=== PATIENT | female | born 1965 | race Caucasian/White ===

== ENCOUNTER 2016-10-24 11:18 | Emergency (ER) | payer OTHER ==
[2016-10-24 11:38] VITALS: BMI 30.9
[2016-10-24] MEDS ORDERED: ALBUTEROL SO4 2.5/IPRATROPIUM 0.5 INH SOL 3 ML VIAL.NEB. NEB ONE (12:40)
--- NOTE | 2016-10-24 12:40 | PDOC ---
History of Present Illness - History of Present Illness Initial Comments: 10/24/16 12:46 The patient is a 51 year old female with a past medical hx of seizures, bipolar disorder, and schizoaffective disorder who presents to the ED complaining of a cough and shortness of breath for four days. The patient states the cough is nonproductive. She notes she just recovered from the flu. She has been using her Nebulizer treatment with no relief. She reports she is a resident at [facility] and a Doctor came two days ago for a check up of the residents. She states he checked her heart and blood pressure. She reports a decrease in appetite, and chills. She denies fever, chest pain She denies nausea, vomiting, diarrhea Allergies: Penicillin, Sulfa, Codeine, latex Social: [facility] resident Surgical: Cholecystectomy PCP: Dr. Joan Hernandez <Edith Chambers - Last Filed: 10/24/16 13:02> - General History Source: Patient Exam Limitations: No Limitations <Prema Whitney - Last Filed: 10/24/16 16:37> - General Chief Complaint: Shortness of Breath Stated Complaint: SOB Time Seen by Provider: 10/24/16 11:40 Past History <Edith Chambers - Last Filed: 10/24/16 13:02> - Past Medical History Anemia: No Asthma: Yes Cancer: No Cardiac Disorders: No CVA: No COPD: Yes CHF: No Dementia: No Diabetes: No GI Disorders: Yes (ACID REFLUX,HEP C) Disorders: No HTN: No Hypercholesterolemia: No Kidney Stones: No Liver Disease: Yes (cirrhosis, Hep C) Psychiatric Problems: Yes (bipolar, anxiety) Suicide Attempt (Hx): Yes (PT DO,'T WANT TO ANSWER THIS QUESTION.) Seizures: Yes Thyroid Disease: No - Surgical History Abdominal Surgery: No Appendectomy: No Cardiac Surgery: No Cholecystectomy: Yes Lung Surgery: No Neurologic Surgery: No Orthopedic Surgery: No - Reproductive History PID: No - Immunization History Immunization Up to Date: Yes - Psycho/Social/Smoking Cessation Hx Anxiety: No Suicidal Ideation: No Smoking History: Current every day smoker Have you smoked in the past 12 months: Yes Number of Cigarettes Smoked Daily: 1 Information on smoking cessation initiated: Yes 'Breaking Loose' booklet given: 07/22/15 Hx Alcohol Use: No Drug/Substance Use Hx: No Substance Use Type: Cocaine, Opiates Hx Substance Use Treatment: Yes (completed this program in 2005.) <Prema Whitney - Last Filed: 10/24/16 16:37> - Past Medical History Allergies/Adverse Reactions: Allergies Allergy/AdvReac Type Severity Reaction Status Date / Time Penicillins Allergy Severe Rash Verified 08/29/16 22:17 Sulfa (Sulfonamide Allergy Severe Rash Verified 08/29/16 22:17 Antibiotics) azithromycin [From Zithromax] Allergy Verified 10/24/16 11:40 codeine Allergy Hives Verified 08/29/16 22:17 erythromycin base Allergy Verified 10/24/16 11:40 haloperidol [From Haldol] Allergy Swelling Verified 08/29/16 22:17 iodine Allergy Verified 10/24/16 11:40 iron Allergy Verified 10/24/16 11:40 lactase [From Dairy Aid] Allergy Verified 08/29/16 22:17 latex Allergy Hives Verified 08/29/16 22:17 phenobarbital Allergy Verified 08/29/16 22:17 Pork/Porcine Containing Allergy Verified 08/29/16 22:17 Products shellfish derived Allergy Difficulty Verified 08/29/16 22:17 Breathing tetracycline Allergy Verified 10/24/16 11:40 Home Medications: Ambulatory Orders Albuterol Sulfate [Proair Respiclick] 90 mcg IH QID PRN 08/19/16 Aspirin [ASA -] 81 mg PO DAILY 08/19/16 Divalproex [Depakote -] 1,000 mg PO BID 08/19/16 Topiramate 100 mg PO DAILY 08/19/16 Albuterol 0.083% Nebulizer Justa [Ventolin 0.083% Nebulizer Soln -] 1 neb NEB Q6H PRN #30 vial 10/24/16 Bisacodyl [Dulcolax] 10 mg PO DAILY 10/24/16 Budesonide/Formeterol Fumarate [SYMBICORT 80/4.5mcg -] 1 inh PO BID 10/24/16 Citalopram Hydrobromide [Celexa -] 20 mg PO DAILY 10/24/16 Guaifenesin [Mucinex -] 600 mg PO BID PRN #14 tablet.er 10/24/16 Lacosamide [Vimpat -] 100 mg PO BID 10/24/16 Levofloxacin [Levaquin -] 500 mg PO DAILY #7 tablet 10/24/16 Pantoprazole Sodium [Protonix -] 40 mg PO DAILY 10/24/16 Prednisone [Deltasone -] 60 mg PO DAILY #12 tablet 10/24/16 Tiotropium [place] [Spiriva] 1 inh IH BID 10/24/16 Review of Systems - Review of Systems Able to Perform ROS?: Yes Comments:: 10/24/16 12:47 GENERAL/CONSTITUTIONAL: +Chills, Decreased appetite. No: fever, weakness. HEAD, EYES, EARS, NOSE AND THROAT: No: change in vision, ear pain, discharge, sore throat, throat swelling. CARDIOVASCULAR: No: chest pain, lightheadedness, palpitations, syncope RESPIRATORY: +Cough, shortness of breath. No: wheezing, hemoptysis, stridor. GASTROINTESTINAL: No: nausea, vomiting, abdominal cramping, diarrhea, rectal bleeding, constipation. GENITOURINARY: No: dysuria, hematuria, frequency, urgency, flank pain. MUSCULOSKELETAL: No: back pain, neck pain, joint pain, muscle swelling or pain SKIN: No: lesions, pallor, rash or easy bruising. NEUROLOGIC: No: headache, vertigo, paresthesias, weakness ENDOCRINE: No: unexplained weight gain or loss HEMATOLOGIC/LYMPHATIC: No: anemia, easy bleeding, swelling nodes <Edith Chambers - Last Filed: 10/24/16 13:02> *Physical Exam - Vital Signs Last Vital Signs Temp Pulse Resp BP Pulse Ox 98.1 F 82 16 101/71 96 10/24/16 11:34 10/24/16 11:34 10/24/16 11:34 10/24/16 11:34 10/24/16 11:34 - Physical Exam Comments: 10/24/16 12:47 GENERAL: The patient is in no acute distress. HEAD: Normal with no signs of trauma. EYES: PERRLA, EOMI, sclera anicteric, conjunctiva clear. ENT: Ears normal, nares patent, oropharynx clear without exudates. Moist mucous membranes. NECK: Normal range of motion, supple without lymphadenopathy, JVD, or masses. LUNGS: Breath sounds equal, clear to auscultation bilaterally. No wheezes, and no crackles. HEART:Regular rate and rhythm, normal S1 and S2 without murmur, rub or gallop. ABDOMEN: Soft, nontender, normoactive bowel sounds. No guarding, no rebound. EXTREMITIES: Normal range of motion, no edema. No clubbing or cyanosis. No erythema, or tenderness. NEUROLOGICAL: Cranial nerves II through XII grossly intact. Normal speech. No focal neurological deficits. MUSCULOSKELETAL: Back nontender to palpation, no CVA tenderness SKIN: Warm, Dry, normal turgor, no rashes or lesions noted. <Edith Chambers - Last Filed: 10/24/16 13:02> - Vital Signs Last Vital Signs Temp Pulse Resp BP Pulse Ox 98.1 F 82 16 101/71 96 10/24/16 11:34 10/24/16 11:34 10/24/16 11:34 10/24/16 11:34 10/24/16 11:34 <Prema Whitney - Last Filed: 10/24/16 16:37> Heart Score/ECG Review #1 ECG reviewed & interpreted by me at: 12:50 10/24/16 12:50 Twelve-lead EKG was performed and reviewed by me. There is normal sinus rhythm with a normal rate of 58 bpm. The axis is normal. The intervals are normal - pr: 172ms, QRS:72ms, Qtc:420ms. There are no ST or T wave abnormalities. <Prema Whitney - Last Filed: 10/24/16 16:37> ED Treatment Course - RADIOLOGY Radiograph Interpretation: 10/24/16 13:03 Chest X-Ray Impression: New density right base since prior study of 08/30/2016 Reported By: Deshaun Mendoza MD 10/24/16 1222 <Edith Chambers - Last Filed: 10/24/16 13:02> - LABORATORY CBC & Chemistry Diagram: 10/24/16 14:00 10/24/16 14:00 - RADIOLOGY Radiology Studies Ordered: Category Date Time Status CHEST X-RAY PORTABLE* [RAD] Stat Radiology 10/24/16 11:42 Completed <Prema Whitney - Last Filed: 10/24/16 16:37> Medical Decision Making - Medical Decision Making 10/24/16 12:39 A portion of this note was documented by scribe services under my direction. I have reviewed the details of the note, within reason, and agree with the documentation with the following case summary and management plan written by me. Nursing documentation reviewed and incorporated into medical decision making 10/24/16 12:51 This is a 51 yo f w h/o epilepsy (on Depakote and Topamax and Keppra just added by neurology), Bipolar, Schizoaffective Disorder, SC, COPD/Asthma (pt states she has had 13 intubations in the past), Pancreatitis, GERD, Hep C, Cirrhosis, Polysubstance dependence (relapsed 2014) who presents to the ER due to shortness of breath and non productive cough No chest pain Pt states she feels short of breath no recent travel No known ill contacts DD: COPD exacerbation, Asthma, Bronchitis, pneumonia, CHF CXR: New density Right Base Will re assess 10/24/16 16:03 Laboratory Tests 10/24/16 10/24/16 10/24/16 12:43 14:00 14:00 WBC 7.6 D Hgb 13.8 Hct 41.5 Plt Count 152 D Sodium 145 Potassium 4.5 Chloride 112 H BUN 13 Creatinine 0.5 L Random Glucose 87 Lactic Acid 0.956 Creatine Kinase 52 Troponin I 0.02 B-Natriuretic Peptide 491.52 H 10/24/16 16:04 Pt not hypoxic Pt lactate nml Pt BP trended and is baseline for her will: Discharge to facility Give nebs Give prednisone Give antibiotics Pt should be returned to the ER for any other concerns or complaints 10/24/16 16:[address] Garrido He agrees with plan for discharge and antibiotics <Prema Whitney - Last Filed: 10/24/16 16:37> *DC/Admit/Observation/Transfer - Attestations Scribe Attestion: 10/24/16 12:47 Documentation prepared by Edith Chambers, acting as medical resident for Prema Whitney MD/DO. <Edith Chambers - Last Filed: 10/24/16 13:02> - Discharge Dispostion Admit: No <Prema Whitney - Last Filed: 10/24/16 16:37> Diagnosis at time of Disposition: Pneumonia Qualifiers: Pneumonia type: due to unspecified organism Laterality: right Lung location: lower lobe of lung Qualified Code(s): J18.9 - Pneumonia, unspecified organism - Discharge Dispostion Disposition: HOME Condition at time of disposition: Improved - Prescriptions Prescriptions: Prednisone [Deltasone -] 60 mg PO DAILY #12 tablet Levofloxacin [Levaquin -] 500 mg PO DAILY #7 tablet Guaifenesin [Mucinex -] 600 mg PO BID PRN #14 tablet.er PRN Reason: Cough Albuterol 0.083% Nebulizer Justa [Ventolin 0.083% Nebulizer Soln -] 1 neb NEB Q6H PRN #30 vial PRN Reason: Wheezing - Referrals Referrals: Joan Hernandez [Primary Care Provider] - - Patient Instructions Printed Discharge Instructions: DI for Pneumonia -- Adult, DI for Atypical Pneumonia Additional Instructions: Maria Elena Thank you for coming in to the ER today We are sending you home with antibiotics and prednisone Please follow up with the doctor on in 5 days Please return to the ER for any other concerns or complaints
[2016-10-24] MEDS ORDERED: ALBUTEROL SO4 0.083% IH SOL 2.5 MG/3 ML VIAL.NEB. NEB ONE (13:33)
[2016-10-24] MEDS ORDERED: IPRATROPIUM BR 0.02% 0.5 MG/2.5 ML VIAL.NEB. NEB ONE (13:34)
[2016-10-24 14:05] LABS: BASOPHIL 0.6 % (0-2.0); EOSINOPHIL 1.5 % (0-4.5)
[2016-10-24 14:09] LABS: MCH 32.7 pg (25.7-33.7); MCHC 33.3 g/dl (32.0-36.0); MEAN CELL VOLUME 98.2 fl (80-96); MEAN PLT VOLUME 8.5 fl (7.5-11.1); NEUTROPHILS 42.9 % (42.8-82.8); PLATELET COUNT 152 K/MM3 (134-434); WHITE BLOOD COUNT 7.6 K/mm3 (4.0-10.0)
[2016-10-24 14:28] LABS: ALBUMIN 2.9 g/dl (3.4-5.0); ANION GAP 10 (8-16); BILIRUBIN,TOTAL 0.3 mg/dL (0.2-1.0); CALCIUM 8.1 mg/dL (8.5-10.1); CO2 23 mmol/L (21-32); CREATININE 0.5 mg/dL (0.55-1.02); GLUCOSE,RANDOM 87 mg/dL (74-106); SGPT/ALT 12 U/L (12-78); TOT PROT 6.3 g/dl (6.4-8.2)
[2016-10-24 14:31] LABS: ALK PHOS 38 U/L (45-117); SGOT/AST 12 U/L (15-37); TROPONIN I 0.02 ng/ml (0.00-0.05)
--- NOTE | 2016-10-24 16:15 | EKG ---
Test Reason : Blood Pressure : / mmHG Vent. Rate : 058 BPM Atrial Rate : 058 BPM P-R Int : 172 ms QRS Dur : 072 ms QT Int : 428 ms P-R-T Axes : 044 068 028 degrees QTc Int : 420 ms SINUS BRADYCARDIA LOW VOLTAGE QRS NONSPECIFIC ST ABNORMALITY ABNORMAL ECG WHEN COMPARED WITH ECG OF 27-SEP-2016 11:50, T WAVE INVERSION NO LONGER EVIDENT IN ANTERIOR LEADS Confirmed by MATTHEW BLACKMAN, EVARISTO ([id number]) on 10/24/2016 4:14:54 PM Referred By: Confirmed By:EVARISTO CASTRO MD
[2016-10-24 18:52] VITALS: BP 101/68; PULSE 73; TEMP 97.2
== END 2016-10-24 17:45 | disposition home or self-care (01) ==
LOC: JER 11:18
PROC: 3E0F7GC Introduction of Other Therapeutic Substance into Respiratory Tract, Via Natural or Artificial Opening (ICD-10-PCS; principal; 2016-10-24)
DX: J18.9 Pneumonia, unspecified organism (principal); J45.909 Unspecified asthma, uncomplicated; J44.9 Chronic obstructive pulmonary disease, unspecified; G40.802 Other epilepsy, not intractable, without status epilepticus; F25.0 Schizoaffective disorder, bipolar type; K21.9 Gastro-esophageal reflux disease without esophagitis; B18.2 Chronic viral hepatitis C; F17.210 Nicotine dependence, cigarettes, uncomplicated
CPT/HCPCS: 36415; 71010-TC; 80053; 82550; 83605; 83880; 84484; 85025; 87040; 93005; 93010; 94640; 99282-25

== ENCOUNTER 2016-10-26 22:55 | Emergency (ER) | payer OTHER ==
[2016-10-26 22:59] VITALS: BP 149/71; PULSE 71; TEMP 97.8; BMI 30.9
--- NOTE | 2016-10-26 23:34 | PDOC ---
History of Present Illness - History of Present Illness Initial Comments: 10/26/16 23:53 Patient is a 51 year old female, resident of [facility], with significant medical hx of seizures, bipolar disorder, schizoaffective disorder, hepatitis C , cirrhosis, asthma, and COPD who is presenting to the ED with worsening cough and chest pain. Patient was here 10/24/16 for nonproductive cough and shortness of breath; she was discharged with a week of levaquin, nebulizers, and prednisone. The patient returned to the ED today with complaint of worsening junky cough. She states that she gags when she lies down. Allergies: penicillins, sulfa, codeine, haloperidol, lactase, latex, phenobarbital, pork, porcine containing products, shellfish derived Social Hx: current cigarette use, past cocaine and opioid abuse Surgical Hx: cholecystectomy, x3 Neurologist: Dr. Bellamy <Sheron Echavarria - Last Filed: 10/27/16 00:04> <Alma Esqueda - Last Filed: 10/27/16 01:00> - General Chief Complaint: Respiratory Stated Complaint: S.O.B. Time Seen by Provider: 10/26/16 23:01 Past History <Sheron Echavarria - Last Filed: 10/27/16 00:04> - Past Medical History Anemia: No Asthma: Yes Cancer: No Cardiac Disorders: No CVA: No COPD: Yes CHF: No Dementia: No Diabetes: No GI Disorders: Yes (ACID REFLUX,HEP C) Disorders: No HTN: No Hypercholesterolemia: No Kidney Stones: No Liver Disease: Yes (cirrhosis, Hep C) Psychiatric Problems: Yes (bipolar, anxiety) Suicide Attempt (Hx): Yes (PT DO,'T WANT TO ANSWER THIS QUESTION.) Seizures: Yes Thyroid Disease: No - Surgical History Abdominal Surgery: No Appendectomy: No Cardiac Surgery: No Cholecystectomy: Yes Lung Surgery: No Neurologic Surgery: No Orthopedic Surgery: No - Reproductive History PID: No - Immunization History Immunization Up to Date: Yes - Psycho/Social/Smoking Cessation Hx Anxiety: No Suicidal Ideation: No Smoking History: Current every day smoker Have you smoked in the past 12 months: Yes Number of Cigarettes Smoked Daily: 1 Information on smoking cessation initiated: Yes 'Breaking Loose' booklet given: 10/26/16 Hx Alcohol Use: No Drug/Substance Use Hx: No Substance Use Type: Cocaine, Opiates Hx Substance Use Treatment: Yes (completed this program in 2005.) <Alma Esqueda - Last Filed: 10/27/16 01:00> - Past Medical History Allergies/Adverse Reactions: Allergies Allergy/AdvReac Type Severity Reaction Status Date / Time Penicillins Allergy Severe Rash Verified 10/26/16 22:56 Sulfa (Sulfonamide Allergy Severe Rash Verified 10/26/16 22:56 Antibiotics) azithromycin [From Zithromax] Allergy Verified 10/26/16 22:56 codeine Allergy Hives Verified 10/26/16 22:56 erythromycin base Allergy Verified 10/26/16 22:56 haloperidol [From Haldol] Allergy Swelling Verified 10/26/16 22:56 iodine Allergy Verified 10/26/16 22:56 iron Allergy Verified 10/26/16 22:56 lactase [From Dairy Aid] Allergy Verified 10/26/16 22:56 latex Allergy Hives Verified 10/26/16 22:56 phenobarbital Allergy Verified 10/26/16 22:56 Pork/Porcine Containing Allergy Verified 10/26/16 22:56 Products shellfish derived Allergy Difficulty Verified 10/26/16 22:56 Breathing tetracycline Allergy Verified 10/26/16 22:56 Home Medications: Ambulatory Orders Albuterol Sulfate [Proair Respiclick] 90 mcg IH QID PRN 08/19/16 Aspirin [ASA -] 81 mg PO DAILY 08/19/16 Divalproex [Depakote -] 1,000 mg PO BID 08/19/16 Topiramate 100 mg PO DAILY 08/19/16 Albuterol 0.083% Nebulizer Justa [Ventolin 0.083% Nebulizer Soln -] 1 neb NEB Q6H PRN #30 vial 10/24/16 Bisacodyl [Dulcolax] 10 mg PO DAILY 10/24/16 Budesonide/Formeterol Fumarate [SYMBICORT 80/4.5mcg -] 1 inh PO BID 10/24/16 Citalopram Hydrobromide [Celexa -] 20 mg PO DAILY 10/24/16 Guaifenesin [Mucinex -] 600 mg PO BID PRN #14 tablet.er 10/24/16 Lacosamide [Vimpat -] 100 mg PO BID 10/24/16 Pantoprazole Sodium [Protonix -] 40 mg PO DAILY 10/24/16 Prednisone [Deltasone -] 60 mg PO DAILY #12 tablet 10/24/16 Tiotropium [place] [Spiriva] 1 inh IH BID 10/24/16 Review of Systems - Review of Systems Comments:: 10/26/16 23:56 CONSTITUTIONAL: Absent: fever, chills, diaphoresis, generalized weakness, malaise, loss of appetite HEENT: Absent: rhinorrhea, nasal congestion, throat pain, throat swelling, difficulty swallowing, mouth swelling, ear pain, eye pain, visual changes CARDIOVASCULAR: Present: chest pain Absent: syncope, palpitations, irregular heart rate, lightheadedness, peripheral edema RESPIRATORY: Present: cough Absent: shortness of breath, dyspnea with exertion, orthopnea, wheezing, stridor , hemoptysis GASTROINTESTINAL: Absent: abdominal pain, abdominal distension, nausea, vomiting, diarrhea, constipation, melena, hematochezia GENITOURINARY: Absent: dysuria, frequency, urgency, hesitancy, hematuria, flank pain, genital pain MUSCULOSKELETAL: Absent: myalgia, arthralgia, joint swelling SKIN: Absent: rash, itching, pallor HEMATOLOGIC/IMMUNOLOGIC: Absent: easy bleeding, easy bruising, lymphadenopathy, frequent infections ENDOCRINE: Absent: unexplained weight gain, unexplained weight loss, heat intolerance, cold intolerance NEUROLOGIC: Absent: headache, focal weakness or paresthesia, dizziness, unsteady gait, seizure, mental status changes, bladder or bowel incontinence. PSYCHIATRIC: Absent: anxiety, depression, suicidal or homicidal ideation, hallucinations <Jaret Echavarriaa - Last Filed: 10/27/16 00:04> *Physical Exam - Vital Signs Last Vital Signs Temp Pulse Resp BP Pulse Ox 97.8 F 71 18 149/71 96 10/26/16 22:57 10/26/16 22:57 10/26/16 22:57 10/26/16 22:57 10/26/16 22:57 - Physical Exam Comments: 10/26/16 23:57 GENERAL: Well developed, well nourished. Awake and alert. No acute distress. HEENT: Normocephalic, atraumatic. PERRLA, EOMI. No conjunctival pallor. Sclera are non- icteric. Moist mucous membranes. Oropharynx is clear. NECK: Supple. Full ROM. No JVD. Carotid pulses 2+ and symmetric, without bruits. No thyromegaly. No lymphadenopathy. CARDIOVASCULAR: Regular rate and rhythm. No murmurs, rubs, or gallops. Distal pulses are 2+ and symmetric. PULMONARY: Coarse wheezing. Junky cough. No evidence of respiratory distress. No rales or rhonchi. ABDOMINAL: Soft. Non-tender. Non-distended. No rebound or guarding. No organomegaly. Normoactive bowel sounds. MUSCULOSKELETAL: Normal range of motion at all joints. No bony deformities or tenderness. No CVA tenderness. EXTREMITIES: No cyanosis. No clubbing. No edema. No calf tenderness. SKIN: Warm and dry. Normal capillary refill. No rashes. No jaundice. NEUROLOGICAL: Alert, awake, appropriate. Cranial nerves 2-12 intact. Normal speech. Gait is normal without ataxia. PSYCHIATRIC: Cooperative. Good eye contact. Appropriate mood and affect. <Sheron Echavarria - Last Filed: 10/27/16 00:04> - Vital Signs Last Vital Signs Temp Pulse Resp BP Pulse Ox 97.8 F 71 18 149/71 96 10/26/16 22:57 10/26/16 22:57 10/26/16 22:57 10/26/16 22:57 10/26/16 22:57 <Alma Esqueda - Last Filed: 10/27/16 01:00> Heart Score/ECG Review #1 10/27/16 00:04 Normal sinus rhythm at 66 bpm Low voltage QRS Borderline ECG <Sheron Echavarria - Last Filed: 10/27/16 00:04> Medical Decision Making - Medical Decision Making 10/27/16 00:42 51-year-old female presents because of persistent cough. She was seen here on October 24 for the same complaint. She was placed on Levaquin, steroids and bronchodilators and discharged home -She has scant wheezing that responded to respiratory treatments. She was afebrile She was not hypoxic, pulse ox is 97% on room air EKG did not show any changes from previous EKGs The patient has only taken 3 days of her antibiotics and she needs to take 4 more days of levaquin and she also needs to complete her steroids taper Impression asthma exacerbation [place] patient to finish her medications already prescribed <Alma Esqueda - Last Filed: 10/27/16 01:00> *DC/Admit/Observation/Transfer - Attestations Scribe Attestion: 10/26/16 23:59 Documentation prepared by Sheron Echavarria, acting as medical clerk for Alma Esqueda MD. <Sheron Echavarria - Last Filed: 10/27/16 00:04> <Alma Esqueda - Last Filed: 10/27/16 01:00> Diagnosis at time of Disposition: Bronchitis - Discharge Dispostion Disposition: HOME Condition at time of disposition: Stable - Referrals Referrals: Joan Hernandez [Primary Care Provider] - - Patient Instructions Printed Discharge Instructions: DI for Chronic Bronchitis Additional Instructions: please finish taking all your levaquin and steroids that were prescribed to you on October 24
[2016-10-26] MEDS ORDERED: ALBUTEROL SO4 2.5/IPRATROPIUM 0.5 INH SOL 3 ML VIAL.NEB. NEB ONE (23:46)
[2016-10-26] MEDS ORDERED: guaiFENesin/D-METHORPHAN HB 10 ML UNIT-DOSE CUPS PO ONE (23:47)
[2016-10-27] MEDS ORDERED: ALBUTEROL SO4 2.5/IPRATROPIUM 0.5 INH SOL 3 ML VIAL.NEB. NEB ONE ×3 (00:02→00:35)
[2016-10-27] MEDS ORDERED: guaiFENesin/D-METHORPHAN HB 10 ML UNIT-DOSE CUPS ONE (00:02)
--- NOTE | 2016-11-02 12:58 | EKG ---
Test Reason : Blood Pressure : / mmHG Vent. Rate : 066 BPM Atrial Rate : 066 BPM P-R Int : 168 ms QRS Dur : 072 ms QT Int : 424 ms P-R-T Axes : 057 059 043 degrees QTc Int : 444 ms NORMAL SINUS RHYTHM LOW VOLTAGE QRS BORDERLINE ECG WHEN COMPARED WITH ECG OF 24-OCT-2016 12:27, NO SIGNIFICANT CHANGE WAS FOUND Confirmed by IVET RÍOS MD ([id number]) on 11/02/2016 12:57:58 PM Referred By: Confirmed By:IVET ROÍS MD
== END 2016-10-27 02:32 | disposition home or self-care (01) ==
LOC: JER 22:55
PROC: 3E0F7GC Introduction of Other Therapeutic Substance into Respiratory Tract, Via Natural or Artificial Opening (ICD-10-PCS; principal; 2016-10-26)
PROC: 3E0F7GC Introduction of Other Therapeutic Substance into Respiratory Tract, Via Natural or Artificial Opening (ICD-10-PCS; 2016-10-26)
DX: J40 Bronchitis, not specified as acute or chronic (principal); J45.909 Unspecified asthma, uncomplicated; J44.9 Chronic obstructive pulmonary disease, unspecified; G40.909 Epilepsy, unspecified, not intractable, without status epilepticus; F31.9 Bipolar disorder, unspecified; B18.2 Chronic viral hepatitis C
CPT/HCPCS: 93005; 93010; 94640; 99282-25

== ENCOUNTER 2016-10-31 01:15 | Emergency (ER) | payer OTHER ==
[2016-10-31 01:30] VITALS: TEMP 98.3; BMI 30.9
--- NOTE | 2016-10-31 02:38 | PDOC ---
History of Present Illness - General History Source: Patient Exam Limitations: No Limitations - History of Present Illness Initial Comments: 10/31/16 04:06 The patient is a 51-year-old female, resident of [facility], with a significant past medical history of bipolar disorder, schizoaffective disorder, migraines, hepatitis C, cirrhosis, asthma, and COPD, who presents to the ED complaining of seizures earlier today. The patient reports she has a history of seizures(on divalproex 500 mg BID), with episodes occurring every 3-4 months. Prior to her seizure episode this evening, the patient reports she has been feeling off balance for the past 4 days. She states she normally does not have trouble walking. The patient states she has also experienced decreased bowel movements for several days. Her last bowel movement was one week ago (on dulcolax). She reports no changes in appetite or urination patterns. She reports she was recently diagnosed with a respiratory infection, and has had associated chills and a non-productive cough. The patient reports she has not had her flu shot this year. She denies any recent travel or sick contacts. The patient states she must be admitted because she cannot go back home today. She denies any fever, headache, or dizziness. She denies any chest pain, diaphoresis , palpitations, or shortness of breath. She denies any nausea, vomiting, or diarrhea. Allergies: penicillins, sulfa, azithromycin, codeine, erythromycin base, haloperidol, iodine, iron, lactase, latex, phenobarbital, pork/porcine containing products, shellfish, and tetracycline Past Surgical History: Cholecystectomy, x3 Social History: Current everyday smoker. Previous cocaine and opioid abuse. No ETOH consumption. Neurologist: Dr. Bellamy <Barbi Harrison - Last Filed: 10/31/16 06:51> <Brandie Wu - Last Filed: 11/01/16 03:16> - General Chief Complaint: Seizure Stated Complaint: SEIZURES Time Seen by Provider: 10/31/16 02:37 Past History <Barbi Harrison - Last Filed: 10/31/16 06:51> - Past Medical History Anemia: No Asthma: Yes Cancer: No Cardiac Disorders: No CVA: No COPD: Yes CHF: No Dementia: No Diabetes: No GI Disorders: Yes (ACID REFLUX,HEP C) Disorders: No HTN: No Hypercholesterolemia: No Kidney Stones: No Liver Disease: Yes (cirrhosis, Hep C) Psychiatric Problems: Yes (bipolar, anxiety) Suicide Attempt (Hx): Yes (PT DO,'T WANT TO ANSWER THIS QUESTION.) Seizures: Yes Thyroid Disease: No - Surgical History Abdominal Surgery: No Appendectomy: No Cardiac Surgery: No Cholecystectomy: Yes Lung Surgery: No Neurologic Surgery: No Orthopedic Surgery: No - Reproductive History PID: No - Immunization History Immunization Up to Date: Yes - Psycho/Social/Smoking Cessation Hx Anxiety: No Suicidal Ideation: No Smoking History: Never smoked Have you smoked in the past 12 months: No Number of Cigarettes Smoked Daily: 1 Information on smoking cessation initiated: No 'Breaking Loose' booklet given: 10/26/16 Hx Alcohol Use: No Drug/Substance Use Hx: No Substance Use Type: Cocaine, Opiates Hx Substance Use Treatment: Yes (completed this program in 2005.) <Brandie Wu - Last Filed: 11/01/16 03:16> - Past Medical History Allergies/Adverse Reactions: Allergies Allergy/AdvReac Type Severity Reaction Status Date / Time Penicillins Allergy Severe Rash Verified 10/26/16 22:56 Sulfa (Sulfonamide Allergy Severe Rash Verified 10/26/16 22:56 Antibiotics) azithromycin [From Zithromax] Allergy Verified 10/26/16 22:56 codeine Allergy Hives Verified 10/26/16 22:56 erythromycin base Allergy Verified 10/26/16 22:56 haloperidol [From Haldol] Allergy Swelling Verified 10/26/16 22:56 iodine Allergy Verified 10/26/16 22:56 iron Allergy Verified 10/26/16 22:56 lactase [From Dairy Aid] Allergy Verified 10/26/16 22:56 latex Allergy Hives Verified 10/26/16 22:56 phenobarbital Allergy Verified 10/26/16 22:56 Pork/Porcine Containing Allergy Verified 10/26/16 22:56 Products shellfish derived Allergy Difficulty Verified 10/26/16 22:56 Breathing tetracycline Allergy Verified 10/26/16 22:56 Home Medications: Ambulatory Orders Albuterol Sulfate [Proair Respiclick] 90 mcg IH QID PRN 08/19/16 Aspirin [ASA -] 81 mg PO DAILY 08/19/16 Divalproex [Depakote -] 1,000 mg PO BID 08/19/16 Topiramate 100 mg PO DAILY 08/19/16 Albuterol 0.083% Nebulizer Justa [Ventolin 0.083% Nebulizer Soln -] 1 neb NEB Q6H PRN #30 vial 10/24/16 Bisacodyl [Dulcolax] 10 mg PO DAILY 10/24/16 Budesonide/Formeterol Fumarate [SYMBICORT 80/4.5mcg -] 1 inh PO BID 10/24/16 Citalopram Hydrobromide [Celexa -] 20 mg PO DAILY 10/24/16 Guaifenesin [Mucinex -] 600 mg PO BID PRN #14 tablet.er 10/24/16 Lacosamide [Vimpat -] 100 mg PO BID 10/24/16 Pantoprazole Sodium [Protonix -] 40 mg PO DAILY 10/24/16 Prednisone [Deltasone -] 60 mg PO DAILY #12 tablet 10/24/16 Tiotropium [place] [Spiriva] 1 inh IH BID 10/24/16 Review of Systems - Review of Systems Able to Perform ROS?: Yes Comments:: 10/31/16 04:06 GENERAL/CONSTITUTIONAL: +Chills. No fever. No weakness. HEAD, EYES, EARS, NOSE AND THROAT: No change in vision. No ear pain or discharge. No sore throat. CARDIOVASCULAR: No chest pain or shortness of breath. RESPIRATORY: +Cough. No wheezing or hemoptysis. GASTROINTESTINAL: +Constipation. No nausea, vomiting, or diarrhea. GENITOURINARY: No dysuria, frequency, or change in urination. MUSCULOSKELETAL: No joint or muscle swelling or pain. No neck or back pain. SKIN: No rash NEUROLOGIC: +Seizures, +difficulty walking. No headache, vertigo, loss of consciousness, or change in strength/sensation. ENDOCRINE: No increased thirst. No abnormal weight change. HEMATOLOGIC/LYMPHATIC: No anemia, easy bleeding, or history of blood clots. ALLERGIC/IMMUNOLOGIC: No hives or skin allergy. <Barbi Harrison - Last Filed: 10/31/16 06:51> *Physical Exam - Vital Signs Last Vital Signs Temp Pulse Resp BP Pulse Ox 98.3 F 71 20 90/66 95 10/31/16 01:28 10/31/16 01:28 10/31/16 01:28 10/31/16 01:28 10/31/16 01:28 - Physical Exam Comments: 10/31/16 04:09 GENERAL: Afebrile. Awake, alert, and fully oriented, in no acute distress HEAD: +Edentulous. No signs of trauma EYES: PERRLA, EOMI, sclera anicteric, conjunctiva clear ENT: +Fluid behind left ear drum. Hearing grossly normal, nares patent, oropharynx clear without exudates. Moist mucosa NECK: Normal ROM, supple, no lymphadenopathy, JVD, or masses LUNGS: Breath sounds equal, clear to auscultation bilaterally. No wheezes, and no crackles HEART: Regular rate and rhythm, normal S1 and S2, no murmurs, rubs or gallops ABDOMEN: +Gassy in lower quadrants. No guarding, no rebound. No masses EXTREMITIES: Normal range of motion, no edema. No clubbing or cyanosis. No cords, erythema, or tenderness. No flank pain. NEUROLOGICAL: +Pseudoseizure. Cranial nerves II through XII grossly intact. Normal speech, normal gait SKIN: Warm, Dry, normal turgor, no rashes or lesions noted. <Barbi Harrison - Last Filed: 10/31/16 06:51> - Vital Signs Last Vital Signs Temp Pulse Resp BP Pulse Ox 98.3 F 71 20 90/66 95 10/31/16 01:28 10/31/16 01:28 10/31/16 01:28 10/31/16 01:28 10/31/16 01:28 <Brandie Wu - Last Filed: 11/01/16 03:16> ED Treatment Course - LABORATORY CBC & Chemistry Diagram: 10/31/16 02:49 10/31/16 02:49 - ADDITIONAL ORDERS Additional order review: Laboratory Results 10/31/16 10/31/16 03:20 02:49 Sodium 146 H Potassium 3.6 Chloride 110 H Carbon Dioxide 23 Anion Gap 13 BUN 16 D Creatinine 0.6 Creat Clearance w eGFR > 60 Random Glucose 70 L Calcium 8.0 L Magnesium 2.2 Total Bilirubin 0.1 L D AST 5 L D ALT 10 L Alkaline Phosphatase 30 L D Total Protein 5.6 L Albumin 2.8 L Urine Color Yellow Urine Appearance Clear Urine pH 5.0 Ur Specific [place] 1.024 Urine Protein Negative Urine Glucose (UA) Negative Urine Ketones Trace H Urine Blood Negative Urine Nitrite Negative Urine Bilirubin Negative Urine Urobilinogen Negative Ur Leukocyte Esterase Trace H 10/31/16 02:49 RBC 3.96 MCV 98.1 H MCHC 33.1 RDW 14.1 Neutrophils % Y Lymphocytes % Y - RADIOLOGY Radiograph Interpretation: 10/31/16 06:51 EXAM: Head CT INTERPRETED BY: Dr. Galdamez REVIEWED BY: Dr. Wu IMPRESSION: No hemorrhage, gross acute infarct or change. - Medications Given in the ED: ED Medications Discontinued Medications Generic Name Dose Route Start Last Admin Trade Name Freq PRN Reason Stop Dose Admin Lactulose 20 gm 10/31/16 03:16 10/31/16 03:26 Cephulac (Oral Use) PO 10/31/16 03:17 20 gm ONCE ONE Administration Polyethylene Glycol 17 gm 10/31/16 03:16 10/31/16 03:26 Miralax (For Daily Use) - PO 10/31/16 03:17 17 gm ONCE ONE Administration <Barbi Harrison - Last Filed: 10/31/16 06:51> - LABORATORY CBC & Chemistry Diagram: 10/31/16 02:49 10/31/16 02:49 <Brandie Wu - Last Filed: 11/01/16 03:16> Medical Decision Making - Medical Decision Making 10/31/16 06:36 Patient Name: Maria Elena Lockhart THIS IS A PRELIMINARY REPORT FROM [facility] EXAM: CT of the brain without contrast. IMAGES: 66. Comparison made to the provided prior evaluation dated 09/27/2016 There is no intra/extra-axial hemorrhage, vasogenic edema/focal mass effect, CT evidence of acute infarction, interval ventriculomegaly or gross change. Impression: no hemorrhage, gross acute infarct or change. THIS DOCUMENT HAS BEEN ELECTRONICALLY SIGNED 10/31/16 06:39 Pt comes with pseudoseizures. SHe supposedly had seizures at the long-term. Here in the ER she tells us that she doesn't want to go back to the home, and she faked a seizure. WHen I called her out on it she stopped. All exams are normal, and the one med blood level is therapeutic. Head CT is normal and she has no fever and she has no other focal neuro deficits. SHe will return to the [facility]. <Brandie Wu - Last Filed: 11/01/16 03:16> *DC/Admit/Observation/Transfer - Attestations Scribe Attestion: 10/31/16 04:11 Documentation prepared by Barbi Harrison, acting as medical administrative assistant for Brandie Wu MD. <Barbi Harrison - Last Filed: 10/31/16 06:51> - Discharge Dispostion Admit: No <Brandie Wu - Last Filed: 11/01/16 03:16> Diagnosis at time of Disposition: Pseudoseizure - Discharge Dispostion Disposition: HOME Condition at time of disposition: Stable - Referrals Referrals: Michell Garrido MD [Primary Care Provider] - - Patient Instructions Printed Discharge Instructions: Seizure Disorder -- Adult, DI for Psychogenic Nonepileptic Seizures
[2016-10-31] MEDS ORDERED: LORAZEPAM CARPU-JECT 2 MG/ML DISP.SYRIN ONE (03:08)
[2016-10-31 03:16] LABS: MCH 32.5 pg (25.7-33.7); MCHC 33.1 g/dl (32.0-36.0); MEAN CELL VOLUME 98.1 fl (80-96); RDW 14.1 % (11.6-15.6); WHITE BLOOD COUNT 9.6 K/mm3 (4.0-10.0)
[2016-10-31] MEDS ORDERED: POLYETHYLENE GLYCOL 3350 119 GM BTL PO ONE (03:16)
[2016-10-31] MEDS ORDERED: LACTULOSE 20 GM/30 ML UDC (FOR ORAL USE ONLY) PO ONE (03:16)
[2016-10-31] MEDS ORDERED: LACTULOSE 20 GM/30 ML UDC (FOR ORAL USE ONLY) ONE (03:19)
[2016-10-31 03:35] LABS: ALBUMIN 2.8 g/dl (3.4-5.0); ALK PHOS 30 U/L (45-117); ANION GAP 13 (8-16); BILIRUBIN,TOTAL 0.1 mg/dL (0.2-1.0); CO2 23 mmol/L (21-32); CREATININE 0.6 mg/dL (0.55-1.02); GLUCOSE,RANDOM 70 mg/dL (74-106); MAGNESIUM 2.2 mg/dL (1.8-2.4); SGOT/AST 5 U/L (15-37); SGPT/ALT 10 U/L (12-78); TOT PROT 5.6 g/dl (6.4-8.2)
[2016-10-31 03:45] LABS: URINE APPEARANCE CLEAR; URINE BILIRUBIN NEGATIVE (NEGATIVE); URINE BLOOD NEGATIVE (NEGATIVE); URINE COLOR YELLOW; URINE GLUCOSE (UA) NEGATIVE (NEGATIVE); URINE KETONE TRACE (NEGATIVE); URINE NITRITE NEGATIVE (NEGATIVE); URINE PROTEIN NEGATIVE (NEGATIVE); URINE UROBILINOGEN NEGATIVE E.U./dl (0.2-1.0)
[2016-10-31 03:48] LABS: URINE LEUK ESTERASE TRACE (NEGATIVE)
[2016-10-31 04:41] LABS: URINE BACTERIA RARE /hpf (NONE SEEN); URINE MUCUS RARE; URINE RBC 3 /hpf (0-3); URINE WBC 5 /hpf (3-5)
[2016-10-31 05:44] LABS: PLATELET ESTIMATE ADEQUATE (NORMAL)
[2016-10-31 05:45] LABS: PLATELET COMMENT2 SLT PLT CLUMPING
[2016-10-31 06:56] VITALS: BP 108/53; PULSE 66
--- NOTE | 2016-11-01 23:42 | EKG ---
Test Reason : Blood Pressure : / mmHG Vent. Rate : 066 BPM Atrial Rate : 066 BPM P-R Int : 172 ms QRS Dur : 070 ms QT Int : 424 ms P-R-T Axes : 052 031 006 degrees QTc Int : 444 ms NORMAL SINUS RHYTHM LOW VOLTAGE QRS SEPTAL INFARCT , AGE UNDETERMINED ABNORMAL ECG WHEN COMPARED WITH ECG OF 26-OCT-2016 22:57, CANNOT RULE OUT SEPTAL INFARCT IS NOW PRESENT T WAVE VARIATION Confirmed by MICHOACANO BLACKMAN, IVET ([id number]) on 11/01/2016 11:41:53 PM Referred By: Confirmed By:IVET RÍOS MD
== END 2016-10-31 11:05 | disposition home or self-care (01) ==
LOC: JER 01:15
DX: G40.89 Other seizures (principal); F25.0 Schizoaffective disorder, bipolar type; J45.909 Unspecified asthma, uncomplicated; J44.9 Chronic obstructive pulmonary disease, unspecified; G43.909 Migraine, unspecified, not intractable, without status migrainosus; B18.2 Chronic viral hepatitis C; R26.0 Ataxic gait
CPT/HCPCS: 36415; 70450-TC; 71020-TC; 74020-TC; 80053; 80164; 81003; 81015; 83735; 85025; 93005; 93010; 99283-25

== ENCOUNTER 2016-11-11 13:04 | Emergency (ER) | payer OTHER ==
--- NOTE | 2016-11-11 13:23 | PDOC ---
History of Present Illness <Diego Willis - Last Filed: 11/11/16 15:48> - General History Source: Patient Exam Limitations: No Limitations - History of Present Illness Initial Comments: 11/11/16 15:02 The patient is a 51 year old female with significant past medical history of asthma, COPD, seizure disorder, bipolar disorder, anxiety who presents to the emergency department s/p seizure x3 today. The patient was brought in by ambulance from her assisted living facility after 3 seizures that happened this morning. The first seizure happened while she was in bed this morning. She states that she had the second before EMS arrived and the third seizure occurred en route to the hospital. The patient denies any head trauma or injuries from the seizures. She is currently complaining of a headache and right sided weakness. She denies any blurry vision, or numbness/tingling. She denies any loss of sensation. She denies chest pain or SOB. She denies abdominal pain, nausea, vomiting, or diarrhea. She denies recent illness, fevers , or chills. <Larissa Karimi - Last Filed: 11/11/16 15:57> - General Stated Complaint: SEZIURE Time Seen by Provider: 11/11/16 13:22 Past History - Past Medical History Anemia: No Asthma: Yes Cancer: No Cardiac Disorders: No CVA: No COPD: Yes CHF: No Dementia: No Diabetes: No GI Disorders: Yes (ACID REFLUX,HEP C) Disorders: No HTN: No Hypercholesterolemia: No Kidney Stones: No Liver Disease: Yes (cirrhosis, Hep C) Psychiatric Problems: Yes (bipolar, anxiety) Suicide Attempt (Hx): Yes (PT DO,'T WANT TO ANSWER THIS QUESTION.) Seizures: Yes Thyroid Disease: No - Surgical History Abdominal Surgery: No Appendectomy: No Cardiac Surgery: No Cholecystectomy: Yes Lung Surgery: No Neurologic Surgery: No Orthopedic Surgery: No - Reproductive History PID: No - Immunization History Immunization Up to Date: Yes - Psycho/Social/Smoking Cessation Hx Anxiety: No Suicidal Ideation: No Smoking History: Current every day smoker Have you smoked in the past 12 months: Yes Number of Cigarettes Smoked Daily: 1 'Breaking Loose' booklet given: 10/26/16 Hx Alcohol Use: No Drug/Substance Use Hx: No Substance Use Type: Cocaine, Opiates Hx Substance Use Treatment: Yes (completed this program in 2005.) <Diego Willis - Last Filed: 11/11/16 15:48> <Larissa Karimi - Last Filed: 11/11/16 15:57> - Past Medical History Allergies/Adverse Reactions: Allergies Allergy/AdvReac Type Severity Reaction Status Date / Time Penicillins Allergy Severe Rash Verified 10/26/16 22:56 Sulfa (Sulfonamide Allergy Severe Rash Verified 10/26/16 22:56 Antibiotics) azithromycin [From Zithromax] Allergy Verified 10/26/16 22:56 codeine Allergy Hives Verified 10/26/16 22:56 erythromycin base Allergy Verified 10/26/16 22:56 haloperidol [From Haldol] Allergy Swelling Verified 10/26/16 22:56 iodine Allergy Verified 10/26/16 22:56 iron Allergy Verified 10/26/16 22:56 lactase [From Dairy Aid] Allergy Verified 10/26/16 22:56 latex Allergy Hives Verified 10/26/16 22:56 phenobarbital Allergy Verified 10/26/16 22:56 Pork/Porcine Containing Allergy Verified 10/26/16 22:56 Products shellfish derived Allergy Difficulty Verified 10/26/16 22:56 Breathing tetracycline Allergy Verified 10/26/16 22:56 Home Medications: Ambulatory Orders Albuterol Sulfate [Proair Respiclick] 90 mcg IH QID PRN 08/19/16 Aspirin [ASA -] 81 mg PO DAILY 08/19/16 Divalproex [Depakote -] 1,000 mg PO BID 08/19/16 Topiramate 100 mg PO DAILY 08/19/16 Albuterol 0.083% Nebulizer Justa [Ventolin 0.083% Nebulizer Soln -] 1 neb NEB Q6H PRN #30 vial 10/24/16 Budesonide/Formeterol Fumarate [SYMBICORT 80/4.5mcg -] 1 inh PO BID 10/24/16 Citalopram Hydrobromide [Celexa -] 20 mg PO DAILY 10/24/16 Guaifenesin [Mucinex -] 600 mg PO BID PRN #14 tablet.er 10/24/16 Lacosamide [Vimpat -] 100 mg PO BID 10/24/16 Pantoprazole Sodium [Protonix -] 40 mg PO DAILY 10/24/16 Prednisone [Deltasone -] 60 mg PO DAILY #12 tablet 10/24/16 Tiotropium [place] [Spiriva] 1 inh IH BID 10/24/16 Levofloxacin 750 mg PO ONCE 11/11/16 Review of Systems - Review of Systems Able to Perform ROS?: Yes Comments:: 11/11/16 15:02 GENERAL/CONSTITUTIONAL: +Weakness. No fever or chills. HEAD, EYES, EARS, NOSE AND THROAT: No change in vision. No ear pain or discharge. No sore throat. CARDIOVASCULAR: No chest pain or shortness of breath. RESPIRATORY: No cough, wheezing, or hemoptysis. GASTROINTESTINAL: No nausea, vomiting, diarrhea or constipation. GENITOURINARY: No dysuria, frequency, or change in urination. MUSCULOSKELETAL: No joint or muscle swelling or pain. No neck or back pain. SKIN: No rash NEUROLOGIC: +Headache. No vertigo, loss of consciousness, or change in strength/ sensation. ENDOCRINE: No increased thirst. No abnormal weight change. HEMATOLOGIC/LYMPHATIC: No anemia, easy bleeding, or history of blood clots. ALLERGIC/IMMUNOLOGIC: No hives or skin allergy. <Larissa Karimi - Last Filed: 11/11/16 15:57> *Physical Exam - Vital Signs Last Vital Signs Temp Pulse Resp BP Pulse Ox 99.5 F 78 20 99/67 98 11/11/16 13:20 11/11/16 13:20 11/11/16 13:20 11/11/16 13:20 11/11/16 13:20 - Physical Exam Comments: 11/11/16 15:02 GENERAL: Awake, alert, and fully oriented, in no acute distress HEAD: No signs of trauma EYES: PERRLA, EOMI, sclera anicteric, conjunctiva clear ENT: Auricles normal inspection, hearing grossly normal, nares patent, oropharynx clear without exudates. Moist mucosa NECK: Normal ROM, supple, no lymphadenopathy, JVD, or masses LUNGS: Breath sounds equal, clear to auscultation bilaterally. No wheezes, and no crackles HEART: Regular rate and rhythm, normal S1 and S2, no murmurs, rubs or gallops ABDOMEN: Soft, nontender, normoactive bowel sounds. No guarding, no rebound. No masses EXTREMITIES: Normal range of motion, no edema. No clubbing or cyanosis. No cords, erythema, or tenderness NEUROLOGICAL: Cranial nerves II through XII grossly intact. Normal speech, right side extremities 4/5 muscle strength, left side extremities 5/5 muscle strength. SKIN: Warm, Dry, normal turgor, no rashes or lesions noted. <TrevLarissa - Last Filed: 11/11/16 15:57> ED Treatment Course - LABORATORY CBC & Chemistry Diagram: 11/11/16 14:00 11/11/16 14:00 <Diego Willis - Last Filed: 11/11/16 15:48> - LABORATORY CBC & Chemistry Diagram: 11/11/16 14:00 11/11/16 14:00 <TrevLarissa - Last Filed: 11/11/16 15:57> Medical Decision Making - Medical Decision Making 11/11/16 15:56 51 yo F with history of seizures. Presents today s/p seizures x3. Patient states she has a meningioma and has an appointment with a neurosurgeon on November 25, 2016. Will be referred to neurologist. <TrevLarissa - Last Filed: 11/11/16 15:57> *DC/Admit/Observation/Transfer - Discharge Dispostion Admit: No <Diego Willis - Last Filed: 11/11/16 15:48> - Attestations Scribe Attestion: 11/11/16 13:43 Documentation prepared by Larissa Karimi, acting as durable medical equipment technician for Diego Willis DO. <TrevLarissa - Last Filed: 11/11/16 15:57> Diagnosis at time of Disposition: Seizure cerebral, Breakthrough seizure, History of meningioma of the brain - Referrals Referrals: Baudilio Dean MD [Staff Physician] - - Patient Instructions Printed Discharge Instructions: DI for Seizure Disorder -- Adult Additional Instructions: Maria Elena- Keep your appointment with the Neurosurgeon on November 25. I gave you ativan here in the ED which means that you probably wont have any more seizures today. Take your medicines as prescribed and call Dr[facility] to get the first available appointment. Return to us if any problems. Best- Dr. Diego Willis
[2016-11-11 13:36] VITALS: BMI 68.1
[2016-11-11] MEDS ORDERED: LORazepam 1 MG TABLET PO ONE ×2 (13:49→15:47)
[2016-11-11 14:30] LABS: BASOPHIL 0.3 % (0-2.0); MEAN CELL VOLUME 97.1 fl (80-96); MEAN PLT VOLUME 9.1 fl (7.5-11.1); NEUTROPHILS 69.8 % (42.8-82.8); PLATELET COUNT 107 K/MM3 (134-434); RDW 13.9 % (11.6-15.6)
[2016-11-11] MEDS ORDERED: LORazepam 0.5 MG TABLET ONE ×2 (14:31→15:59)
[2016-11-11 15:07] LABS: ALBUMIN 2.9 g/dl (3.4-5.0); ALK PHOS 35 U/L (45-117); ANION GAP 10 (8-16); BILIRUBIN,TOTAL 0.2 mg/dL (0.2-1.0); CALCIUM 8.3 mg/dL (8.5-10.1); CO2 24 mmol/L (21-32); CREATININE 0.7 mg/dL (0.55-1.02); GLUCOSE,RANDOM 111 mg/dL (74-106); SGOT/AST 11 U/L (15-37); SGPT/ALT 20 U/L (12-78); TOT PROT 6.2 g/dl (6.4-8.2)
[2016-11-11] MEDS ORDERED: OXYCODONE/APAP 5/325MG COMBO TABLET PO ONE (15:47)
[2016-11-11] MEDS ORDERED: ONDANSETRON *ODT* 4 MG TABLET SL ONE (15:47)
[2016-11-11] MEDS ORDERED: OXYCODONE/APAP 5/325MG COMBO TABLET ONE (15:58)
[2016-11-11] MEDS ORDERED: ONDANSETRON 8 MG TABLET (FP) PO ONE (15:59)
[2016-11-11 16:31] VITALS: BP 100/70
[2016-11-11 17:04] VITALS: PULSE 76; TEMP 98.2
== END 2016-11-11 17:07 | disposition home or self-care (01) ==
LOC: JER 13:04
DX: R56.9 Unspecified convulsions (principal); D32.0 Benign neoplasm of cerebral meninges; J45.909 Unspecified asthma, uncomplicated; K21.9 Gastro-esophageal reflux disease without esophagitis; J44.9 Chronic obstructive pulmonary disease, unspecified; F31.9 Bipolar disorder, unspecified; B19.20 Unspecified viral hepatitis C without hepatic coma; F41.9 Anxiety disorder, unspecified; F17.210 Nicotine dependence, cigarettes, uncomplicated
CPT/HCPCS: 36415; 80053; 80164; 85025; 99282-25

== ENCOUNTER 2016-12-25 15:28 | Emergency (ER) | payer OTHER ==
--- NOTE | 2016-12-25 15:31 | PDOC ---
Rapid Medical Evaluation Time Seen by Provider: 12/25/16 15:30 Medical Evaluation: Allergies Allergy/AdvReac Type Severity Reaction Status Date / Time Penicillins Allergy Severe Rash Verified 10/26/16 22:56 Sulfa (Sulfonamide Allergy Severe Rash Verified 10/26/16 22:56 Antibiotics) azithromycin [From Zithromax] Allergy Verified 10/26/16 22:56 codeine Allergy Hives Verified 10/26/16 22:56 erythromycin base Allergy Verified 10/26/16 22:56 haloperidol [From Haldol] Allergy Swelling Verified 10/26/16 22:56 iodine Allergy Verified 10/26/16 22:56 iron Allergy Verified 10/26/16 22:56 lactase [From Dairy Aid] Allergy Verified 10/26/16 22:56 latex Allergy Hives Verified 10/26/16 22:56 phenobarbital Allergy Verified 10/26/16 22:56 Pork/Porcine Containing Allergy Verified 10/26/16 22:56 Products shellfish derived Allergy Difficulty Verified 10/26/16 22:56 Breathing tetracycline Allergy Verified 10/26/16 22:56 12/25/16 15:30 I have performed a brief in-person evaluation of this patient. Ms. Lockhart is a 51 yo F with a h/o epilepsy, Bipolar, Schizoaffective Disorder , COPD/Asthma (pt states she has had 13 intubations in the past), Pancreatitis, GERD, Hep C, Cirrhosis, Polysubstance dependence (relapsed 2014) who presents to the ER via EMS with a complaint of chills, nausea for 1 week. No fever. No diarrhea. Pt reports left lower abdominal/groin pain which she describes as burning, states it is intermittent and rates as 9/10. PT has decreased appetite , states she has not eaten in 1 week. She is just drinking liquids Has had cholecystectomy, c section in past Pertinent physical exam findings: PT HYPOTENSIVE Pt is comfortable appearing in wheelchair Left groin tenderness I have ordered the following: cbc, cmp, ua, urine culture The patient will proceed to the ED for further evaluation. 12/25/16 15:32 12/25/16 15:37 12/25/16 15:40
--- NOTE | 2016-12-25 16:27 | PDOC ---
History of Present Illness - General History Source: Patient - History of Present Illness Initial Comments: 12/25/16 16:52 The patient is a 51-year-old female, with a significant past medical history of COPD, asthma, seizure disorder, bipolar disorder, schizoaffective disorder, anxiety, Hep C, and cirrhosis, who presents to the emergency department with chills, abdominal pain, nausea, and dizziness for a week. She reports the abdominal pain is a burning sensation, and is located in the suprapubic region. She reports associated diarrhea. She reports the dizziness is causing her to lose balance. She also states that her urinary output is less than normal. The patient denies chest pain, shortness of breath, and headache. The patient denies fever, vomit, and constipation. The patient denies dysuria, frequency, urgency and hematuria. Allergies: penicillins, sulfa, azithromycin, codeine, erythromycin base, haloperidol, iron, iodine, lactase, latex, phenobarbital, pork/porcine containing products, shellfish, and tetracycline Past Surgical History: Cholecystectomy, x3 Social History: Current everyday smoker. Previous opioid and cocaine abuse. No ETOH consumption. PCP: Dr. Michell Garrido <Stephy Huang - Last Filed: 12/25/16 16:52> <Diego Willis - Last Filed: 12/25/16 18:41> - General Chief Complaint: Nausea Stated Complaint: CHILLS,NAUSEA Time Seen by Provider: 12/25/16 15:30 Past History <Stephy Huang - Last Filed: 12/25/16 16:52> - Past Medical History Anemia: No Asthma: Yes Cancer: No Cardiac Disorders: No CVA: No COPD: Yes CHF: No Dementia: No Diabetes: No GI Disorders: Yes (ACID REFLUX,HEP C) Disorders: No HTN: No Hypercholesterolemia: No Kidney Stones: No Liver Disease: Yes (cirrhosis, Hep C) Psychiatric Problems: Yes (bipolar, anxiety) Suicide Attempt (Hx): Yes (PT DO,'T WANT TO ANSWER THIS QUESTION.) Seizures: Yes Thyroid Disease: No - Surgical History Abdominal Surgery: No Appendectomy: No Cardiac Surgery: No Cholecystectomy: Yes Lung Surgery: No Neurologic Surgery: No Orthopedic Surgery: No - Reproductive History PID: No - Immunization History Immunization Up to Date: Yes - Psycho/Social/Smoking Cessation Hx Anxiety: No Suicidal Ideation: No Smoking History: Current every day smoker Have you smoked in the past 12 months: Yes Number of Cigarettes Smoked Daily: 3 Information on smoking cessation initiated: No 'Breaking Loose' booklet given: 10/26/16 Hx Alcohol Use: No Drug/Substance Use Hx: No Substance Use Type: Cocaine, Opiates Hx Substance Use Treatment: Yes (completed this program in 2005.) <Diego Willis - Last Filed: 12/25/16 18:41> - Past Medical History Allergies/Adverse Reactions: Allergies Allergy/AdvReac Type Severity Reaction Status Date / Time Penicillins Allergy Severe Rash Verified 10/26/16 22:56 Sulfa (Sulfonamide Allergy Severe Rash Verified 10/26/16 22:56 Antibiotics) azithromycin [From Zithromax] Allergy Verified 10/26/16 22:56 codeine Allergy Hives Verified 10/26/16 22:56 erythromycin base Allergy Verified 10/26/16 22:56 haloperidol [From Haldol] Allergy Swelling Verified 10/26/16 22:56 iodine Allergy Verified 10/26/16 22:56 iron Allergy Verified 10/26/16 22:56 lactase [From Dairy Aid] Allergy Verified 10/26/16 22:56 latex Allergy Hives Verified 10/26/16 22:56 ondansetron HCl Allergy Verified 12/25/16 18:04 [From Zofran (as hydrochloride)] phenobarbital Allergy Verified 10/26/16 22:56 Pork/Porcine Containing Allergy Verified 10/26/16 22:56 Products shellfish derived Allergy Difficulty Verified 10/26/16 22:56 Breathing tetracycline Allergy Verified 10/26/16 22:56 Home Medications: Ambulatory Orders Albuterol Sulfate Inhaler - [Ventolin Hfa Inhaler -] 2 inh PO Q6H 12/25/16 Aspirin [Aspirin EC] 81 mg PO DAILY 12/25/16 Benztropine Mesylate [Cogentin -] 0.5 mg PO BID 12/25/16 Bisacodyl [Dulcolax -] 5 mg PO DAILY PRN 12/25/16 Divalproex Sodium [Divalproex Sodium ER] 1,000 mg PO BID 12/25/16 Docusate Sodium [Colace -] 100 mg PO TID 12/25/16 Fluoxetine HCl [Sarafem] 40 mg PO AM 12/25/16 Levofloxacin 750 mg Ivpb [Levaquin 750 mg Premixed Ivpb -] 750 mg IVPB DAILY # 10 bag 12/25/16 Mometasone Furoate [Asmanex 220Mcg -] 1 inh IH BID 12/25/16 Pantoprazole Sodium [Protonix] 40 mg PO DAILY 12/25/16 Promethazine HCl [Phenergan -] 25 mg PO TID #21 tablet 12/25/16 Sennosides [Senna -] 2 tab PO HS 12/25/16 Topiramate [Topamax] 100 mg PO BID 12/25/16 Review of Systems - Review of Systems Able to Perform ROS?: Yes Comments:: 12/25/16 16:52 GENERAL/CONSTITUTIONAL: (+) Chills. No fever. No weakness. HEAD, EYES, EARS, NOSE AND THROAT: No change in vision. No ear pain or discharge. No sore throat. CARDIOVASCULAR: No chest pain or shortness of breath. RESPIRATORY: No cough, wheezing, or hemoptysis. GASTROINTESTINAL: (+) Abdominal pain. (+) Nausea. (+) Diarrhea. No vomiting or constipation. GENITOURINARY: (+) Decreased urinary output. No dysuria, frequency. MUSCULOSKELETAL: No joint or muscle swelling or pain. No neck or back pain. SKIN: No rash NEUROLOGIC: (+) Dizziness. No headache, loss of consciousness, or change in strength/sensation. ENDOCRINE: No increased thirst. No abnormal weight change. HEMATOLOGIC/LYMPHATIC: No anemia, easy bleeding, or history of blood clots. ALLERGIC/IMMUNOLOGIC: No hives or skin allergy. <Whitley Huanga - Last Filed: 12/25/16 16:52> *Physical Exam - Vital Signs Last Vital Signs Temp Pulse Resp BP Pulse Ox 98.1 F 72 19 88/57 100 12/25/16 15:34 12/25/16 15:34 12/25/16 15:34 12/25/16 15:34 12/25/16 15:34 - Physical Exam Comments: 12/25/16 16:52 GENERAL: Awake, alert, and fully oriented, in no acute distress HEAD: No signs of trauma EYES: PERRLA, EOMI, sclera anicteric, conjunctiva clear ENT: Auricles normal inspection, hearing grossly normal, nares patent, oropharynx clear without exudates. Moist mucosa NECK: Normal ROM, supple, no lymphadenopathy, JVD, or masses LUNGS: Breath sounds equal, clear to auscultation bilaterally. No wheezes, and no crackles HEART: Regular rate and rhythm, normal S1 and S2, no murmurs, rubs or gallops ABDOMEN: (+) Slight suprapubic tenderness. Soft, normoactive bowel sounds. No guarding, no rebound. No masses EXTREMITIES: Normal range of motion, no edema. No clubbing or cyanosis. No cords, erythema, or tenderness NEUROLOGICAL: Cranial nerves II through XII grossly intact. Normal speech, normal gait SKIN: Warm, Dry, normal turgor, no rashes or lesions noted. <Stephy Huang - Last Filed: 12/25/16 16:52> - Vital Signs Last Vital Signs Temp Pulse Resp BP Pulse Ox 98.1 F 72 19 88/57 100 12/25/16 15:34 12/25/16 15:34 12/25/16 15:34 12/25/16 15:34 12/25/16 15:34 <Diego Willis - Last Filed: 12/25/16 18:41> Heart Score/ECG Review - ECG Impressions Comment:: 12/25/16 16:53 Normal sinus rhythm Nonspecific T wave abnormality Abnormal ECG <Stephy Huang - Last Filed: 12/25/16 16:52> ED Treatment Course - LABORATORY CBC & Chemistry Diagram: 12/25/16 17:20 12/25/16 17:20 <Diego Willis - Last Filed: 12/25/16 18:41> *DC/Admit/Observation/Transfer - Attestations Scribe Attestion: 12/25/16 16:53 Documentation prepared by Stephy Huang, acting as medical laboratory assistant for Diego Willis MD. <Stephy Huang - Last Filed: 12/25/16 16:52> - Attestations Physician Attestion: 12/25/16 16:27 I, Dr. Diego Willis, attest that this document has been prepared under my direction and personally reviewed by me in its entirety. I further attest, that it accurately reflects all work, treatment, procedures and medical decision -making performed by me. <Diego Willis - Last Filed: 12/25/16 18:41> Diagnosis at time of Disposition: Urinary tract infection Qualifiers: Urinary tract infection type: site unspecified Hematuria presence: with hematuria Qualified Code(s): N39.0 - Urinary tract infection, site not specified ; R31.9 - Hematuria, unspecified - Discharge Dispostion Disposition: HOME Condition at time of disposition: Good - Prescriptions Prescriptions: Levofloxacin 750 mg Ivpb [Levaquin 750 mg Premixed Ivpb -] 750 mg IVPB DAILY # 10 bag Promethazine HCl [Phenergan -] 25 mg PO TID #21 tablet - Referrals Referrals: Michell Garrido MD [Primary Care Provider] - - Patient Instructions Printed Discharge Instructions: DI for Urinary Tract Infection (UTI) Additional Instructions: Levaquin Daily, Phenergan PRN.
[2016-12-25] MEDS ORDERED: SODIUM CHLORIDE 1,000 ML IV STA (16:49)
[2016-12-25 16:59] LABS: URINE APPEARANCE TURBID; URINE BLOOD NEGATIVE (NEGATIVE); URINE COLOR YELLOW; URINE GLUCOSE (UA) NEGATIVE (NEGATIVE); URINE KETONE 1+ (NEGATIVE); URINE NITRITE NEGATIVE (NEGATIVE); URINE UROBILINOGEN 2.0 E.U/dl E.U./dl (0.2-1.0)
[2016-12-25 17:00] LABS: URINE LEUK ESTERASE 1+ (NEGATIVE); URINE PROTEIN 2+ (NEGATIVE)
[2016-12-25 17:04] LABS: URINE MUCUS FEW; URINE WBC 20 /hpf (3-5)
[2016-12-25 17:10] VITALS: TEMP 98.5
[2016-12-25 17:42] LABS: MCH 32.4 pg (25.7-33.7); MCHC 34.2 g/dl (32.0-36.0); MEAN CELL VOLUME 94.9 fl (80-96); RDW 13.7 % (11.6-15.6)
[2016-12-25] MEDS ORDERED: LEVOFLOXACIN 250 MG TABLET (FP) PO ONE (17:52)
[2016-12-25] MEDS ORDERED: ONDANSETRON *ODT* 4 MG TABLET SL ONE (17:54)
[2016-12-25] MEDS ORDERED: LEVOFLOXACIN 500 MG TABLET (FP) ONE (17:58)
[2016-12-25] MEDS ORDERED: LEVOFLOXACIN 250 MG TABLET (FP) ONE (17:59)
[2016-12-25] MEDS ORDERED: ONDANSETRON *ODT* 4 MG TABLET ONE (17:59)
[2016-12-25 18:07] VITALS: BP 103/56; PULSE 57
[2016-12-25 18:09] LABS: INR 1.1 (0.82-1.09); PROTHROMBIN TIME (PATIENT) 12.1 SEC (9.98-11.88)
[2016-12-25 18:12] LABS: ACTIVATED PTT 39.7 SECONDS (26.9-34.4)
[2016-12-25 18:28] LABS: ALBUMIN 3.3 g/dl (3.4-5.0); ANION GAP 10 (8-16); BILIRUBIN,TOTAL 0.3 mg/dL (0.2-1.0); CALCIUM 8.4 mg/dL (8.5-10.1); CO2 22 mmol/L (21-32); CREATININE 0.6 mg/dL (0.55-1.02); GLUCOSE,RANDOM 79 mg/dL (74-106); SGPT/ALT 20 U/L (12-78); TOT PROT 6.2 g/dl (6.4-8.2)
[2016-12-25 18:29] LABS: ALK PHOS 33 U/L (45-117)
[2016-12-25 18:31] LABS: SGOT/AST 23 U/L (15-37)
[2016-12-25 18:34] LABS: MEAN PLT VOLUME 9.7 fl (7.5-11.1); PLATELET COUNT 104 K/MM3 (134-434)
[2016-12-25 18:35] LABS: PLATELET COMMENT2 NO CLOTTING DETECTED; PLATELET ESTIMATE DECREASED (NORMAL)
--- NOTE | 2016-12-27 11:19 | EKG ---
Test Reason : Blood Pressure : / mmHG Vent. Rate : 064 BPM Atrial Rate : 064 BPM P-R Int : 162 ms QRS Dur : 076 ms QT Int : 442 ms P-R-T Axes : 063 081 031 degrees QTc Int : 455 ms NORMAL SINUS RHYTHM NONSPECIFIC T WAVE ABNORMALITY ABNORMAL ECG WHEN COMPARED WITH ECG OF 31-OCT-2016 01:31, CRITERIA FOR SEPTAL INFARCT ARE NO LONGER PRESENT Confirmed by NAOMY LESLIE MD ([id number]) on 12/27/2016 11:19:08 AM Referred By: Confirmed By:NAOMY LESLIE MD
== END 2016-12-25 23:50 | disposition home or self-care (01) ==
LOC: JER 15:28 → SUPCPDRO 15:28 → JER 23:50
PROC: 3E0337Z Introduction of Electrolytic and Water Balance Substance into Peripheral Vein, Percutaneous Approach (ICD-10-PCS; principal; 2016-12-25)
DX: N39.0 Urinary tract infection, site not specified (principal); R31.9 Hematuria, unspecified; J44.9 Chronic obstructive pulmonary disease, unspecified; F25.9 Schizoaffective disorder, unspecified; K74.60 Unspecified cirrhosis of liver; B19.20 Unspecified viral hepatitis C without hepatic coma; J45.909 Unspecified asthma, uncomplicated; F41.9 Anxiety disorder, unspecified; F17.210 Nicotine dependence, cigarettes, uncomplicated
CPT/HCPCS: 36415; 71010-TC; 80053; 81003; 81015; 83605; 85025; 85610; 85730; 87040; 87086; 93005; 93010; 96360; 99285-25

== ENCOUNTER 2016-12-29 20:20 | Emergency (ER) | payer OTHER ==
--- NOTE | 2016-12-29 20:36 | PDOC ---
History of Present Illness - General History Source: Patient, EMS Exam Limitations: No Limitations - History of Present Illness Initial Comments: 12/29/16 20:51 The patient is a 51-year-old female with a significant past medical history of COPD, seizure disorder, bipolar disorder, schizoaffective disorder, anxiety, Hep C, and cirrhosis, who presents to the emergency department via EMS from [facility] who was told by staff that she is very tremulous and they had to sit her down. As per EMS patient was found by the window very tremulous and they had to sit her down before she passed out. Patient did not have any head trauma or LOC. Patient reports a migraine now. Patient was here 4 days ago for diarrhea had normal WBC and was treated for UTI. Allergies: penicillins, sulfa, azithromycin, codeine, erythromycin base, haloperidol, iron, iodine, lactase, latex, phenobarbital, pork/porcine containing products, shellfish, and tetracycline Past Surgical History: Cholecystectomy, x3 Social History: Current everyday smoker. Previous opioid and cocaine abuse. No ETOH consumption. PCP: Dr. Michell Garrido <Briseyda Quintero - Last Filed: 12/29/16 20:51> <Alma Eqsueda - Last Filed: 12/30/16 02:04> - General Stated Complaint: SEIZURE Time Seen by Provider: 12/29/16 20:34 Past History <Briseyda Quintero - Last Filed: 12/29/16 20:51> - Past Medical History Anemia: No Asthma: Yes Cancer: No Cardiac Disorders: No CVA: No COPD: Yes CHF: No Dementia: No Diabetes: No GI Disorders: Yes (ACID REFLUX,HEP C) Disorders: No HTN: No Hypercholesterolemia: No Kidney Stones: No Liver Disease: Yes (cirrhosis, Hep C) Psychiatric Problems: Yes (bipolar, anxiety) Suicide Attempt (Hx): Yes (PT DO,'T WANT TO ANSWER THIS QUESTION.) Seizures: Yes Thyroid Disease: No - Surgical History Abdominal Surgery: No Appendectomy: No Cardiac Surgery: No Cholecystectomy: Yes Lung Surgery: No Neurologic Surgery: No Orthopedic Surgery: No - Reproductive History PID: No - Immunization History Immunization Up to Date: Yes - Psycho/Social/Smoking Cessation Hx Anxiety: No Suicidal Ideation: No Smoking History: Current every day smoker Have you smoked in the past 12 months: Yes Number of Cigarettes Smoked Daily: 3 'Breaking Loose' booklet given: 10/26/16 Hx Alcohol Use: No Drug/Substance Use Hx: No Substance Use Type: Cocaine, Opiates Hx Substance Use Treatment: Yes (completed this program in 2005.) <Alma Esqueda - Last Filed: 12/30/16 02:04> - Past Medical History Allergies/Adverse Reactions: Allergies Allergy/AdvReac Type Severity Reaction Status Date / Time Penicillins Allergy Severe Rash Verified 10/26/16 22:56 Sulfa (Sulfonamide Allergy Severe Rash Verified 10/26/16 22:56 Antibiotics) azithromycin [From Zithromax] Allergy Verified 10/26/16 22:56 codeine Allergy Hives Verified 10/26/16 22:56 erythromycin base Allergy Verified 10/26/16 22:56 haloperidol [From Haldol] Allergy Swelling Verified 10/26/16 22:56 iodine Allergy Verified 10/26/16 22:56 iron Allergy Verified 10/26/16 22:56 lactase [From Dairy Aid] Allergy Verified 10/26/16 22:56 latex Allergy Hives Verified 10/26/16 22:56 ondansetron HCl Allergy Verified 12/25/16 18:04 [From Zofran (as hydrochloride)] phenobarbital Allergy Verified 10/26/16 22:56 Pork/Porcine Containing Allergy Verified 10/26/16 22:56 Products shellfish derived Allergy Difficulty Verified 10/26/16 22:56 Breathing tetracycline Allergy Verified 10/26/16 22:56 Home Medications: Ambulatory Orders Albuterol Sulfate Inhaler - [Ventolin Hfa Inhaler -] 2 inh PO Q6H 12/25/16 Aspirin [Aspirin EC] 81 mg PO DAILY 12/25/16 Bisacodyl [Dulcolax -] 5 mg PO DAILY PRN 12/25/16 Divalproex Sodium [Divalproex Sodium ER] 1,000 mg PO BID 12/25/16 Pantoprazole Sodium [Protonix] 40 mg PO DAILY 12/25/16 Topiramate [Topamax] 100 mg PO BID 12/25/16 Albuterol Sulfate [Proair Respiclick] 90 mcg IH DAILY 12/29/16 Budesonide/Formeterol Fumarate [SYMBICORT 80/4.5mcg -] 1 inh PO BID 12/29/16 Citalopram Hydrobromide [Celexa -] 20 mg PO DAILY 12/29/16 Lacosamide [Vimpat -] 100 mg PO BID 12/29/16 Tiotropium [place] [Spiriva] 1 inh PO DAILY 12/29/16 Review of Systems - Review of Systems Able to Perform ROS?: Yes Comments:: 12/29/16 20:51 CONSTITUTIONAL: Absent: fever, chills, diaphoresis, generalized weakness, malaise, loss of appetite HEENT: Absent: rhinorrhea, nasal congestion, throat pain, throat swelling, difficulty swallowing, mouth swelling, ear pain, eye pain, visual Changes CARDIOVASCULAR: Absent: chest pain, syncope, palpitations, irregular heart rate, lightheadedness , peripheral edema RESPIRATORY: Absent: cough, shortness of breath, dyspnea with exertion, orthopnea, wheezing, stridor, hemoptysis GASTROINTESTINAL: Absent: abdominal pain, abdominal distension, nausea, vomiting, diarrhea, constipation, melena, hematochezia GENITOURINARY: Absent: dysuria, frequency, urgency, hesitancy, hematuria, flank pain, genital pain MUSCULOSKELETAL: Absent: myalgia, arthralgia, joint swelling SKIN: Absent: rash, itching, pallor HEMATOLOGIC/IMMUNOLOGIC: Absent: easy bleeding, easy bruising, lymphadenopathy, frequent infections ENDOCRINE: Absent: unexplained weight gain, unexplained weight loss, heat intolerance, cold intolerance NEUROLOGIC: Present: headache, tremulous Absent: focal weakness or paresthesias, dizziness, unsteady gait, seizure, mental status changes, bladder or bowel incontinence PSYCHIATRIC: Absent: anxiety, depression, suicidal or homicidal ideation, hallucinations. <Briseyda Quintero - Last Filed: 12/29/16 20:51> *Physical Exam - Vital Signs Last Vital Signs Temp Pulse Resp BP Pulse Ox 98.2 F 76 17 104/73 98 12/29/16 20:43 12/29/16 20:43 12/29/16 20:43 12/29/16 20:43 12/29/16 20:43 - Physical Exam Comments: 12/29/16 20:52 GENERAL: Upon arrival patient was alert and oriented no postictal confusion, she said she was tremulous and showed me look Im tremulous and she was tremulous during which time she remained converse and alert. HEENT: Normocephalic, atraumatic. PERRLA, EOMI. No conjunctival pallor. Sclera are non- icteric. Moist mucous membranes. Oropharynx is clear. NECK: Supple. Full ROM. No JVD. Carotid pulses 2+ and symmetric, without bruits. No thyromegaly. No lymphadenopathy. CARDIOVASCULAR: Regular rate and rhythm. No murmurs, rubs, or gallops. Distal pulses are 2+ and symmetric. PULMONARY: No evidence of respiratory distress. Lungs clear to auscultation bilaterally. No wheezing, rales or rhonchi. ABDOMINAL: Soft. Non-tender. Non-distended. No rebound or guarding. No organomegaly. Normoactive bowel sounds. MUSCULOSKELETAL Normal range of motion at all joints. No bony deformities or tenderness. No CVA tenderness. EXTREMITIES: No cyanosis. No clubbing. No edema. No calf tenderness. SKIN: Warm and dry. Normal capillary refill. No rashes. No jaundice. NEUROLOGICAL: Alert, awake, appropriate. Cranial nerves 2-12 intact. No deficits to light touch and temperature in face, upper extremities and lower extremities. No motor deficits in the in face, upper extremities and lower extremities. Normoreflexic in the upper and lower extremities. Normal speech. PSYCHIATRIC: Cooperative. Good eye contact. Appropriate mood and affect. <Briseyda Quintero - Last Filed: 12/29/16 20:51> Medical Decision Making - Medical Decision Making 12/29/16 22:21 51 [facility] was [facility] and there was concern for a seizure -pt was alert and oriented with no focal neuro deficts -valproic acid level was actually 123 and no further depakote was given to the pt -no seizure activity was noted during her observation period 12/30/16 02:00 <Alma Esqueda - Last Filed: 12/30/16 02:04> *DC/Admit/Observation/Transfer - Attestations Scribe Attestion: 12/29/16 20:52 Documentation prepared by GIBSON Lockhart, acting as medical payment poster for Alma Esqueda MD. <Briseyda Quintero - Last Filed: 12/29/16 20:51> <Alma Esqueda - Last Filed: 12/30/16 02:04> Diagnosis at time of Disposition: Psychiatric pseudoseizure - Discharge Dispostion Disposition: HOME Condition at time of disposition: Stable - Referrals Referrals: Michell Garrido MD [Primary Care Provider] - - Patient Instructions Printed Discharge Instructions: Psychogenic Nonepileptic Seizures Additional Instructions: please followup with your regular physician
[2016-12-29] MEDS ORDERED: DIVALPROEX SODIUM 500 MG TABLET E.C. PO ONE (21:53)
[2016-12-29 23:12] VITALS: TEMP 98.7
[2016-12-30 00:05] VITALS: BP 115/75; PULSE 71
== END 2016-12-30 00:09 | disposition home or self-care (01) ==
LOC: JER 20:20
DX: F44.5 Conversion disorder with seizures or convulsions (principal); J45.909 Unspecified asthma, uncomplicated; F31.9 Bipolar disorder, unspecified; F25.9 Schizoaffective disorder, unspecified; G40.909 Epilepsy, unspecified, not intractable, without status epilepticus
CPT/HCPCS: 36415; 80164; 99282-25

== ENCOUNTER 2017-01-23 09:18 | Observation (INO) | payer OTHER ==
[2017-01-23 09:50] VITALS: BMI 26.6
[2017-01-23] MEDS ORDERED: ACETAMINOPHEN 500 MG TABLET (FP) PO ONE (09:58)
[2017-01-23] MEDS ORDERED: ACETAMINOPHEN 325 MG TABLET (FP) ONE (10:14)
[2017-01-23] MEDS ORDERED: SODIUM CHLORIDE 1,000 ML IV STA (10:20)
--- NOTE | 2017-01-23 10:20 | PDOC ---
History of Present Illness - General History Source: Patient Exam Limitations: No Limitations - History of Present Illness Initial Comments: 01/23/17 10:40 The patient is a 51 year old female, resident of [facility], with a significant past medical history of Asthma, COPD, Acid reflux, Hepatitis C, Liver cirrhosis, Bipolar, Anxiety, Schizophrenia, seizure and substance abuse who presents to the emergency department s/p fall with complaints of R shoulder and L thumb pain. The patient states she fell [facility] 2-3 stairs [facility] and injured her R shoulder and L thumb. Patient is ambulatory with walker at [place] however states another resident took it last week. Since then, she has been feeling off balance and states this is the reason for the fall. The patient denies any head trauma or LOC. She denies chest pain or headache. She denies fever, chills, nausea, vomit, diarrhea or constipation. She denies dysuria, frequency, urgency or hematuria. Allergies: penicillins, sulfa, azithromycin, codeine, erythromycin base, haloperidol, iron, iodine, lactase, latex, phenobarbital, pork/porcine containing products, shellfish, and tetracycline Past Surgical History: Cholecystectomy, x3 Social History: Current everyday smoker. Previous opioid and cocaine abuse. No ETOH consumption. <Portia Patel - Last Filed: 01/23/17 13:05> - General History Source: Patient, Old Records Exam Limitations: No Limitations <Denita Mott - Last Filed: 01/23/17 13:13> - General Chief Complaint: Pain Stated Complaint: FALL/ HAND PAIN Time Seen by Provider: 01/23/17 09:38 Past History <Portia Patel - Last Filed: 01/23/17 13:05> - Past Medical History Anemia: No Asthma: Yes Cancer: No Cardiac Disorders: No CVA: No COPD: Yes CHF: No Dementia: No Diabetes: No GI Disorders: Yes (ACID REFLUX,HEP C) Disorders: No HTN: No Hypercholesterolemia: No Kidney Stones: No Liver Disease: Yes (cirrhosis, Hep C) Psychiatric Problems: Yes (bipolar, anxiety) Suicide Attempt (Hx): Yes (PT DO,'T WANT TO ANSWER THIS QUESTION.) Seizures: Yes Thyroid Disease: No - Surgical History Abdominal Surgery: No Appendectomy: No Cardiac Surgery: No Cholecystectomy: Yes Lung Surgery: No Neurologic Surgery: No Orthopedic Surgery: No - Reproductive History PID: No - Immunization History Immunization Up to Date: Yes - Psycho/Social/Smoking Cessation Hx Anxiety: No Suicidal Ideation: No Smoking History: Current every day smoker Have you smoked in the past 12 months: Yes Number of Cigarettes Smoked Daily: 20 Information on smoking cessation initiated: Yes 'Breaking Loose' booklet given: 10/26/16 Hx Alcohol Use: No Drug/Substance Use Hx: No Substance Use Type: Cocaine, Opiates Hx Substance Use Treatment: Yes (completed this program in 2005.) <Denita Mott - Last Filed: 01/23/17 13:13> - Past Medical History Allergies/Adverse Reactions: Allergies Allergy/AdvReac Type Severity Reaction Status Date / Time Penicillins Allergy Severe Rash Verified 01/23/17 09:34 Sulfa (Sulfonamide Allergy Severe Rash Verified 01/23/17 09:34 Antibiotics) azithromycin [From Zithromax] Allergy Verified 01/23/17 09:34 codeine Allergy Hives Verified 01/23/17 09:34 erythromycin base Allergy Verified 01/23/17 09:34 haloperidol [From Haldol] Allergy Swelling Verified 01/23/17 09:34 iodine Allergy Verified 01/23/17 09:34 iron Allergy Verified 01/23/17 09:34 lactase [From Dairy Aid] Allergy Verified 01/23/17 09:34 latex Allergy Hives Verified 01/23/17 09:34 ondansetron HCl Allergy Verified 01/23/17 09:34 [From Zofran (as hydrochloride)] phenobarbital Allergy Verified 01/23/17 09:34 Pork/Porcine Containing Allergy Verified 01/23/17 09:34 Products shellfish derived Allergy Difficulty Verified 01/23/17 09:34 Breathing tetracycline Allergy Verified 01/23/17 09:34 Home Medications: Ambulatory Orders Albuterol Sulfate Inhaler - [Ventolin Hfa Inhaler -] 2 inh PO Q6H 12/25/16 Aspirin [Aspirin EC] 81 mg PO DAILY 12/25/16 Bisacodyl [Dulcolax -] 5 mg PO DAILY PRN 12/25/16 Divalproex Sodium [Divalproex Sodium ER] 1,000 mg PO BID 12/25/16 Pantoprazole Sodium [Protonix] 40 mg PO DAILY 12/25/16 Topiramate [Topamax] 100 mg PO BID 12/25/16 Albuterol Sulfate [Proair Respiclick] 90 mcg IH DAILY 12/29/16 Budesonide/Formeterol Fumarate [SYMBICORT 80/4.5mcg -] 1 inh PO BID 12/29/16 Citalopram Hydrobromide [Celexa -] 20 mg PO DAILY 12/29/16 Lacosamide [Vimpat -] 100 mg PO BID 12/29/16 Tiotropium [place] [Spiriva] 1 inh PO DAILY 12/29/16 Review of Systems - Review of Systems Able to Perform ROS?: Yes Comments:: 01/23/17 10:40 CONSTITUTIONAL: Absent: fever, chills, diaphoresis, generalized weakness, malaise, loss of appetite HEENT: Absent: rhinorrhea, nasal congestion, throat pain, throat swelling, difficulty swallowing, mouth swelling, ear pain, eye pain, visual Changes CARDIOVASCULAR: Absent: chest pain, syncope, palpitations, irregular heart rate, lightheadedness , peripheral edema RESPIRATORY: Absent: cough, shortness of breath, dyspnea with exertion, orthopnea, wheezing, stridor, hemoptysis GASTROINTESTINAL: Absent: abdominal pain, abdominal distension, nausea, vomiting, diarrhea, constipation, melena, hematochezia GENITOURINARY: Absent: dysuria, frequency, urgency, hesitancy, hematuria, flank pain, genital pain MUSCULOSKELETAL: + R shoulder pain. + L thumb pain. Absent: myalgia, arthralgia, joint swelling SKIN: Absent: rash, itching, pallor HEMATOLOGIC/IMMUNOLOGIC: Absent: easy bleeding, easy bruising, lymphadenopathy, frequent infections ENDOCRINE: Absent: unexplained weight gain, unexplained weight loss, heat intolerance, cold intolerance NEUROLOGIC: Absent: headache, focal weakness or paresthesias, dizziness, unsteady gait, seizure, mental status changes, bladder or bowel incontinence PSYCHIATRIC: Absent: anxiety, depression, suicidal or homicidal ideation, hallucinations. <Portia Patel - Last Filed: 01/23/17 13:05> *Physical Exam - Vital Signs Last Vital Signs Temp Pulse Resp BP Pulse Ox 98.1 F 94 H 22 97/64 98 01/23/17 09:34 01/23/17 09:34 01/23/17 09:34 01/23/17 09:34 01/23/17 09:34 - Physical Exam Comments: 01/23/17 10:41 GENERAL: Well developed, well nourished. Awake and alert. In no acute distress. HEENT: Normocephalic, atraumatic. PERRLA, EOMI. No conjunctival pallor. Sclera are non- icteric. Moist mucous membranes. Oropharynx is clear. NECK: Supple. Full ROM. No JVD. Carotid pulses 2+ and symmetric, without bruits. No thyromegaly. No lymphadenopathy. CARDIOVASCULAR: Regular rate and rhythm. No murmurs, rubs, or gallops. Distal pulses are 2+ and symmetric. PULMONARY: No evidence of respiratory distress. Lungs clear to auscultation bilaterally. No wheezing, rales or rhonchi. ABDOMINAL: Soft. Non-tender. Non-distended. No rebound or guarding. No organomegaly. Normoactive bowel sounds. MUSCULOSKELETAL Normal range of motion at all joints. No bony deformities or tenderness. No CVA tenderness. EXTREMITIES: No cyanosis. No clubbing. No edema. No calf tenderness. SKIN: +2 cm abrasion to anterior tibial region.+Ecchymosis and swelling, tenderness of L thumb. +Ecchymosis of mid humeral region, tricep region and superior aspect of R shoulder. Warm and dry. Normal capillary refill. No rashes. No jaundice. NEUROLOGICAL: Alert, awake, appropriate. Cranial nerves 2-12 intact. Motor Exam limited secondary to fall. PSYCHIATRIC: Cooperative. Good eye contact. Appropriate mood and affect. <Portia Patel - Last Filed: 01/23/17 13:05> - Vital Signs Last Vital Signs Temp Pulse Resp BP Pulse Ox 98.1 F 94 H 22 97/64 98 01/23/17 09:34 01/23/17 09:34 01/23/17 09:34 01/23/17 09:34 01/23/17 09:34 <Denita Mott - Last Filed: 01/23/17 13:13> Heart Score/ECG Review #1 01/23/17 11:[address] Mott NSR at 90 bpm 1st degree AV BLock SC segment depression from V3 to V5 unchanged from prior EKGs <Portia Patel - Last Filed: 01/23/17 13:05> ED Treatment Course - LABORATORY CBC & Chemistry Diagram: 01/23/17 12:10 01/23/17 12:10 - Medications Given in the ED: ED Medications Discontinued Medications Generic Name Dose Route Start Last Admin Trade Name Abi PRN Reason Stop Dose Admin Acetaminophen 1,000 mg 01/23/17 09:58 01/23/17 10:23 Tylenol - PO 01/23/17 09:59 1,000 mg ONCE ONE Administration <Portia Patel - Last Filed: 01/23/17 13:05> - LABORATORY CBC & Chemistry Diagram: 01/23/17 12:10 01/23/17 12:10 - RADIOLOGY Radiology Studies Ordered: Category Date Time Status CHEST PA & LAT [RAD] Stat Radiology 01/23/17 09:57 Ordered HUMERUS-RIGHT [RAD] Stat Radiology 01/23/17 09:57 Ordered SHOULDER-RIGHT [RAD] Stat Radiology 01/23/17 09:57 Ordered WRIST W/HAND-LEFT* [RAD] Stat Radiology 01/23/17 09:57 Ordered <Denita Mott - Last Filed: 01/23/17 13:13> Medical Decision Making - Medical Decision Making 01/23/17 11:21 CXR Impression: No acute pathology. No significant change. Reported By: Deshaun Mendoza MD Humerus Xray Impression: No acute pathology. Reported By: Deshaun Mendoza MD Shoulder Xray Impression: No acute pathology. Reported By: Deshaun Mendoza MD L Hand and Wrist Xray Impression: No acute pathology. Loss of bone density Reported By: Deshaun Mendoza MD 01/23/17 13:05 1:05 PM microblogged Hospitalist for observation admission <Portia Patel - Last Filed: 01/23/17 13:05> - Medical Decision Making 01/23/17 10:21 51-year-old female with history of bipolar disorder, schizophrenia, COPD/asthma , seizure disorder, hep C, [facility] who presents to the emergency department with complaints of right shoulder and left hand pain status post mechanical fall yesterday. Differential diagnosis includes but is not limited to : Fracture, sprain, contusion, dehydration. Plan: 1. Plain films of right shoulder, humerus and left hand 2. Labs 3. Urine analysis 4. Pain management 5. Observe and reevaluate 01/23/17 13:08 Addendum: All labs and radiographic studies were reviewed and are noted in the EMR. Her plain films are negative. Her troponin is elevated and her EKG shows non-specific changes (ST depressions V3-V5) which are not new; however, given her c/o weakness and no prior record fo cardiac work-up will admit to tele obs for serial cardiac markers and stress test. <Denita Mott - Last Filed: 01/23/17 13:13> *DC/Admit/Observation/Transfer - Attestations Scribe Attestion: 01/23/17 10:41 Documentation prepared by Portia Patel, acting as director biomedical engineering for Denita Mott MD <Portia Patel - Last Filed: 01/23/17 13:05> - Discharge Dispostion Admit: Yes - Attestations Physician Attestion: 01/23/17 10:26 I, Dr. Denita Mott, attest that the scribes documentation that appears above has been prepared under my direction and personally reviewed by me in its entirety. I confirmed that the note above accurately reflects all work, treatment, procedures, and medical decision-making performed by me. <Denita Mott - Last Filed: 01/23/17 13:13> Diagnosis at time of Disposition: Fall, Weakness, Contusion of multiple sites of upper extremity, Elevated troponin level - Discharge Dispostion Condition at time of disposition: Stable
[2017-01-23 12:26] LABS: MCH 32.1 pg (25.7-33.7); MCHC 33.7 g/dl (32.0-36.0); MEAN CELL VOLUME 95.3 fl (80-96); MEAN PLT VOLUME 8.2 fl (7.5-11.1); PLATELET COUNT 77 K/MM3 (134-434); RDW 14.9 % (11.6-15.6); WHITE BLOOD COUNT 5.2 K/mm3 (4.0-10.0)
[2017-01-23 12:41] LABS: ALBUMIN 2.8 g/dl (3.4-5.0); ANION GAP 9 (8-16); BILIRUBIN,TOTAL 0.4 mg/dL (0.2-1.0); CALCIUM 7.9 mg/dL (8.5-10.1); CO2 23 mmol/L (21-32); CREATININE 0.5 mg/dL (0.55-1.02); GLUCOSE,RANDOM 76 mg/dL (74-106); SGOT/AST 28 U/L (15-37); SGPT/ALT 40 U/L (12-78); TOT PROT 5.4 g/dl (6.4-8.2)
[2017-01-23 12:44] LABS: ALK PHOS 33 U/L (45-117); TROPONIN I 0.06 ng/ml (0.00-0.05)
[2017-01-23 12:51] LABS: PLATELET COMMENT2 NO CLOTTING DETECTED; PLATELET ESTIMATE DECREASED (NORMAL)
--- NOTE | 2017-01-23 14:30 | HP ---
CHIEF COMPLAINT: S/P Fall PCP: HISTORY OF PRESENT ILLNESS: 51 year old female from [facility] with pmh of Asthma, COPD, Acid reflux, Hepatitis C, Liver cirrhosis, Bipolar, Anxiety, Schizophrenia, seizure and substance abuse presents to the emergency department post fall. the patient is complaining of left thumb pain 9/10, constant, non radiating, sharp. the patient is also complaining of of of Right shoulder pain. The patient said she hit her head but no loss of consciousness, no dizziness, no n/v , no neck pain, no change in vision, no confusion, no incontinence, no focal weakness or numbness, no headache. The patient said she feel off balance [facility]. No chest pain, palpitation, fever, chills , no recent cold or flu, diarrhea or constipation. No dysuria, frequency, urgency or hematuria. NO post ictal phase after fall, no lip biting, no incontinence. ER course was notable for: (1) Iv fluid NS 1Liter (2) tylenol 1gm Recent Travel: none PAST MEDICAL HISTORY: Asthma, COPD, Acid reflux, Hepatitis C, Liver cirrhosis, Bipolar, Anxiety, Schizophrenia, seizure and substance abuse PAST SURGICAL HISTORY: Cholecystectomy, x3 Social History: Smoking:Current everyday smoke, 1 pack per day Alcohol: denies Drugs: former opioid and cocaine abuse never worked Family History: none Allergies Penicillins Allergy (Severe, Verified 01/23/17 09:34) Rash Sulfa (Sulfonamide Antibiotics) Allergy (Severe, Verified 01/23/17 09:34) Rash azithromycin [From Zithromax] Allergy (Verified 01/23/17 09:34) codeine Allergy (Verified 01/23/17 09:34) Hives erythromycin base Allergy (Verified 01/23/17 09:34) haloperidol [From Haldol] Allergy (Verified 01/23/17 09:34) Swelling iodine Allergy (Verified 01/23/17 09:34) iron Allergy (Verified 01/23/17 09:34) lactase [From Dairy Aid] Allergy (Verified 01/23/17 09:34) latex Allergy (Verified 01/23/17 09:34) Hives ondansetron HCl [From Zofran (as hydrochloride)] Allergy (Verified 01/23/17 09: 34) phenobarbital Allergy (Verified 01/23/17 09:34) Pork/Porcine Containing Products Allergy (Verified 01/23/17 09:34) shellfish derived Allergy (Verified 01/23/17 09:34) Difficulty Breathing tetracycline Allergy (Verified 01/23/17 09:34) HOME MEDICATIONS: Home Medications Medication Instructions Recorded Albuterol Sulfate Inhaler - 2 inh PO Q6H 12/25/16 [Ventolin Hfa Inhaler -] Aspirin [Aspirin EC] 81 mg PO DAILY 12/25/16 Bisacodyl [Dulcolax -] 5 mg PO DAILY PRN 12/25/16 Divalproex Sodium [Divalproex 1,000 mg PO BID 12/25/16 Sodium ER] Pantoprazole Sodium [Protonix] 40 mg PO DAILY 12/25/16 Topiramate [Topamax] 100 mg PO BID 12/25/16 Albuterol Sulfate [Proair 90 mcg IH DAILY 12/29/16 Respiclick] Budesonide/Formeterol Fumarate 1 inh PO BID 12/29/16 [SYMBICORT 80/4.5mcg -] Citalopram Hydrobromide [Celexa -] 20 mg PO DAILY 12/29/16 Lacosamide [Vimpat -] 100 mg PO BID 12/29/16 Tiotropium [place] [Spiriva] 1 inh PO DAILY 12/29/16 REVIEW OF SYSTEMS CONSTITUTIONAL: Absent: fever, chills, diaphoresis, generalized weakness, malaise, loss of appetite, weight change HEENT: Absent: rhinorrhea, nasal congestion, throat pain, throat swelling, difficulty swallowing, mouth swelling, ear pain, eye pain, visual changes CARDIOVASCULAR: Absent: chest pain, syncope, palpitations, irregular heart rate, lightheadedness , peripheral edema RESPIRATORY: Absent: cough, shortness of breath, dyspnea with exertion, orthopnea, wheezing, stridor, hemoptysis GASTROINTESTINAL: Absent: abdominal pain, abdominal distension, nausea, vomiting, diarrhea, constipation, melena, hematochezia GENITOURINARY: Absent: dysuria, frequency, urgency, hesitancy, hematuria, flank pain, genital pain MUSCULOSKELETAL: left thumb and right shoulder pain Absent: myalgia, arthralgia, joint swelling, back pain, neck pain SKIN: Absent: rash, itching, pallor HEMATOLOGIC/IMMUNOLOGIC: Absent: easy bleeding, easy bruising, lymphadenopathy, frequent infections ENDOCRINE: Absent: unexplained weight gain, unexplained weight loss, heat intolerance, cold intolerance NEUROLOGIC: unsteady gait Absent: headache, focal weakness or paresthesias, dizziness,, seizure, mental status changes, bladder or bowel incontinence PSYCHIATRIC: Absent: anxiety, depression, suicidal or homicidal ideation, hallucinations. PHYSICAL EXAMINATION GENERAL: Awake, alert, and fully oriented, in no acute distress. HEAD: Normal with no signs of trauma. EYES: Pupils equal, round and reactive to light, extraocular movements intact, sclera anicteric, conjunctiva clear. No lid lag. EARS, NOSE, THROAT: Ears normal, nares patent, oropharynx clear without exudates. Moist mucous membranes. NECK: Normal range of motion, supple without lymphadenopathy, JVD, or masses. LUNGS: Breath sounds equal, clear to auscultation bilaterally. No wheezes, and no crackles. No accessory muscle use. HEART: Regular rate and rhythm, normal S1 and S2 without murmur, rub or gallop. ABDOMEN: Soft, nontender, not distended, normoactive bowel sounds, no guarding, no rebound, no masses. No hepatomegaly or splenomegaly. MUSCULOSKELETAL: slightl;y decreased range of motion in right shoulder. Left thumb swelling, redness, tenderness. No CVA tenderness. UPPER EXTREMITIES: 2+ pulses, warm, well-perfused. No cyanosis. No clubbing. No peripheral edema. LOWER EXTREMITIES: 2+ pulses, warm, well-perfused. No calf tenderness. No peripheral edema. NEUROLOGICAL: Cranial nerves II-XII intact. right eye ptosis strength 5/5 in all ext, normal sensation to light touch in all ext. Normal speech. gait not observed. Intention tremors PSYCHIATRIC: Cooperative. poor eye contact. Appropriate mood and affect. SKIN: Warm, dry, normal turgor, no rashes or lesions noted, normal capillary refill. Right shoulder abraision and tenderness ASSESSMENT/PLAN: 51 year old female from [facility] with pmh of Asthma, COPD, Acid reflux, Hepatitis C, Liver cirrhosis, Bipolar, Anxiety, Schizophrenia, seizure and substance abuse presents to the emergency department post fall with c/o right shoulder pain and left thumb pain but no fracture on Xray S/p Mechanical fall No LOC, no focal neurological deficit XRay right shoulder, left hand show no fracture CT head w/o contrast orthostatic vital cardiac monitoring trend troponins UA fall precaution OOb w assist only PT eval Asthma, COPD Symbicort Spiriva Albuterol Acid reflux Protonix Seizure Vimpat Divalproex Topamax Bipolar, Anxiety, Schizophrenia Divalproex Celexa FEN Fluid: none electrolytes: no abnormalities Nutrition: regular diet DVT prophylaxis: SCD Disposition: observation in telemetry Visit type - Emergency Visit Emergency Visit: Yes ED Registration Date: 01/23/17 Care time: The patient presented to the Emergency Department on the above date and was hospitalized for further evaluation of their emergent condition. - New Patient This patient is new to me today: Yes Date on this admission: 01/23/17 - Critical Care Critical Care patient: No
[2017-01-23] MEDS ORDERED: BISACODYL 5 MG TABLET.DR (FP) PO PRN (14:43)
[2017-01-23] MEDS ORDERED: ALBUTEROL SO4 0.083% IH SOL 2.5 MG/3 ML VIAL.NEB. NEB PRN (14:46)
[2017-01-23] MEDS ORDERED: ACETAMINOPHEN 325 MG TABLET (FP) PO PRN (14:47)
--- NOTE | 2017-01-23 15:21 | PN ---
Teaching Attending Note Name of Resident: Petr Diamond ATTENDING PHYSICIAN STATEMENT I saw and evaluated the patient. I reviewed the resident's note and discussed the case with the resident. I agree with the resident's findings and plan as documented. SUBJECTIVE: This is a 51-year-old woman, resident of [facility], with a history of asthma, COPD, GERD, hepatitis C, cirrhosis, bipolar disorder, anxiety disorder, schizophrenia, seizure disorder, substance abuse who presented to the ER complaining of right shoulder and left thumb pain after falling down 2-3 stairs. She usually ambulates with the use of a walker, but she has not been using it since another resident took it last week. OBJECTIVE: Vital Signs Period Temp Pulse Resp BP Sys/Horn Pulse Ox Last 24 Hr 98.1 F 94 22 97/64 98 HEART: S1 S2, RRR LUNGS: Clear ABDOMEN: Soft, non-tender, non-distended, normal BS EXTREMITIES: Left thumb swollen, ecchymotic and tender. Ecchymosis of right upper arm and shoulder. ASSESSMENT AND PLAN: 1. Fall with right shoulder and left thumb injuries - No evidence of fractures, dislocation - Physical therapy evaluation 2. Abnormal EKG - No change from prior - Monitor on telemetry - Serial troponins 3. Asthma/COPD - Continue Symbicort, Spiriva, Albuterol 4. GERD - Continue Protonix 5. Hepatic cirrhosis 6. Hepatitis C 7. Bipolar disorder, schizophrenia, anxiety disorder - Continue Depakote, Celexa 8. Seizure disorder - Continue Topamax, Depakote, Vimpat
--- NOTE | 2017-01-23 18:13 | EKG ---
Test Reason : Blood Pressure : / mmHG Vent. Rate : 088 BPM Atrial Rate : 088 BPM P-R Int : 208 ms QRS Dur : 086 ms QT Int : 366 ms P-R-T Axes : 034 076 009 degrees QTc Int : 442 ms NORMAL SINUS RHYTHM NONSPECIFIC ST AND T WAVE ABNORMALITY ABNORMAL ECG WHEN COMPARED WITH ECG OF 25-DEC-2016 16:37, NO SIGNIFICANT CHANGE WAS FOUND CLINICAL CORRELATION IS RECOMMENDED Confirmed by MARIA EUGENIA BLACKMAN, MEE ([id number]) on 01/23/2017 6:13:24 PM Referred By: Confirmed By:MEE DEL CID MD
[2017-01-23] MEDS: LACOSAMIDE 50 MG TABLET PO SCH (21:56)
[2017-01-23] MEDS: TOPIRAMATE 100 MG TABLET PO SCH (21:57)
[2017-01-23] MEDS: BUDESONIDE/FORMETEROL FUMARATE 80/4.5 mcg INHALER IH SCH ×2 (21:57→22:01)
[2017-01-23] MEDS: DIVALPROEX NA *ER* EXTEND REL 500 MG TABLET.SA (FP) PO SCH (21:57)
[2017-01-24 02:53] LABS: TROPONIN I 0.06 ng/ml (0.00-0.05)
[2017-01-24 09:16] LABS: THYROID STIMULATING HORMONE 1.03 uIU/ml (0.358-3.74); TROPONIN I 0.06 ng/ml (0.00-0.05)
[2017-01-24] MEDS ORDERED: PANTOPRAZOLE 40 MG TABLET (FP) PO SCH (10:00)
[2017-01-24] MEDS ORDERED: CITALOPRAM HYDROBROMIDE 20 MG TABLET (FP) PO SCH (10:00)
[2017-01-24] MEDS: LACOSAMIDE 50 MG TABLET PO SCH ×2 (10:04→22:28)
[2017-01-24] MEDS: DIVALPROEX NA *ER* EXTEND REL 500 MG TABLET.SA (FP) PO SCH ×2 (10:13→22:29)
[2017-01-24] MEDS: BUDESONIDE/FORMETEROL FUMARATE 80/4.5 mcg INHALER IH SCH ×2 (10:13→22:38)
[2017-01-24] MEDS: ACLIDINIUM BROMIDE 400 MCG/INH AERO.POWD IH SCH ×2 (10:13→22:29)
[2017-01-24] MEDS: TOPIRAMATE 100 MG TABLET PO SCH ×2 (10:13→22:29)
--- NOTE | 2017-01-24 15:14 | PN ---
Physical Exam: SUBJECTIVE: Patient seen and examined. She complains of pain in her left thumb and right shoulder. She says she is unsteady when walking and falls repeatedly. OBJECTIVE: Vital Signs Period Temp Pulse Resp BP Sys/Horn Pulse Ox Last 24 Hr 97.8 F-98 F 60-78 20-20 103-122/58-78 97-98 GENERAL: The patient is awake, alert, and fully oriented, in no acute distress. LUNGS: Breath sounds equal, clear to auscultation bilaterally, no wheezes, no crackles, no accessory muscle use. HEART: Regular rate and rhythm, S1, S2 without murmur, rub or gallop. ABDOMEN: Soft, nontender, nondistended, normoactive bowel sounds, no guarding, no rebound, no hepatosplenomegaly, no masses. EXTREMITIES: 2+ pulses, warm, well-perfused, no edema. Left thumb swollen and ecchymotic. Right shoulder and upper arm echymotic. Laboratory Results - last 24 hr 01/24/17 01/24/17 02:00 06:20 Creatine Kinase 35 36 Troponin I 0.06 H 0.06 H TSH 1.03 D Active Medications Generic Name Dose Route Start Last Admin Trade Name Freq PRN Reason Stop Dose Admin Acetaminophen 650 mg 01/23/17 14:47 01/24/17 10:04 Tylenol - PO 650 mg Q6H PRN Administration FEVER OR PAIN Aclidinium [place] 1 puff 01/24/17 10:00 01/24/17 10:13 Tudorza - IH Not Given BID LEONIE Albuterol Sulfate 1 amp 01/23/17 14:46 Ventolin 0.083% Nebulizer Soln - NEB Q4H PRN SHORT OF BREATH/WHEEZING Bisacodyl 5 mg 01/23/17 14:43 01/24/17 10:05 Dulcolax - PO 5 mg DAILY PRN Administration CONSTIPATION Budesonide/Formoterol Fumarate 1 puff 01/23/17 22:00 01/24/17 10:13 Symbicort 80/4.5mcg - IH Not Given BID LEONIE Citalopram Hydrobromide 20 mg 01/24/17 10:00 01/24/17 10:04 Celexa - PO 20 mg DAILY LEONIE Administration Divalproex Sodium 1,000 mg 01/23/17 22:00 01/24/17 10:13 Depakote *Er* - PO 1,000 mg BID LEONIE Administration Lacosamide 100 mg 01/23/17 22:00 01/24/17 10:04 Vimpat - PO 100 mg BID LEONIE Administration Pantoprazole Sodium 40 mg 01/24/17 10:00 01/24/17 10:05 Protonix - PO 40 mg DAILY LEONIE Administration Topiramate 100 mg 01/23/17 22:00 01/24/17 10:13 Topamax - PO 100 mg BID LEONIE Administration ASSESSMENT/PLAN: This is a 51-year-old woman, resident of [facility], with a history of asthma, COPD, GERD, hepatitis C, cirrhosis, bipolar disorder, anxiety disorder, schizophrenia, seizure disorder, substance abuse who presented to the ER complaining of right shoulder and left thumb pain after falling down 2-3 stairs. 1. Fall with right shoulder and left thumb injuries - No evidence of fractures, dislocation 2. Gait disturbance with frequent falls - Patient had been ambulating with the use of a walker until another resident of [facility] took it from her - Physical therapy evaluation 3. Abnormal EKG - No change from prior - No chest pain, SOB - Troponin 0.06 x 3 - Discontinue telemetry 4. Asthma/COPD - Continue Symbicort, Tudorza, Albuterol 5. GERD - Continue Protonix 6. Hepatic cirrhosis 7. Hepatitis C 8. Bipolar disorder, schizophrenia, anxiety disorder - Continue Depakote, Celexa 9. Seizure disorder - Continue Topamax, Depakote, Vimpat Visit type - Emergency Visit Emergency Visit: Yes ED Registration Date: 01/23/17 Care time: The patient presented to the Emergency Department on the above date and was hospitalized for further evaluation of their emergent condition. - New Patient This patient is new to me today: No - Critical Care Critical Care patient: No - Discharge Referral Referred to [facility] Med [facility] No
[2017-01-24] MEDS ORDERED: NAPROXEN 500 MG TABLET (FP) PO PRN (15:18)
[2017-01-24] MEDS ORDERED: PT OWN MED DRAWER 7, Y5N ONE (22:05)
[2017-01-25] MEDS ORDERED: NAPROXEN 500 MG TABLET (FP) PO PRN (00:24)
[2017-01-25] MEDS ORDERED: ALBUTEROL SO4 0.083% IH SOL 2.5 MG/3 ML VIAL.NEB. NEB PRN (00:24)
[2017-01-25] MEDS ORDERED: BISACODYL 5 MG TABLET.DR (FP) PO PRN (00:24)
[2017-01-25] MEDS ORDERED: ACETAMINOPHEN 325 MG TABLET (FP) PO PRN (00:24)
[2017-01-25] MEDS ORDERED: PT OWN MED DRAWER 7, Y5N ONE ×2 (09:17→22:32)
[2017-01-25] MEDS: CITALOPRAM HYDROBROMIDE 20 MG TABLET (FP) PO SCH (09:35)
[2017-01-25] MEDS: PANTOPRAZOLE 40 MG TABLET (FP) PO SCH (09:38)
[2017-01-25] MEDS: BUDESONIDE/FORMETEROL FUMARATE 80/4.5 mcg INHALER IH SCH ×2 (09:39→22:37)
[2017-01-25] MEDS: TOPIRAMATE 100 MG TABLET PO SCH ×2 (09:39→22:38)
[2017-01-25] MEDS: LACOSAMIDE 50 MG TABLET PO SCH ×2 (09:40→22:38)
[2017-01-25] MEDS: ACLIDINIUM BROMIDE 400 MCG/INH AERO.POWD IH SCH ×2 (09:40→22:38)
[2017-01-25] MEDS ORDERED: DIVALPROEX NA *ER* EXTEND REL 500 MG TABLET.SA (FP) PO SCH (10:00)
[2017-01-25] MEDS: DIVALPROEX SODIUM 500 MG TABLET E.C. PO SCH ×2 (10:34→22:36)
--- NOTE | 2017-01-25 11:47 | PN ---
Physical Exam: SUBJECTIVE: Patient seen and examined Pt is awake, alert and oriented Pain has improved in left thumb and right shoulder Still complaining of tenderness and decreased function in the right thumb No dizziness or confusion No numbness or tingling OBJECTIVE: Vital Signs Period Temp Pulse Resp BP Sys/Horn Pulse Ox Last 24 Hr 97.9 F-99.2 F 60-71 18-20 102-143/58-79 97-97 GENERAL: Awake, alert, and fully oriented, in no acute distress. HEAD: Normal with no signs of trauma. LUNGS: Breath sounds equal, clear to auscultation bilaterally. No wheezes, and no crackles. No accessory muscle use. HEART: Regular rate and rhythm, normal S1 and S2 without murmur, rub or gallop. ABDOMEN: Soft, nontender, not distended, normoactive bowel sounds, no guarding, no rebound, no masses. No hepatomegaly or splenomegaly. MUSCULOSKELETAL: slightly decreased range of motion in right shoulder. Left thumb swelling, tenderness. No CVA tenderness. UPPER EXTREMITIES: 2+ pulses, warm, well-perfused. No cyanosis. No clubbing. No peripheral edema. LOWER EXTREMITIES: 2+ pulses, warm, well-perfused. No calf tenderness. No peripheral edema. NEUROLOGICAL: Cranial nerves II-XII intact. strength 5/5 in all ext, normal sensation to light touch in all ext. Normal speech. gait not observed. Intention tremors PSYCHIATRIC: Cooperative. poor eye contact. Appropriate mood and affect. SKIN: Warm, dry, normal turgor, no rashes or lesions noted, normal capillary refill. Right shoulder clearing abrasion tenderness Laboratory Results - last 24 hr 01/24/17 06:20 Hemoglobin A1c % 5.3 Active Medications Generic Name Dose Route Start Last Admin Trade Name Freq PRN Reason Stop Dose Admin Acetaminophen 650 mg 01/25/17 00:24 Tylenol - PO Q6H PRN FEVER OR PAIN Aclidinium [place] 1 puff 01/25/17 10:00 01/25/17 09:40 Tudorza - IH Not Given BID LEONIE Albuterol Sulfate 1 amp 01/25/17 00:24 Ventolin 0.083% Nebulizer Soln - NEB Q4H PRN SHORT OF BREATH/WHEEZING Bisacodyl 5 mg 01/25/17 00:24 Dulcolax - PO DAILY PRN CONSTIPATION Budesonide/Formoterol Fumarate 1 puff 01/25/17 10:00 01/25/17 09:39 Symbicort 80/4.5mcg - IH Not Given BID [facility] Citalopram Hydrobromide 20 mg 01/25/17 10:00 01/25/17 09:35 Celexa - PO 20 mg DAILY LEONIE Administration Divalproex Sodium 1,000 mg 01/25/17 10:00 01/25/17 10:34 Depakote - PO 1,000 mg BID LEONIE Administration Lacosamide 100 mg 01/25/17 10:00 01/25/17 09:40 Vimpat - PO 100 mg BID LEONIE Administration Naproxen 500 mg 01/25/17 00:24 Naprosyn - PO BID PRN PAIN Pantoprazole Sodium 40 mg 01/25/17 10:00 01/25/17 09:38 Protonix - PO 40 mg DAILY LEONIE Administration Topiramate 100 mg 01/25/17 10:00 01/25/17 09:39 Topamax - PO 100 mg BID LEONIE Administration CBC, BMP 01/23/17 12:10 01/23/17 12:10 Laboratory Tests 01/23/17 01/24/17 01/24/17 12:10 02:00 06:20 Hemoglobin A1c % Troponin I 0.06 H 0.06 H 0.06 H TSH 1.03 D 01/24/17 06:20 Hemoglobin A1c % 5.3 Troponin I TSH ASSESSMENT/PLAN: 51 year old female from [facility]isted [facility] facility with pmh of Asthma, COPD, Acid reflux, Hepatitis C, Liver cirrhosis, Bipolar, Anxiety, Schizophrenia, seizure and substance abuse presents to the emergency department post fall with c/o right shoulder pain and left thumb pain but no fracture on Xray S/p Mechanical fall No LOC, no focal neurological deficit XRay right shoulder, left hand show no fracture CT head w/o contrast negative cardiac monitoring showed no event troponins negative time 3 UA negative fall precaution OOb w assist only PT eval and Tx , consider walker Naproxyn 500mg BID for pain Asthma, COPD Stable right now Symbicort Spiriva Albuterol Pt say she uses home O2, will do pre and Post Acid reflux Protonix Seizure Vimpat Divalproex Topamax Bipolar, Anxiety, Schizophrenia Divalproex Celexa FEN Fluid: none electrolytes: no abnormalities Nutrition: regular diet DVT prophylaxis: SCD Disposition: Discharge home pending PT eval, pre/Post Visit type - Emergency Visit Emergency Visit: Yes ED Registration Date: 01/23/17 Care time: The patient presented to the Emergency Department on the above date and was hospitalized for further evaluation of their emergent condition. - New Patient This patient is new to me today: Yes - Critical Care Critical Care patient: No - Discharge Referral Referred to [facility] Med P.C.: No
--- NOTE | 2017-01-25 18:24 | PN ---
Teaching Attending Note Name of Resident: Petr Diamond ATTENDING PHYSICIAN STATEMENT I saw and evaluated the patient. I reviewed the resident's note and discussed the case with the resident. I agree with the resident's findings and plan as documented. SUBJECTIVE: Pain is better. OBJECTIVE: Vital Signs Period Temp Pulse Resp BP Sys/Horn Pulse Ox Last 24 Hr 98 F-99 F 60-77 18-20 102-121/58-72 96-97 GENERAL: The patient is awake, alert, and fully oriented, in no acute distress. LUNGS: Breath sounds equal, clear to auscultation bilaterally, no wheezes, no crackles, no accessory muscle use. HEART: Regular rate and rhythm, S1, S2 without murmur, rub or gallop. ABDOMEN: Soft, nontender, nondistended, normoactive bowel sounds, no guarding, no rebound, no hepatosplenomegaly, no masses. EXTREMITIES: 2+ pulses, warm, well-perfused, no edema. Left thumb swollen and ecchymotic. Right shoulder and upper arm echymotic. ASSESSMENT AND PLAN: This is a 51-year-old woman, resident of [facility], with a history of asthma, COPD, GERD, hepatitis C, cirrhosis, bipolar disorder, anxiety disorder, schizophrenia, seizure disorder, substance abuse who presented to the ER complaining of right shoulder and left thumb pain after falling down 2-3 stairs. 1. Fall with right shoulder and left thumb injuries - No evidence of fractures, dislocation - Continue Naprosyn as needed 2. Gait disturbance with frequent falls - Patient had been ambulating with the use of a walker until another resident of [facility] took it from her - Continue PT 3. Abnormal EKG - No change from prior - No chest pain, SOB - Troponin 0.06 x 3 - Discontinue telemetry 4. Asthma/COPD - Continue Symbicort, Tudorza, Albuterol 5. GERD - Continue Protonix 6. Hepatic cirrhosis 7. Hepatitis C 8. Bipolar disorder, schizophrenia, anxiety disorder - Continue Depakote, Celexa 9. Seizure disorder - Continue Topamax, Depakote, Vimpat 10. Disposition - Plan for discharge with walker to [facility] tomorrow
[2017-01-26] MEDS ORDERED: PT OWN MED DRAWER 7, Y5N ONE ×2 (06:48→11:02)
[2017-01-26] MEDS: PANTOPRAZOLE 40 MG TABLET (FP) PO SCH (11:04)
[2017-01-26] MEDS: LACOSAMIDE 50 MG TABLET PO SCH (11:04)
[2017-01-26] MEDS: CITALOPRAM HYDROBROMIDE 20 MG TABLET (FP) PO SCH (11:05)
[2017-01-26] MEDS: DIVALPROEX SODIUM 500 MG TABLET E.C. PO SCH (11:05)
[2017-01-26] MEDS: TOPIRAMATE 100 MG TABLET PO SCH (11:06)
[2017-01-26] MEDS: BUDESONIDE/FORMETEROL FUMARATE 80/4.5 mcg INHALER IH SCH (11:09)
[2017-01-26] MEDS: ACLIDINIUM BROMIDE 400 MCG/INH AERO.POWD IH SCH (11:10)
--- NOTE | 2017-01-26 13:40 | DS ---
Physical Exam: SUBJECTIVE: Patient seen and examined Pt is awake, alert, fully oriented no s/s of acute distress No dizziness or confusion No chest pain, palpitation or sob No blurred or double vision OBJECTIVE: Vital Signs Period Temp Pulse Resp BP Sys/Horn Pulse Ox Last 24 Hr 97.6 F-98.7 F 60-77 18-20 100-125/61-83 96-97 PHYSICAL EXAM GENERAL: Awake, alert, and fully oriented, in no acute distress. HEAD: Normal with no signs of trauma. LUNGS: Breath sounds equal, clear to auscultation bilaterally. No wheezes, and no crackles. No accessory muscle use. HEART: Regular rate and rhythm, normal S1 and S2 without murmur, rub or gallop. ABDOMEN: Soft, nontender, not distended, normoactive bowel sounds, no guarding, no rebound, no masses. No hepatomegaly or splenomegaly. MUSCULOSKELETAL: slightly decreased range of motion in right shoulder. Left thumb mildly tenderness. No CVA tenderness. UPPER EXTREMITIES: 2+ pulses, warm, well-perfused. No cyanosis. No clubbing. No peripheral edema. LOWER EXTREMITIES: 2+ pulses, warm, well-perfused. No calf tenderness. No peripheral edema. PSYCHIATRIC: Cooperative. poor eye contact. Appropriate mood and affect. SKIN: Warm, dry, normal turgor, no rashes or lesions noted, normal capillary refill. Right shoulder clearing abrasion tenderness LABS CBC, BMP 01/23/17 12:10 01/23/17 12:10 HOSPITAL COURSE: Date of Admission:01/23/17 51 year old female with pmh of Asthma, COPD, Acid reflux, Hepatitis C, Liver cirrhosis, Bipolar, Anxiety, Schizophrenia, seizure and substance abuse presents to the emergency department post fall. the patient is complaining of left thumb pain 9/10, constant, non radiating, sharp. the patient is also complaining of of of Right shoulder pain. The patient said she hit her head but no loss of consciousness, no dizziness, no n/v , no neck pain, no change in vision, no confusion, no incontinence, no focal weakness or numbness, no headache. The patient said she feel off balance and fell down the stairs at the [facility] 2-3 stairs. No chest pain, palpitation, fever, chills, no recent cold or flu, diarrhea or constipation. No dysuria, frequency, urgency or hematuria. NO post ictal phase after fall, no lip biting, no incontinence. ER course was notable for:(1) Iv fluid NS 1Liter (2) tylenol 1gm 51 year old female s/p mechanical fall where she injured her lef thumb and right shoulder. Xray of the left hand showed no fracture, Xray of the right shoulder showed no fracture. CT head showed no acute events. Pt said he lost her walker. Physical therapy was ordered, pt was able to ambulate 60 feet with a walker, Pt will discharged home with a walker. Date of Discharge: 01/26/17 Minutes to complete discharge: 40 Discharge Summary Reason For Visit: FALL WEAKNESS CONTUSION OF ARM Current Active Problems Contusion of arm, multiple sites (Acute) DVT prophylaxis (Acute) Elevated troponin (Acute) Fall (Acute) Hx of myocardial infarction (Acute) Seizure disorder (Acute) Viral gastroenteritis (Acute) Weakness (Acute) Condition: Stable - Instructions Diet, Activity, Other Instructions: Discharge Home Resume Home diet Resume Home medications Follow Up with primary care physician within 1-2 weeks Use a walker to ambulate Disposition: HALFWAY FACILITY - Home Medications Comprehensive Discharge Medication List: Ambulatory Orders Albuterol Sulfate Inhaler - [Ventolin HFA Inhaler -] 2 inh PO Q6H 12/25/16 Aspirin [Aspirin EC] 81 mg PO DAILY 12/25/16 Bisacodyl [Bisacodyl -] 5 mg PO DAILY PRN 12/25/16 Pantoprazole Sodium [Protonix] 40 mg PO DAILY 12/25/16 Topiramate [Topamax -] 100 mg PO BID 12/25/16 Albuterol Sulfate [Proair Respiclick] 90 mcg IH DAILY 12/29/16 Budesonide/Formeterol Fumarate [SYMBICORT 80/4.5mcg -] 1 inh PO BID 12/29/16 Citalopram Hydrobromide [Celexa -] 20 mg PO DAILY 12/29/16 Lacosamide [Vimpat -] 100 mg PO BID 12/29/16 Tiotropium [place] [Spiriva] 1 inh PO DAILY 12/29/16 Divalproex Sodium [Depakote] 1,000 mg PO BID 01/25/17 This patient is new to me today: Yes Emergency Visit: Yes ED Registration Date: 01/23/17 Care time: The patient presented to the Emergency Department on the above date and was hospitalized for further evaluation of their emergent condition. Critical Care patient: No - Discharge Referral Referred to [facility] Med P.C.: No
--- NOTE | 2017-01-26 14:04 | PN ---
Teaching Attending Note Name of Resident: Petr Diamond ATTENDING PHYSICIAN STATEMENT I saw and evaluated the patient. I reviewed the resident's note and discussed the case with the resident. I agree with the resident's findings and plan as documented. SUBJECTIVE:currently asymptomatic. denies CP, SOB,fever, chills, or mechanical falls OBJECTIVE: Last Vital Signs Temp Pulse Resp BP Pulse Ox 98.7 F 60 20 100/62 96 01/26/17 07:00 01/26/17 07:00 01/26/17 07:00 01/26/17 07:00 01/26/17 07:00 General NAD CV S1 S2 RRR no murmur/rub/gallop skin large ecchymosis R posterior shoulder, tender on palpation. mild swelling of L thumb, able to move digit. pulse intact ASSESSMENT AND PLAN: 51yo F with multiple comorbidities presented to the ER and was admitted for further evaluation of their emergent condition 1. Mechanical fall- with R shoulder and L thumb injury. imaging negative for fx or dislocation. PT assessment and ambulates well with RW. reports fall was when pt was ambulating without RW. 2. Abnormal EKG- no change from previous. troponins stable 3. d/c to group [facility] living
[2017-01-26 15:16] VITALS: BP 127/74; PULSE 75; TEMP 98.5
== END 2017-01-26 17:12 ==
LOC: JER 09:18 → JERBED 13:13 → J4W 17:47 → J5S 01-25 00:04
PROVIDERS: ADMIT Internal Medicine; ATTEND Internal Medicine
DX: R53.1 Weakness (principal); R79.89 Other specified abnormal findings of blood chemistry; S40.022A Contusion of left upper arm, initial encounter; S40.021A Contusion of right upper arm, initial encounter; W10.9XXA Fall (on) (from) unspecified stairs and steps, initial encounter; Z91.81 History of falling; Y93.89 Activity, other specified; Y92.129 Unspecified place in nursing home as the place of occurrence of the external cause; J45.909 Unspecified asthma, uncomplicated; J44.9 Chronic obstructive pulmonary disease, unspecified; I44.0 Atrioventricular block, first degree; K21.9 Gastro-esophageal reflux disease without esophagitis; B18.2 Chronic viral hepatitis C; K74.60 Unspecified cirrhosis of liver; F31.9 Bipolar disorder, unspecified; F41.9 Anxiety disorder, unspecified; F20.9 Schizophrenia, unspecified; G40.909 Epilepsy, unspecified, not intractable, without status epilepticus; R26.2 Difficulty in walking, not elsewhere classified; Z99.89 Dependence on other enabling machines and devices; F17.210 Nicotine dependence, cigarettes, uncomplicated; Z86.59 Personal history of other mental and behavioral disorders; Z88.0 Allergy status to penicillin; Z88.2 Allergy status to sulfonamides; Z88.1 Allergy status to other antibiotic agents; Z91.013 Allergy to seafood; Z88.8 Allergy status to other drugs, medicaments and biological substances; E73.9 Lactose intolerance, unspecified; Z91.018 Allergy to other foods; R29.6 Repeated falls; R94.31 Abnormal electrocardiogram [ECG] [EKG]; I25.2 Old myocardial infarction
CPT/HCPCS: 36415; 70450-TC; 71020-TC; 73030-TC-RT; 73060-TC-RT; 73110-TC-LT; 73130-TC-LT; 80053; 82550; 83036; 84443; 84484; 85025; 93005; 93010; 94761; 97116-GP; 97161-GP; 99285-25; G0378

== ENCOUNTER 2017-03-18 17:11 | Emergency (ER) | payer OTHER ==
[2017-03-18 17:47] VITALS: BMI 28.6
--- NOTE | 2017-03-18 18:03 | PDOC ---
History of Present Illness - General History Source: Patient Exam Limitations: No Limitations - History of Present Illness Initial Comments: 03/18/17 18:38 The patient is a 51 year old female with a significant past medical history of asthma, COPD, Hep C with liver cirrhosis, bipolar, anxiety, schizophrenia, and seizure disorder, [facility] Department with dizziness and shakiness when walking. The patient admits that she was admitted to [facility] for 2 months, was worked up and pt is unclear of the diagnosis, but does recall parkinsons as a diagnosis but was not d/c with any meds for parkinsons. She was given steroids. She was discharged on Wednesday. She reports that they prescribed her hydrocortisone for the shaking. She states that she is unable to walk due to the shakiness, and that she attempts to ambulate with a walker. She described the dizziness as the room is spinning. She admits that she has had a cough for two days. She admits that she has a tumor the the back of her brain. The patient denies fever. Patient denies chest pain, palpitations, or shortness of breath. Patient denies nausea, vomiting, and diarrhea. Patient denies neck pain, or back pain. Patient denies headache, or visual changes. Allergies: penicillins, sulfa, azithromycin, codeine, erythromycin base, iron, haloperidol, iodine, latex, lactase, phenobarbital, pork/porcine products, shellfish, tetracycline Social Hx: history of substance abuse (opioid and cocaine), current everyday smoker <Mary Vincent - Last Filed: 03/18/17 18:38> <Semaj Hollis - Last Filed: 03/20/17 07:21> - General Chief Complaint: Weakness Stated Complaint: WEAKNESS Time Seen by Provider: 03/18/17 17:17 Past History <Mary Vincent - Last Filed: 03/18/17 18:38> - Past Medical History Anemia: No Asthma: Yes Cancer: No Cardiac Disorders: No CVA: No COPD: Yes CHF: No Dementia: No Diabetes: No GI Disorders: Yes (ACID REFLUX,HEP C) Disorders: No HTN: No Hypercholesterolemia: No Kidney Stones: No Liver Disease: Yes (cirrhosis, Hep C) Psychiatric Problems: Yes (bipolar, anxiety) Suicide Attempt (Hx): Yes (PT DO,'T WANT TO ANSWER THIS QUESTION.) Seizures: Yes Thyroid Disease: No - Surgical History Abdominal Surgery: No Appendectomy: No Cardiac Surgery: No Cholecystectomy: Yes Lung Surgery: No Neurologic Surgery: No Orthopedic Surgery: No - Reproductive History PID: No - Immunization History Immunization Up to Date: Yes - Psycho/Social/Smoking Cessation Hx Anxiety: No Suicidal Ideation: No Smoking History: Current every day smoker Have you smoked in the past 12 months: Yes Number of Cigarettes Smoked Daily: 3 Information on smoking cessation initiated: No 'Breaking Loose' booklet given: 10/26/16 Hx Alcohol Use: No Drug/Substance Use Hx: No Substance Use Type: Cocaine, Opiates Hx Substance Use Treatment: Yes (completed this program in 2005.) <Semaj Hollis - Last Filed: 03/20/17 07:21> - Past Medical History Allergies/Adverse Reactions: Allergies Allergy/AdvReac Type Severity Reaction Status Date / Time Penicillins Allergy Severe Rash Verified 01/23/17 09:34 Sulfa (Sulfonamide Allergy Severe Rash Verified 01/23/17 09:34 Antibiotics) azithromycin [From Zithromax] Allergy Verified 01/23/17 09:34 codeine Allergy Hives Verified 01/23/17 09:34 erythromycin base Allergy Verified 01/23/17 09:34 haloperidol [From Haldol] Allergy Swelling Verified 01/23/17 09:34 iodine Allergy Verified 01/23/17 09:34 iron Allergy Verified 01/23/17 09:34 lactase [From Dairy Aid] Allergy Verified 01/23/17 09:34 latex Allergy Hives Verified 01/23/17 09:34 ondansetron HCl Allergy Verified 01/23/17 09:34 [From Zofran (as hydrochloride)] phenobarbital Allergy Verified 01/23/17 09:34 Pork/Porcine Containing Allergy Verified 01/23/17 09:34 Products shellfish derived Allergy Difficulty Verified 01/23/17 09:34 Breathing tetracycline Allergy Verified 01/23/17 09:34 Home Medications: Ambulatory Orders Albuterol Sulfate Inhaler - [Ventolin HFA Inhaler -] 2 inh PO Q6H 12/25/16 Aspirin [Aspirin EC] 81 mg PO DAILY 12/25/16 Bisacodyl [Bisacodyl -] 5 mg PO DAILY PRN 12/25/16 Pantoprazole Sodium [Protonix] 40 mg PO DAILY 12/25/16 Topiramate [Topamax -] 100 mg PO DAILY 12/25/16 Albuterol Sulfate [Proair Respiclick] 90 mcg IH DAILY 12/29/16 Budesonide/Formeterol Fumarate [SYMBICORT 80/4.5mcg -] 1 inh PO BID 12/29/16 Citalopram Hydrobromide [Celexa -] 20 mg PO DAILY 12/29/16 Lacosamide [Vimpat -] 100 mg PO BID 12/29/16 Tiotropium [place] [Spiriva] 1 inh PO DAILY 12/29/16 Divalproex Sodium [Depakote] 1,000 mg PO BID 01/25/17 Meclizine HCl 25 mg PO TID #30 tablet 03/18/17 Review of Systems - Review of Systems Able to Perform ROS?: Yes Comments:: 03/18/17 18:38 CONSTITUTIONAL: No reported: Fever, Chills, Diaphoresis, Generalized Weakness, Malaise, Loss of Appetite HEENT: No reported: Rhinorrhea, Nasal Congestion, Throat Pain, Throat Swelling, Difficulty Swallowing, Mouth Swelling, Ear Pain, Eye Pain, Visual Changes CARDIOVASCULAR: No reported: Chest Pain, Syncope, Palpitations, Irregular Heart Rate, Peripheral Edema RESPIRATORY: Reported: + cough No reported: Shortness of Breath, SOB with Exertion, Orthopnea, Wheezing, Stridor, Hemoptysis GASTROINTESTINAL: No reported: Abdominal pain, Abdominal Distension, Nausea, Vomiting, Diarrhea, Constipation, Melena, Hematochezia GENITOURINARY: No reported: Dysuria, Frequency, Urgency, Hesitancy, Flank Pain, Genital Pain MUSCULOSKELETAL: No reported: Myalgia, Arthralgia, Joint Swelling, Back pain, Neck Pain SKIN: No reported: Rash, Itching, Pallor HEMATOLOGIC/IMMUNOLOGIC: No reported: Easy Bleeding, Easy Bruising, Lymphadenopathy, Frequent infections ENDOCRINE: No reported: Unexplained Weight Gain, Unexplained Weight Loss, Heat Intolerance , Cold Intolerance NEUROLOGIC: Reported: + dizziness, + shakiness when walking, + unsteady gait No reported: Headache, Focal Weakness, Paresthesias, Vertigo, Seizure, Mental Status Changes, Incontinence PSYCHIATRIC: No reported: Anxiety, Depression <aMry Vincent - Last Filed: 03/18/17 18:38> *Physical Exam - Vital Signs Last Vital Signs Temp Pulse Resp BP Pulse Ox 98.7 F 68 18 107/65 99 03/18/17 17:45 03/18/17 17:45 03/18/17 17:45 03/18/17 17:45 03/18/17 17:45 - Physical Exam Comments: 03/18/17 18:39 GENERAL: The patient is awake, alert, Nontoxic - in no acute distress. HEAD: Normocephalic, atraumatic. EYES: extraocular movements intact, sclera anicteric, conjunctiva clear. ENT: Normal voice, Moist mucous membranes. NECK: Normal range of motion, supple LUNGS: Breath sounds equal, clear to auscultation bilaterally. No wheezes, no rhonchi, no rales. HEART: Regular rate and rhythm, normal S1 and S2 without murmur, rub or gallop. ABDOMEN: Soft, nontender, normoactive bowel sounds. No guarding, no rebound. . No CVA tenderness EXTREMITIES: Normal range of motion, no edema. No clubbing or cyanosis. No cords, erythema, or tenderness. NEUROLOGICAL: No facial assymetry, Normal speech, normal finger to nose, +b/l UE tremor, able to stand and support her weight, but very unsteady on her feet even with assistance BACK: No midline or paraspinal tenderness in the cervical/thoracic/lumbar spine. PSYCH: Normal mood, normal affect. SKIN: Warm, Dry, normal turgor, <Mary Vincent - Last Filed: 03/18/17 18:38> - Vital Signs Last Vital Signs Temp Pulse Resp BP Pulse Ox 98.7 F 68 18 107/65 99 03/18/17 17:45 03/18/17 17:45 03/18/17 17:45 03/18/17 17:45 03/18/17 17:45 <Semaj Hollis - Last Filed: 03/20/17 07:21> Heart Score/ECG Review - ECG Impressions Comment:: 03/18/17 18:37 Twelve-lead EKG was performed and reviewed by me. There is normal sinus rhythm with a normal rate. rate of [address] changes suggestive of acute ischemia <Semaj Hollis - Last Filed: 03/20/17 07:21> ED Treatment Course - LABORATORY CBC & Chemistry Diagram: 03/18/17 18:30 06/08/17 18:30 - RADIOLOGY Radiology Studies Ordered: Category Date Time Status CHEST X-RAY PORTABLE* [RAD] Stat Radiology 03/18/17 17:53 Ordered <Semaj Hollis - Last Filed: 03/20/17 07:21> Medical Decision Making - Medical Decision Making 03/18/17 17:58 51y M xh of asthma, COPD, acid reflux, hcv, liver cirrhosis, bipolar disorder, anxiety, schizophrenia, seizures, substance abuse presents from [facility] for persistent dizziness, balance problems. Pt states she was admitted for 2 months at [facility] for evaluation of the same symptoms and was discharged on wednesday and has been feeling persistently off balance and unable to walk. Pt was given steroids, and pt reportedly has a dx of parkinsons but is not being treated with any medications. Pt states she does ambulate with a walker. On exam the pt does appear shaky, and has a very unstable gait and fell (was supported during the ambulation). There appears to be no acute symptoms per the patient. 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 will dfer further imaging until i discuss with neurology from [facility]. 03/18/17 18:59 Unable to obtain further information regarding the pts previous hospitalzation at [facility] case signed oout to dr. overton to dispo pt <Semaj Hollis - Last Filed: 03/20/17 07:21> *DC/Admit/Observation/Transfer - Attestations Scribe Attestion: 03/18/17 18:39 Documentation prepared by Mary Vincent, acting as director medical affairs for Semaj Hollis MD. <Mary Vincent - Last Filed: 03/18/17 18:38> <Semaj Hollis - Last Filed: 03/20/17 07:21> Diagnosis at time of Disposition: Shakiness - Discharge Dispostion Disposition: HOME Condition at time of disposition: Stable - Prescriptions Prescriptions: Meclizine HCl 25 mg PO TID #30 tablet - Referrals Referrals: Michell Garrido MD [Primary Care Provider] -
[2017-03-18] MEDS ORDERED: MECLIZINE HCL 25 MG TABLET (FP) PO ONE (18:38)
[2017-03-18] MEDS ORDERED: SODIUM CHLORIDE 1,000 ML IV ONE (18:38)
[2017-03-18] MEDS ORDERED: MECLIZINE HCL 25 MG TABLET (FP) ONE (19:05)
[2017-03-18 19:49] LABS: BASOPHIL 0.5 % (0-2.0); EOSINOPHIL 1.8 % (0-4.5); MCHC 33.2 g/dl (32.0-36.0); MEAN CELL VOLUME 99.4 fl (80-96); MEAN PLT VOLUME 7.9 fl (7.5-11.1); NEUTROPHILS 38.7 % (42.8-82.8); PLATELET COUNT 216 K/MM3 (134-434); RDW 15.5 % (11.6-15.6); WHITE BLOOD COUNT 7.1 K/mm3 (4.0-10.0)
[2017-03-18 20:05] LABS: ALBUMIN 3.4 g/dl (3.4-5.0); ANION GAP 8 (8-16); CALCIUM 8.5 mg/dL (8.5-10.1); CO2 26 mmol/L (21-32); CREATININE 0.7 mg/dL (0.55-1.02); GLUCOSE,RANDOM 98 mg/dL (74-106); SGOT/AST 8 U/L (15-37); SGPT/ALT 14 U/L (12-78)
[2017-03-18 20:06] LABS: ALK PHOS 42 U/L (45-117); BILIRUBIN,TOTAL 0.3 mg/dL (0.2-1.0); TOT PROT 6.4 g/dl (6.4-8.2)
[2017-03-18 20:42] LABS: INR 1.04 (0.82-1.09); PROTHROMBIN TIME (PATIENT) 11.4 SEC (9.98-11.88)
--- NOTE | 2017-03-18 21:38 | CONSULT ---
Consultation: REQUESTING PROVIDER: CONSULT REQUEST: We have been asked to medically evaluate this patient for ( specify). HISTORY OF PRESENT ILLNESS: REVIEW OF SYSTEMS: CONSTITUTIONAL: Absent: fever, chills, diaphoresis, generalized weakness, malaise, loss of appetite, weight change HEENT: Absent: rhinorrhea, nasal congestion, throat pain, throat swelling, difficulty swallowing, mouth swelling, ear pain, eye pain, visual changes CARDIOVASCULAR: Absent: chest pain, syncope, palpitations, irregular heart rate, lightheadedness , peripheral edema RESPIRATORY: Absent: cough, shortness of breath, dyspnea with exertion, orthopnea, wheezing, stridor, hemoptysis GASTROINTESTINAL: Absent: abdominal pain, abdominal distension, nausea, vomiting, diarrhea, constipation, melena, hematochezia GENITOURINARY: Absent: dysuria, frequency, urgency, hesitancy, hematuria, flank pain, genital pain MUSCULOSKELETAL: Absent: myalgia, arthralgia, joint swelling, back pain, neck pain SKIN: Absent: rash, itching, pallor HEMATOLOGIC/IMMUNOLOGIC: Absent: easy bleeding, easy bruising, lymphadenopathy, frequent infections ENDOCRINE: Absent: unexplained weight gain, unexplained weight loss, heat intolerance, cold intolerance NEUROLOGIC: Absent: headache, focal weakness or paresthesias, dizziness, unsteady gait, seizure, mental status changes, bladder or bowel incontinence PSYCHIATRIC: Absent: anxiety, depression, suicidal or homicidal ideation, hallucinations. PHYSICAL EXAMINATION Vital Signs - 24 hr 03/18/17 03/18/17 17:45 21:34 Temperature 98.7 F Pulse Rate 68 Pulse Rate [ 61 Apical] Respiratory 18 18 Rate Blood Pressure 107/65 Blood Pressure 107/65 [Right Arm] O2 Sat by Pulse 99 98 Oximetry (%) GENERAL: Awake, alert, and fully oriented, in no acute distress. HEAD: Normal with no signs of trauma. EYES: Pupils equal, round and reactive to light, extraocular movements intact, sclera anicteric, conjunctiva clear. No lid lag. EARS, NOSE, THROAT: Ears normal, nares patent, oropharynx clear without exudates. Moist mucous membranes. NECK: Normal range of motion, supple without lymphadenopathy, JVD, or masses. LUNGS: Breath sounds equal, clear to auscultation bilaterally. No wheezes, and no crackles. No accessory muscle use. HEART: Regular rate and rhythm, normal S1 and S2 without murmur, rub or gallop. ABDOMEN: Soft, nontender, not distended, normoactive bowel sounds, no guarding, no rebound, no masses. No hepatomegaly or splenomegaly. MUSCULOSKELETAL: Normal range of motion at all joints. No bony deformities or tenderness. No CVA tenderness. UPPER EXTREMITIES: 2+ pulses, warm, well-perfused. No cyanosis. No clubbing. Cap refill <2 seconds. No peripheral edema. LOWER EXTREMITIES: 2+ pulses, warm, well-perfused. No calf tenderness. No peripheral edema. NEUROLOGICAL: Cranial nerves II-XII intact. Normal speech. Normal gait. PSYCHIATRIC: Cooperative. Good eye contact. Appropriate mood and affect. SKIN: Warm, dry, normal turgor, no rashes or lesions noted. Laboratory Results - last 24 hr 03/18/17 03/18/17 03/18/17 18:30 18:30 18:30 WBC 7.1 D RBC 3.85 Hgb 12.7 Hct 38.2 MCV 99.4 H MCHC 33.2 RDW 15.5 Plt Count 216 D MPV 7.9 Neutrophils % 38.7 L D Lymphocytes % 51.8 H Monocytes % 7.2 Eosinophils % 1.8 Basophils % 0.5 INR 1.04 Sodium 141 Potassium 3.7 Chloride 107 Carbon Dioxide 26 Anion Gap 8 BUN 23 H D Creatinine 0.7 D Creat Clearance w eGFR > 60 Random Glucose 98 D Calcium 8.5 Magnesium Total Bilirubin 0.3 D AST 8 L D ALT 14 D Alkaline Phosphatase 42 L D Total Protein 6.4 Albumin 3.4 D 03/18/17 18:30 WBC RBC Hgb Hct MCV MCHC RDW Plt Count MPV Neutrophils % Lymphocytes % Monocytes % Eosinophils % Basophils % INR Sodium Potassium Chloride Carbon Dioxide Anion Gap BUN Creatinine Creat Clearance w eGFR Random Glucose Calcium Magnesium 2.2 Total Bilirubin AST ALT Alkaline Phosphatase Total Protein Albumin ASSESSMENT/PLAN: Dispo: We will continue to follow the patient. Thank you for this consultative opportunity. <Whitney Clinton - Last Filed: 03/18/17 21:38> Consultation: REQUESTING PROVIDER: CONSULT REQUEST: We have been asked to medically evaluate this patient for ( specify). HISTORY OF PRESENT ILLNESS: For parkinsons-like symptoms. Pt recently discharged from [facility] for admission of fall and dizziness. Has a PMHx significant for CVA, asthma, COPD, GERD, Hep C, cirrhosis, bipolar disorder, schizophrenia, anxiety disorder, seizure on depakote, and substance abuse. REVIEW OF SYSTEMS: CONSTITUTIONAL: Absent: fever, chills, diaphoresis, generalized weakness, malaise, loss of appetite, weight change HEENT: Absent: rhinorrhea, nasal congestion, throat pain, throat swelling, difficulty swallowing, mouth swelling, ear pain, eye pain, visual changes CARDIOVASCULAR: Absent: chest pain, syncope, palpitations, irregular heart rate, lightheadedness , peripheral edema RESPIRATORY: Absent: cough, shortness of breath, dyspnea with exertion, orthopnea, wheezing, stridor, hemoptysis GASTROINTESTINAL: Absent: abdominal pain, abdominal distension, nausea, vomiting, diarrhea, constipation, melena, hematochezia GENITOURINARY: Absent: dysuria, frequency, urgency, hesitancy, hematuria, flank pain, genital pain MUSCULOSKELETAL: Absent: myalgia, arthralgia, joint swelling, back pain, neck pain SKIN: Absent: rash, itching, pallor HEMATOLOGIC/IMMUNOLOGIC: Absent: easy bleeding, easy bruising, lymphadenopathy, frequent infections ENDOCRINE: Absent: unexplained weight gain, unexplained weight loss, heat intolerance, cold intolerance NEUROLOGIC: +unsteady gait, dizziness Absent: headache, focal weakness or paresthesias, seizure, mental status changes , bladder or bowel incontinence PSYCHIATRIC: Absent: anxiety, depression, suicidal or homicidal ideation, hallucinations. PHYSICAL EXAMINATION Vital Signs - 24 hr 03/18/17 03/18/17 17:45 21:34 Temperature 98.7 F Pulse Rate 68 Pulse Rate [ 61 Apical] Respiratory 18 18 Rate Blood Pressure 107/65 Blood Pressure 107/65 [Right Arm] O2 Sat by Pulse 99 98 Oximetry (%) GENERAL: Awake, alert, and fully oriented, in no acute distress. HEAD: Normal with no signs of trauma. EYES: Pupils equal, round and reactive to light, extraocular movements intact, sclera anicteric, conjunctiva clear. no nystagmus. No lid lag. EARS, NOSE, THROAT: Ears normal, nares patent, oropharynx clear without exudates. Moist mucous membranes. NECK: Normal range of motion, supple without lymphadenopathy, JVD, or masses. LUNGS: Breath sounds equal, clear to auscultation bilaterally. No wheezes, and no crackles. No accessory muscle use. HEART: Regular rate and rhythm, normal S1 and S2 without murmur, rub or gallop. ABDOMEN: Soft, nontender, not distended, normoactive bowel sounds, no guarding, no rebound, no masses. No hepatomegaly or splenomegaly. MUSCULOSKELETAL: Normal range of motion at all joints. No bony deformities or tenderness. No CVA tenderness. UPPER EXTREMITIES: 2+ pulses, warm, well-perfused. Slight intentional tremor in upper extremities. 5+ strength. No cyanosis. No clubbing. Cap refill <2 seconds. No peripheral edema. LOWER EXTREMITIES: 2+ pulses, warm, well-perfused. No calf tenderness. No peripheral edema. 5+ strength. NEUROLOGICAL: Cranial nerves II-XII intact. Normal speech. Ambulates with walker at baseline. Gait not observed as patient has complaints of dizziness. PSYCHIATRIC: Cooperative. Good eye contact. Appropriate mood and affect. SKIN: Warm, dry, normal turgor, no rashes or lesions noted. Laboratory Results - last 24 hr 03/18/17 03/18/17 03/18/17 18:30 18:30 18:30 WBC 7.1 D RBC 3.85 Hgb 12.7 Hct 38.2 MCV 99.4 H MCHC 33.2 RDW 15.5 Plt Count 216 D MPV 7.9 Neutrophils % 38.7 L D Lymphocytes % 51.8 H Monocytes % 7.2 Eosinophils % 1.8 Basophils % 0.5 INR 1.04 Sodium 141 Potassium 3.7 Chloride 107 Carbon Dioxide 26 Anion Gap 8 BUN 23 H D Creatinine 0.7 D Creat Clearance w eGFR > 60 Random Glucose 98 D Calcium 8.5 Magnesium Total Bilirubin 0.3 D AST 8 L D ALT 14 D Alkaline Phosphatase 42 L D Total Protein 6.4 Albumin 3.4 D 03/18/17 18:30 WBC RBC Hgb Hct MCV MCHC RDW Plt Count MPV Neutrophils % Lymphocytes % Monocytes % Eosinophils % Basophils % INR Sodium Potassium Chloride Carbon Dioxide Anion Gap BUN Creatinine Creat Clearance w eGFR Random Glucose Calcium Magnesium 2.2 Total Bilirubin AST ALT Alkaline Phosphatase Total Protein Albumin Active Medications Generic Name Dose Route Start Last Admin Trade Name Freq PRN Reason Stop Dose Admin Sodium Chloride 1,000 mls @ 1,000 mls/hr 03/18/17 22:20 03/18/17 22:30 Normal Saline - IV 03/18/17 23:19 1,000 mls/hr ASDIR STA Administration ASSESSMENT/PLAN: Dizziness and gait disturbance r/o orthostatic hypotension most likely secondary to medication. Pt on high dose of depakote consider reducing dosage as tolerated. Pts symptoms are chronic and [facility] contacted and spoke with Dr. Mora in regards to pts previous admission and confirmed that patient had symptoms at [facility] and was evaluated and treated and discharged to senior living for intermodal customer service care. No recommendation for inpatient treatment at this time. Pt can continue care and evaluation as outpatient with recommendations to follow up with neurologist as outpatient. Pt would benefit from IV hydration and can be discharged. In addition to our previous documentation, Dr. Mora noted patient has past h/o of CVA. Documentation is prepared by Savannah Valencia acting as biomedical repair technician for Whitney Clinton M.D. <Savannah Valencia - Last Filed: 03/18/17 22:36>
--- NOTE | 2017-03-18 21:38 | PDOC ---
*Physical Exam - Vital Signs Last Vital Signs Temp Pulse Resp BP Pulse Ox 98.7 F 68 18 107/65 99 03/18/17 17:45 03/18/17 17:45 03/18/17 17:45 03/18/17 17:45 03/18/17 17:45 ED Treatment Course - LABORATORY CBC & Chemistry Diagram: 03/18/17 18:30 03/18/17 18:30 - ADDITIONAL ORDERS Additional order review: Laboratory Results 03/18/17 03/18/17 03/18/17 18:30 18:30 18:30 INR 1.04 Sodium 141 Potassium 3.7 Chloride 107 Carbon Dioxide 26 Anion Gap 8 BUN 23 H D Creatinine 0.7 D Creat Clearance w eGFR > 60 Random Glucose 98 D Calcium 8.5 Magnesium 2.2 Total Bilirubin 0.3 D AST 8 L D ALT 14 D Alkaline Phosphatase 42 L D Total Protein 6.4 Albumin 3.4 D 03/18/17 18:30 RBC 3.85 MCV 99.4 H MCHC 33.2 RDW 15.5 MPV 7.9 Neutrophils % 38.7 L D Lymphocytes % 51.8 H Monocytes % 7.2 Eosinophils % 1.8 Basophils % 0.5 - Medications Given in the ED: ED Medications Discontinued Medications Generic Name Dose Route Start Last Admin Trade Name Freq PRN Reason Stop Dose Admin Sodium Chloride 1,000 mls @ 1,000 mls/hr 03/18/17 18:38 03/18/17 19:24 Normal Saline - IV 03/18/17 19:37 1,000 mls/hr .Q1H ONE Administration Meclizine HCl 25 mg 03/18/17 18:38 03/18/17 19:20 Antivert - PO 03/18/17 18:39 25 mg ONCE ONE Administration Medical Decision Making - Medical Decision Making 03/18/17 21:35 Hospitalist spoke to the hospitalist at [facility] were pt was recently admitted for several days. Pt was shaky and had unsteady gait All studies stable including Ct scan of brain. No acute pathology seen. Pt to return to [facility]. 03/18/17 23:29 Unable to get transportation at this time. Will attempt in the morning. Pt hemodynamically stable. *DC/Admit/Observation/Transfer Diagnosis at time of Disposition: Shakiness - Discharge Dispostion Disposition: HOME Condition at time of disposition: Stable Admit: No - Referrals Referrals: Michell Garrido MD [Primary Care Provider] - - Patient Instructions - Post Discharge Activity
[2017-03-18] MEDS ORDERED: SODIUM CHLORIDE 1,000 ML IV STA (22:20)
[2017-03-18] MEDS ORDERED: METOCLOPRAMIDE HCL INJECTION 10 MG/2 ML VIAL IVPUSH ONE (22:29)
[2017-03-18] MEDS ORDERED: METOCLOPRAMIDE HCL INJECTION 10 MG/2 ML VIAL ONE (22:35)
[2017-03-19 09:40] VITALS: TEMP 97.5
--- NOTE | 2017-03-19 10:02 | EKG ---
Test Reason : Blood Pressure : / mmHG Vent. Rate : 067 BPM Atrial Rate : 067 BPM P-R Int : 000 ms QRS Dur : 070 ms QT Int : 414 ms P-R-T Axes : -11 050 032 degrees QTc Int : 437 ms NORMAL SINUS RHYTHM LOW VOLTAGE QRS NONSPECIFIC ST ABNORMALITY WHEN COMPARED WITH ECG OF 23-JAN-2017 10:13, NO SIGNIFICANT CHANGE WAS FOUND Confirmed by SHELLEY JARA MD ([id number]) on 03/19/2017 10:02:14 AM Referred By: Confirmed By:SHELLEY JARA MD
[2017-03-19 13:33] VITALS: BP 123/75; PULSE 76
== END 2017-03-19 13:34 | disposition home or self-care (01) ==
LOC: JER 17:11
PROC: 3E033GC Introduction of Other Therapeutic Substance into Peripheral Vein, Percutaneous Approach (ICD-10-PCS; principal; 2017-03-18)
PROC: 3E0337Z Introduction of Electrolytic and Water Balance Substance into Peripheral Vein, Percutaneous Approach (ICD-10-PCS; 2017-03-18)
DX: R25.1 Tremor, unspecified (principal); J44.9 Chronic obstructive pulmonary disease, unspecified; K21.9 Gastro-esophageal reflux disease without esophagitis; F31.9 Bipolar disorder, unspecified; F20.9 Schizophrenia, unspecified; F41.9 Anxiety disorder, unspecified
CPT/HCPCS: 36415; 70450-TC; 71010-TC; 80053; 83735; 85025; 85610; 93005; 93010; 99284-25

== ENCOUNTER 2017-05-21 15:11 | Emergency (ER) | payer OTHER ==
[2017-05-21 15:32] VITALS: TEMP 98.7; BMI 31.7
--- NOTE | 2017-05-21 17:20 | PDOC ---
History of Present Illness - General Chief Complaint: Chest Pain Stated Complaint: Seizure Time Seen by Provider: 05/21/17 15:15 - History of Present Illness Initial Comments: The patient is a 51 year old female with a significant past medical history of asthma, COPD, Hep C with liver cirrhosis, bipolar, anxiety, schizophrenia, seizure disorder, and history of pseudoseizures presenting from [facility] to the Emergency Department for an episode of shaking in her room. According to EMS her roommate witnessed an episode of shaking that last 4 minutes while on her bed during which she was unresponsive. EMS arrived on the scene and did not notice a post-ictal period. While being transported on the stretcher, the patient was noticed to have another episode of shaking that lasted 2 minutes during which she was unresponsive. She did not lose bowel or bladder control during either of the episodes and EMS did lift her hand in front of her face during which she adjusted her hand to avoid dropping on her face. Upon presenting to the ED she was AOx3 and not post ictal. She is complaining of chest pain and some difficulty breathing as well. Denies headache , nausea, vomiting, diarrhea, constipation, or other symptoms. 05/21/17 17:21 Past History - Past Medical History Allergies/Adverse Reactions: Allergies Allergy/AdvReac Type Severity Reaction Status Date / Time Penicillins Allergy Severe Rash Verified 01/23/17 09:34 Sulfa (Sulfonamide Allergy Severe Rash Verified 01/23/17 09:34 Antibiotics) azithromycin [From Zithromax] Allergy Verified 01/23/17 09:34 codeine Allergy Hives Verified 01/23/17 09:34 erythromycin base Allergy Verified 01/23/17 09:34 haloperidol [From Haldol] Allergy Swelling Verified 01/23/17 09:34 iodine Allergy Verified 01/23/17 09:34 iron Allergy Verified 01/23/17 09:34 lactase [From Dairy Aid] Allergy Verified 01/23/17 09:34 latex Allergy Hives Verified 01/23/17 09:34 ondansetron HCl Allergy Verified 01/23/17 09:34 [From Zofran (as hydrochloride)] phenobarbital Allergy Verified 01/23/17 09:34 Pork/Porcine Containing Allergy Verified 01/23/17 09:34 Products shellfish derived Allergy Difficulty Verified 01/23/17 09:34 Breathing tetracycline Allergy Verified 01/23/17 09:34 Home Medications: Ambulatory Orders Albuterol Sulfate Inhaler - [Ventolin HFA Inhaler -] 2 inh PO Q6H 12/25/16 Aspirin [Aspirin EC] 81 mg PO DAILY 12/25/16 Bisacodyl [Bisacodyl -] 5 mg PO DAILY PRN 12/25/16 Pantoprazole Sodium [Protonix] 40 mg PO DAILY 12/25/16 Topiramate [Topamax -] 100 mg PO DAILY 12/25/16 Albuterol Sulfate [Proair Respiclick] 90 mcg IH DAILY 12/29/16 Budesonide/Formeterol Fumarate [SYMBICORT 80/4.5mcg -] 1 inh PO BID 12/29/16 Citalopram Hydrobromide [Celexa -] 20 mg PO DAILY 12/29/16 Lacosamide [Vimpat -] 100 mg PO BID 12/29/16 Tiotropium [place] [Spiriva] 1 inh PO DAILY 12/29/16 Divalproex Sodium [Depakote] 1,000 mg PO BID 01/25/17 Meclizine HCl 25 mg PO TID #30 tablet 03/18/17 Anemia: No Asthma: Yes Cancer: No Cardiac Disorders: No CVA: No COPD: Yes CHF: No Dementia: No Diabetes: No GI Disorders: Yes (ACID REFLUX,HEP C) Disorders: No HTN: No Hypercholesterolemia: No Kidney Stones: No Liver Disease: Yes (cirrhosis, Hep C) Psychiatric Problems: Yes (bipolar, anxiety) Suicide Attempt (Hx): Yes (PT DO,'T WANT TO ANSWER THIS QUESTION.) Seizures: Yes Thyroid Disease: No - Surgical History Abdominal Surgery: No Appendectomy: No Cardiac Surgery: No Cholecystectomy: Yes Lung Surgery: No Neurologic Surgery: No Orthopedic Surgery: No - Reproductive History PID: No - Immunization History Immunization Up to Date: Yes - Psycho/Social/Smoking Cessation Hx Anxiety: No Suicidal Ideation: No Smoking History: Never smoked Have you smoked in the past 12 months: Yes Number of Cigarettes Smoked Daily: 3 Information on smoking cessation initiated: No 'Breaking Loose' booklet given: 10/26/16 Hx Alcohol Use: Yes Drug/Substance Use Hx: Yes Substance Use Type: Cocaine, Opiates Hx Substance Use Treatment: Yes (completed this program in 2005.) Review of Systems - Review of Systems Constitutional: Yes: Loss of Appetite. No: Chills, Diaphoresis, Fever HEENTM: No: Eye Pain, Blurred Vision Respiratory: Yes: Shortness of Breath. No: Cough Cardiac (ROS): Yes: Chest Pain. No: Edema, Lightheadedness, Palpitations ABD/GI: No: Abdominal Distended, Constipated, Diarrhea, Nausea, Vomiting : No: Burning, Dysuria, Frequency Musculoskeletal: No: Back Pain Integumentary: No: Change in Color, Dryness, Erythema Neurological: Yes: Seizure. No: Headache, Numbness *Physical Exam - Vital Signs Last Vital Signs Temp Pulse Resp BP Pulse Ox 98.7 F 65 20 120/67 99 05/21/17 15:24 05/21/17 15:24 05/21/17 15:24 05/21/17 15:24 05/21/17 15:27 - Physical Exam General Appearance: Yes: Nourished, Appropriately Dressed. No: Apparent Distress HEENT: positive: EOMI, SELWYN (Pupils slightly enlarged but round, equal, anr reactive.), Normal Voice Respiratory/Chest: positive: Crackles, Rales. negative: Chest Tender, Lungs Clear, Normal Breath Sounds, Respiratory Distress, Accessory Muscle Use Cardiovascular: positive: Regular Rhythm, Regular Rate, S1, S2. negative: Edema , JVD, Bradycardia, Tachycardia Gastrointestinal/Abdominal: positive: Normal Bowel Sounds, Flat, Soft. negative : Tender, Organomegaly Musculoskeletal: positive: Other (Prosthetic left arm). negative: Normal Inspection Integumentary: positive: Normal Color, Dry, Warm Neurologic: positive: Alert ED Treatment Course - LABORATORY CBC & Chemistry Diagram: 05/21/17 17:30 05/21/17 16:50 Medical Decision Making - Medical Decision Making 52 year old Female with PMH of seizures and psuedoseizure presenting with an episode of shaking most concerning for psuedoseizure given lack of bowel/ bladder incontinence , lack of post-ictal period, and lack of tongue trauma or other MSK trauma. 05/21/17 18:39 05/21/17 18:55 I spoke to her neurologist Dr. Dean at 18:55 and he recommended giving her 250 of Depakote and sending her home with follow up on Wednesday. Patient was signed out to Dr. Bedolla at 19:08. 05/21/17 19:02 *DC/Admit/Observation/Transfer Diagnosis at time of Disposition: Shakiness - Discharge Dispostion Disposition: HOME Condition at time of disposition: Improved Admit: No - Referrals Referrals: Michell Garrido MD [Primary Care Provider] - - Attestations Physician Attestion: I, Dr. Dhruv Solorio, attest that this document has been prepared under my direction and personally reviewed by me in its entirety. I further attest, that it accurately reflects all work, treatment, procedures and medical decision -making performed by me. 05/21/17 19:04 05/21/17 19:07
--- NOTE | 2017-05-21 17:21 | PDOC ---
Attending Attestation - Resident Resident Name: Dhruv Solorio - ED Attending Attestation I have performed the following: I have examined & evaluated the patient, The case was reviewed & discussed with the resident, I agree w/resident's findings & plan, Exceptions are as noted - HPI HPI: 05/21/17 17:15 52 year old female with past medical history of asthma, COPD, hepatitics C with liver cirrhosis, bipolar, anxiety, schizophrenia, seizure disorder presents from halfway for seizure episode today. The patient reports 2 days of greenish productive cough but no fevers. Reports positive sick contacts. Denies difficulty breathing. Has been reporting several seconds of interventional chest pain but not exertional. Today, patient reports that she had one episode of grand mal seizure that resolved. However, patient has no postictal period at this time. Came into the ED for further evaluation. The patient has had multiple pseudoseizures prior in the past. According to EMS , they had witnessed one and noted no postictal period. - Physicial Exam PE: 05/21/17 17:16 GENERAL: Awake, alert, and fully oriented, in no acute distress. HEAD: No signs of trauma EYES: PERRLA, EOMI, sclera anicteric, conjunctiva clear ENT: Auricles normal inspection, hearing grossly normal, nares patent, oropharynx clear without exudates. NECK: Normal ROM, supple, no lymphadenopathy, JVD, or masses LUNGS: Breath sounds equal, clear to auscultation bilaterally. No wheezes, and no crackles HEART: Regular rate and rhythm, normal S1 and S2, no murmurs, rubs or gallops ABDOMEN: Soft, nontender, normoactive bowel sounds. No guarding, no rebound. No masses EXTREMITIES: Normal range of motion, no edema. No clubbing or cyanosis. No cords, erythema, or tenderness NEUROLOGICAL: Cranial nerves II through XII grossly intact. Normal speech, normal gait SKIN: Warm, Dry, normal turgor, no rashes or lesions noted. - Medical Decision Making 05/21/17 17:19 Vital Signs Temp Pulse Resp BP Pulse Ox 98.7 F 65 20 120/67 99 05/21/17 15:24 05/21/17 15:24 05/21/17 15:24 05/21/17 15:24 05/21/17 15:27 We'll check blood for electrolyte disorders. Patient reports adherence to her medications. We'll obtain a CT levels. She reports that she's taken Dilantin and Topamax. Patient's chest pain is atypical for acute coronary syndrome. However, patient is not wheezing but we'll rule out pneumonia given the cough. Unclear if the patient truly had a seizure. May have potentially been a psychogenic seizure. We'll touch base with a neurologist regarding once results return. If workup is unremarkable, we'll have the patient follow-up as an outpatient. 05/21/17 18:49 Chest xray reviewed by me, pending official radiology read. No infiltrates. Heart Score/ECG Review - History History: Slightly suspicious - Electrocardiogram EKG: Normal - Age Age: 45-65 - Risk Factors Risk Factors Heart Score: Yes Hx Obesity Based on the list above the patient has:: 1-2 risk factors #1 ECG reviewed & interpreted by me at: 15:30 05/21/17 17:26 NSR 60, no std/marc, T wave flat III, normal axis, normal intervals, QTC 452 msec
[2017-05-21] MEDS ORDERED: SODIUM CHLORIDE 1,000 ML IV STA (17:54)
[2017-05-21] MEDS ORDERED: IBUPROFEN 600 MG TABLET (FP) PO ONE ×2 (18:02→18:24)
[2017-05-21 18:15] LABS: BASOPHIL 0.5 % (0-2.0); EOSINOPHIL 0.5 % (0-4.5); MCH 33.1 pg (25.7-33.7); MCHC 33.8 g/dl (32.0-36.0); MEAN CELL VOLUME 97.8 fl (80-96); MEAN PLT VOLUME 9.2 fl (7.5-11.1); NEUTROPHILS 46.6 % (42.8-82.8); PLATELET COUNT 164 K/MM3 (134-434); RDW 12.8 % (11.6-15.6); WHITE BLOOD COUNT 9.1 K/mm3 (4.0-10.0)
[2017-05-21 18:47] LABS: URINE APPEARANCE SLCLOUDY; URINE BILIRUBIN NEGATIVE (NEGATIVE); URINE BLOOD NEGATIVE (NEGATIVE); URINE COLOR YELLOW; URINE GLUCOSE (UA) NEGATIVE (NEGATIVE); URINE KETONE TRACE (NEGATIVE); URINE NITRITE NEGATIVE (NEGATIVE); URINE PROTEIN NEGATIVE (NEGATIVE); URINE UROBILINOGEN NEGATIVE mg/dL (0.2-1.0)
[2017-05-21 18:50] LABS: URINE LEUK ESTERASE 1+ (NEGATIVE)
[2017-05-21 18:51] LABS: URINE BACTERIA RARE /hpf (NONE SEEN); URINE MUCUS FEW; URINE RBC 2 /hpf (0-3); URINE WBC 10 /hpf (3-5)
[2017-05-21] MEDS ORDERED: DIVALPROEX SODIUM 250 MG TABLET E.C. (FP) PO ONE (19:04)
[2017-05-21 19:26] LABS: ANION GAP 5 (8-16); BILIRUBIN,TOTAL 0.2 mg/dL (0.2-1.0); CALCIUM 8.1 mg/dL (8.5-10.1); CO2 27 mmol/L (21-32); CREATININE 0.5 mg/dL (0.55-1.02); GLUCOSE,RANDOM 118 mg/dL (74-106); MAGNESIUM 2.1 mg/dL (1.8-2.4); SGOT/AST 6 U/L (15-37); SGPT/ALT 13 U/L (12-78); TOT PROT 5.7 g/dl (6.4-8.2)
[2017-05-21] MEDS ORDERED: DIVALPROEX SODIUM 125 MG TABLET E.C. (FP) ONE (19:27)
[2017-05-21 19:28] LABS: ALK PHOS 36 U/L (45-117); CPK 55 IU/L (26-192); TROPONIN I 0.05 ng/ml (0.00-0.05)
[2017-05-21 19:45] VITALS: BP 91/47; PULSE 62
--- NOTE | 2017-05-21 20:24 | PDOC ---
*Physical Exam - Vital Signs Last Vital Signs Temp Pulse Resp BP Pulse Ox 98.7 F 62 16 91/47 98 05/21/17 15:24 05/21/17 19:43 05/21/17 19:43 05/21/17 19:43 05/21/17 19:43 ED Treatment Course - LABORATORY CBC & Chemistry Diagram: 05/21/17 17:30 05/21/17 18:50 - ADDITIONAL ORDERS Additional order review: Laboratory Results 05/21/17 05/21/17 05/21/17 18:50 18:10 17:56 Sodium 144 Potassium 4.0 Chloride 112 H Carbon Dioxide 27 Anion Gap 5 L BUN 18 D Creatinine 0.5 L D Creat Clearance w eGFR > 60 Random Glucose 118 H D Calcium 8.1 L Magnesium 2.1 Total Bilirubin 0.2 D AST 6 L D ALT 13 Alkaline Phosphatase 36 L Creatine Kinase 55 Troponin I 0.05 Total Protein 5.7 L Albumin 3.0 L Urine Color Yellow Urine Appearance Slcloudy Urine pH 6.0 Ur Specific [place] 1.025 Urine Protein Negative Urine Glucose (UA) Negative Urine Ketones Trace H Urine Blood Negative Urine Nitrite Negative Urine Bilirubin Negative Urine Urobilinogen Negative Ur Leukocyte Esterase 1+ H Urine RBC 2 Urine WBC 10 Ur Epithelial Cells Few Urine Bacteria Rare Urine Mucus Few Valproic Acid 58.789 05/21/17 05/21/17 17:53 16:50 Sodium Cancelled Cancelled Potassium Cancelled Cancelled Chloride Cancelled Cancelled Carbon Dioxide Cancelled Cancelled Anion Gap Cancelled Cancelled BUN Cancelled Cancelled Creatinine Cancelled Cancelled Creat Clearance w eGFR Cancelled Cancelled Random Glucose Cancelled Cancelled Calcium Cancelled Cancelled Magnesium Cancelled Total Bilirubin Cancelled Cancelled AST Cancelled Cancelled ALT Cancelled Cancelled Alkaline Phosphatase Cancelled Cancelled Creatine Kinase Cancelled Cancelled Troponin I Cancelled Cancelled Total Protein Cancelled Cancelled Albumin Cancelled Cancelled Urine Color Urine Appearance Urine pH Ur Specific [place] Urine Protein Urine Glucose (UA) Urine Ketones Urine Blood Urine Nitrite Urine Bilirubin Urine Urobilinogen Ur Leukocyte Esterase Urine RBC Urine WBC Ur Epithelial Cells Urine Bacteria Urine Mucus Valproic Acid 05/21/17 05/21/17 17:30 16:50 RBC 4.06 Cancelled MCV 97.8 H Cancelled MCHC 33.8 Cancelled RDW 12.8 D Cancelled MPV 9.2 D Cancelled Neutrophils % 46.6 D Cancelled Lymphocytes % 45.1 H Cancelled Monocytes % 7.3 Cancelled Eosinophils % 0.5 Cancelled Basophils % 0.5 Cancelled - Medications Given in the ED: ED Medications Discontinued Medications Generic Name Dose Route Start Last Admin Trade Name Abi PRN Reason Stop Dose Admin Divalproex Sodium 250 mg 05/21/17 19:04 05/21/17 19:36 Depakote - PO 05/21/17 19:05 250 mg ONCE ONE Administration Sodium Chloride 1,000 mls @ 1,000 mls/hr 05/21/17 17:54 05/21/17 17:59 Normal Saline - IV 05/21/17 18:53 1,000 mls/hr ASDIR STA Administration Ibuprofen 600 mg 05/21/17 18:02 05/21/17 18:25 Motrin - PO 05/21/17 18:03 600 mg ONCE ONE Administration Medical Decision Making - Medical Decision Making 05/21/17 20:24 The patient was signed out to me by the day team, Dr. Solorio. Pending CMP. 05/21/17 22:48 CXR negative. Patient is comfortable for d/c. Will put in d/c. *DC/Admit/Observation/Transfer Diagnosis at time of Disposition: Shakiness - Discharge Dispostion Disposition: HOME Condition at time of disposition: Improved - Referrals Referrals: Michell Garrido MD [Primary Care Provider] - - Patient Instructions Printed Discharge Instructions: Seizure Disorder -- Adult, DI for Seizure Disorder -- Adult - Post Discharge Activity - Attestations Physician Attestion: 05/21/17 22:49 I, Dr. Mario Bedolla, attest that this document has been prepared under my direction and personally reviewed by me in its entirety. I further attest, that it accurately reflects all work, treatment, procedures and medical decision -making performed by me.
--- NOTE | 2017-05-27 14:57 | EKG ---
Test Reason : Blood Pressure : / mmHG Vent. Rate : 060 BPM Atrial Rate : 060 BPM P-R Int : 166 ms QRS Dur : 076 ms QT Int : 452 ms P-R-T Axes : 054 073 047 degrees QTc Int : 452 ms NORMAL SINUS RHYTHM NORMAL ECG WHEN COMPARED WITH ECG OF 18-MAR-2017 17:28, NO SIGNIFICANT CHANGE WAS FOUND Confirmed by RICHY SOUTH MD ([id number]) on 05/27/2017 2:57:01 PM Referred By: Confirmed By:RICHY SOUTH MD
== END 2017-05-21 23:59 | disposition home or self-care (01) ==
LOC: JER 15:11
PROC: 3E0337Z Introduction of Electrolytic and Water Balance Substance into Peripheral Vein, Percutaneous Approach (ICD-10-PCS; principal; 2017-05-21)
DX: R25.1 Tremor, unspecified (principal); J45.909 Unspecified asthma, uncomplicated; J44.9 Chronic obstructive pulmonary disease, unspecified; K21.9 Gastro-esophageal reflux disease without esophagitis; K74.60 Unspecified cirrhosis of liver; Z87.891 Personal history of nicotine dependence; F31.9 Bipolar disorder, unspecified; F41.9 Anxiety disorder, unspecified
CPT/HCPCS: 36415; 71010-TC; 80053; 80164; 80201; 81003; 81015; 83735; 84484; 85025; 87086; 93005; 93010; 99285-25

== ENCOUNTER 2017-05-28 23:08 | Inpatient (IN) | payer OTHER ==
[2017-05-28 23:35] VITALS: BMI 31.7
[2017-05-28] MEDS ORDERED: SODIUM CHLORIDE 1,000 ML IV STA (23:48)
[2017-05-28] MEDS ORDERED: FAMOTIDINE 20 MG/50 ML IVPB 50 ML IVPB ONE ×2 (23:48→23:53)
[2017-05-28] MEDS ORDERED: ACETAMINOPHEN 1000 MG/100 ML VIAL (NON FORMULARY) IVPB ONE (23:48)
[2017-05-28] MEDS ORDERED: ACETAMINOPHEN INJECTION 100 ML IVPB ONE (23:53)
[2017-05-29 00:07] LABS: MCH 33.5 pg (25.7-33.7); MCHC 34.3 g/dl (32.0-36.0); MEAN CELL VOLUME 97.6 fl (80-96); MEAN PLT VOLUME 9.7 fl (7.5-11.1); PLATELET COUNT 137 K/MM3 (134-434); RDW 12.9 % (11.6-15.6); WHITE BLOOD COUNT 7.7 K/mm3 (4.0-10.0)
[2017-05-29 00:33] LABS: ALBUMIN 3.3 g/dl (3.4-5.0); ANION GAP 8 (8-16); BILIRUBIN,TOTAL 0.5 mg/dL (0.2-1.0); CALCIUM 8.3 mg/dL (8.5-10.1); CO2 29 mmol/L (21-32); CREATININE 0.7 mg/dL (0.55-1.02); GLUCOSE,RANDOM 94 mg/dL (74-106); SGPT/ALT 16 U/L (12-78)
[2017-05-29 00:36] LABS: ALK PHOS 41 U/L (45-117); TROPONIN I 0.07 ng/ml (0.00-0.05)
[2017-05-29 00:42] LABS: MAGNESIUM 2.4 mg/dL (1.8-2.4)
[2017-05-29 00:44] LABS: CPK 462 IU/L (26-192); SGOT/AST 22 U/L (15-37)
[2017-05-29] MEDS ORDERED: ASPIRIN 81 MG CHEWABLE TABLETS PO ONE (01:24)
[2017-05-29] MEDS ORDERED: ASPIRIN 81 MG CHEWABLE TABLETS ONE (01:27)
--- NOTE | 2017-05-29 01:32 | PDOC ---
History of Present Illness - General History Source: Patient, Old Records Exam Limitations: No Limitations <Cyrus Reeves - Last Filed: 05/29/17 01:25> - General History Source: Patient Exam Limitations: No Limitations - History of Present Illness Initial Comments: Patient is a 52 year old female with a medical history significant for asthma, COPD, Hep C with liver cirrhosis, bipolar, anxiety, schizophrenia, seizure disorder, and history of pseudoseizures presenting from [place] to the Emergency Department with complaints of abdominal pains in LUQ and epigastric pain. She reports vomiting(after her meals). She also endorses chills, and productive cough with brown sputum but denies subjective fevers. The patient denies chest pain and palpitations. The patient also endorses associated constipation. The patient denies dysuria, hematuria, urgency and frequency. <Melvin England - Last Filed: 05/29/17 01:59> - General Chief Complaint: Pain, Acute Stated Complaint: ABD PAIN Time Seen by Provider: 05/28/17 23:20 Past History - Past Medical History Anemia: No Asthma: Yes Cancer: No Cardiac Disorders: No CVA: No COPD: Yes CHF: No Dementia: No Diabetes: No GI Disorders: Yes (ACID REFLUX,HEP C) Disorders: No HTN: No Hypercholesterolemia: No Kidney Stones: No Liver Disease: Yes (cirrhosis, Hep C) Psychiatric Problems: Yes (bipolar, anxiety) Suicide Attempt (Hx): Yes (PT DO,'T WANT TO ANSWER THIS QUESTION.) Seizures: Yes Thyroid Disease: No - Surgical History Abdominal Surgery: No Appendectomy: No Cardiac Surgery: No Cholecystectomy: Yes Lung Surgery: No Neurologic Surgery: No Orthopedic Surgery: No - Reproductive History PID: No - Immunization History Immunization Up to Date: Yes - Psycho/Social/Smoking Cessation Hx Anxiety: No Suicidal Ideation: No Smoking History: Former smoker Have you smoked in the past 12 months: No Number of Cigarettes Smoked Daily: 3 Information on smoking cessation initiated: No 'Breaking Loose' booklet given: 10/26/16 Hx Alcohol Use: No Drug/Substance Use Hx: No Substance Use Type: Cocaine, Opiates Hx Substance Use Treatment: Yes (completed this program in 2005.) <Cyrus Reeves - Last Filed: 05/29/17 01:25> <Melvin England - Last Filed: 05/29/17 01:59> - Past Medical History Allergies/Adverse Reactions: Allergies Allergy/AdvReac Type Severity Reaction Status Date / Time Penicillins Allergy Severe Rash Verified 01/23/17 09:34 Sulfa (Sulfonamide Allergy Severe Rash Verified 01/23/17 09:34 Antibiotics) azithromycin [From Zithromax] Allergy Verified 01/23/17 09:34 codeine Allergy Hives Verified 01/23/17 09:34 erythromycin base Allergy Verified 01/23/17 09:34 haloperidol [From Haldol] Allergy Swelling Verified 01/23/17 09:34 iodine Allergy Verified 01/23/17 09:34 iron Allergy Verified 01/23/17 09:34 lactase [From Dairy Aid] Allergy Verified 01/23/17 09:34 latex Allergy Hives Verified 01/23/17 09:34 ondansetron HCl Allergy Verified 01/23/17 09:34 [From Zofran (as hydrochloride)] phenobarbital Allergy Verified 01/23/17 09:34 Pork/Porcine Containing Allergy Verified 01/23/17 09:34 Products shellfish derived Allergy Difficulty Verified 01/23/17 09:34 Breathing tetracycline Allergy Verified 01/23/17 09:34 Home Medications: Ambulatory Orders Albuterol Sulfate Inhaler - [Ventolin HFA Inhaler -] 2 inh PO Q6H 12/25/16 Aspirin [Aspirin EC] 81 mg PO DAILY 12/25/16 Bisacodyl [Bisacodyl -] 5 mg PO DAILY PRN 12/25/16 Pantoprazole Sodium [Protonix] 40 mg PO DAILY 12/25/16 Topiramate [Topamax -] 100 mg PO DAILY 12/25/16 Albuterol Sulfate [Proair Respiclick] 90 mcg IH DAILY 12/29/16 Budesonide/Formeterol Fumarate [SYMBICORT 80/4.5mcg -] 1 inh PO BID 12/29/16 Citalopram Hydrobromide [Celexa -] 20 mg PO DAILY 12/29/16 Lacosamide [Vimpat -] 100 mg PO BID 12/29/16 Tiotropium [place] [Spiriva] 1 inh PO DAILY 12/29/16 Divalproex Sodium [Depakote] 1,000 mg PO BID 01/25/17 Meclizine HCl 25 mg PO TID #30 tablet 03/18/17 Review of Systems - Review of Systems Able to Perform ROS?: Yes Comments:: GENERAL/CONSTITUTIONAL: No fever or chills. No weakness. HEAD, EYES, EARS, NOSE AND THROAT: + Dizziness No change in vision. No ear pain or discharge. No sore throat. CARDIOVASCULAR: No chest pain or shortness of breath. RESPIRATORY: No cough, wheezing, or hemoptysis. GASTROINTESTINAL: +Vomiting. + Nausea. + Constipation. No diarrhea GENITOURINARY: No dysuria, frequency, or change in urination. MUSCULOSKELETAL: + Abdominal pain No joint or muscle swelling. No neck or back pain. SKIN: No rash NEUROLOGIC: + Unsteady gait. No headache, vertigo, loss of consciousness, or change in strength/sensation. ENDOCRINE: No increased thirst. No abnormal weight change. HEMATOLOGIC/LYMPHATIC: No anemia, easy bleeding, or history of blood clots. ALLERGIC/IMMUNOLOGIC: No hives or skin allergy. <Melvin England - Last Filed: 05/29/17 01:59> *Physical Exam - Vital Signs Last Vital Signs Temp Pulse Resp BP Pulse Ox 98.3 F 67 20 110/69 94 L 05/28/17 23:33 05/28/17 23:33 05/28/17 23:33 05/28/17 23:33 05/28/17 23:33 <Cyrus Reeves - Last Filed: 05/29/17 01:25> - Vital Signs Last Vital Signs Temp Pulse Resp BP Pulse Ox 98.3 F 67 20 110/69 94 L 05/28/17 23:33 05/28/17 23:33 05/28/17 23:33 05/28/17 23:33 05/28/17 23:33 - Physical Exam Comments: GENERAL: Awake, alert, and fully oriented, in no acute distress HEAD: No signs of trauma EYES: PERRLA, EOMI, sclera anicteric, conjunctiva clear ENT: Auricles normal inspection, hearing grossly normal, nares patent, oropharynx clear without exudates. Moist mucosa NECK: Normal ROM, supple, no lymphadenopathy, JVD, or masses LUNGS: Breath sounds equal, clear to auscultation bilaterally. No wheezes, and no crackles HEART: Regular rate and rhythm, normal S1 and S2, no murmurs, rubs or gallops ABDOMEN: LUQ Pain. epigastric tenderness to palpation. Soft, normoactive bowel sounds. No guarding, no rebound. No masses EXTREMITIES: Normal range of motion, no edema. No clubbing or cyanosis. No cords, erythema, or tenderness NEUROLOGICAL: Cranial nerves II through XII grossly intact. Normal speech, normal gait SKIN: Warm, Dry, normal turgor, no rashes or lesions noted. <Melvin England - Last Filed: 05/29/17 01:59> ED Treatment Course - LABORATORY CBC & Chemistry Diagram: 05/28/17 23:50 05/28/17 23:50 - ADDITIONAL ORDERS Additional order review: Laboratory Results 05/28/17 05/28/17 23:50 23:50 Sodium 142 Potassium 4.0 Chloride 105 Carbon Dioxide 29 Anion Gap 8 BUN 18 Creatinine 0.7 D Creat Clearance w eGFR > 60 Random Glucose 94 D Calcium 8.3 L Magnesium 2.4 Total Bilirubin 0.5 D AST 22 D ALT 16 D Alkaline Phosphatase 41 L Creatine Kinase 462 H Creatine Kinase Index 0.6 CK-MB (CK-2) 3.031 Troponin I 0.07 H Total Protein 6.0 L Albumin 3.3 L Lipase 98 05/28/17 23:50 RBC 4.02 MCV 97.6 H MCHC 34.3 RDW 12.9 MPV 9.7 Neutrophils % Y Lymphocytes % Y - RADIOLOGY Radiology Studies Ordered: Category Date Time Status CHEST X-RAY PORTABLE* [RAD] Stat Radiology 05/28/17 23:48 Taken - Medications Given in the ED: ED Medications Discontinued Medications Generic Name Dose Route Start Last Admin Trade Name Abi PRN Reason Stop Dose Admin Acetaminophen 1,000 mg 05/28/17 23:48 05/29/17 00:08 Ofirmev Injection - IVPB 05/28/17 23:49 1,000 mg ONCE ONE Administration Famotidine/Sodium Chloride 50 mls @ 100 mls/hr 05/28/17 23:48 05/29/17 00:08 Pepcid 20 Mg Premixed Ivpb - IVPB 05/29/17 00:17 100 mls/hr ONCE ONE Administration Sodium Chloride 1,000 mls @ 1,000 mls/hr 05/28/17 23:48 05/29/17 00:08 Normal Saline - IV 05/29/17 00:47 1,000 mls/hr ASDIR STA Administration <LalaCyrus - Last Filed: 05/29/17 01:25> - LABORATORY CBC & Chemistry Diagram: 05/28/17 23:50 05/28/17 23:50 - ADDITIONAL ORDERS Additional order review: Laboratory Results 05/28/17 05/28/17 23:50 23:50 Sodium 142 Potassium 4.0 Chloride 105 Carbon Dioxide 29 Anion Gap 8 BUN 18 Creatinine 0.7 D Creat Clearance w eGFR > 60 Random Glucose 94 D Calcium 8.3 L Magnesium 2.4 Total Bilirubin 0.5 D AST 22 D ALT 16 D Alkaline Phosphatase 41 L Creatine Kinase 462 H Creatine Kinase Index 0.6 CK-MB (CK-2) 3.031 Troponin I 0.07 H Total Protein 6.0 L Albumin 3.3 L Lipase 98 05/28/17 23:50 RBC 4.02 MCV 97.6 H MCHC 34.3 RDW 12.9 MPV 9.7 Neutrophils % Y Lymphocytes % Y - Medications Given in the ED: ED Medications Discontinued Medications Generic Name Dose Route Start Last Admin Trade Name Freq PRN Reason Stop Dose Admin Acetaminophen 1,000 mg 05/28/17 23:48 05/29/17 00:08 Ofirmev Injection - IVPB 05/28/17 23:49 1,000 mg ONCE ONE Administration Aspirin 162 mg 05/29/17 01:24 05/29/17 01:27 Asa - PO 05/29/17 01:25 162 mg ONCE ONE Administration Famotidine/Sodium Chloride 50 mls @ 100 mls/hr 05/28/17 23:48 05/29/17 00:08 Pepcid 20 Mg Premixed Ivpb - IVPB 05/29/17 00:17 100 mls/hr ONCE ONE Administration Sodium Chloride 1,000 mls @ 1,000 mls/hr 05/28/17 23:48 05/29/17 00:08 Normal Saline - IV 05/29/17 00:47 1,000 mls/hr ASDIR STA Administration <Melvin England - Last Filed: 05/29/17 01:59> Medical Decision Making - Medical Decision Making 05/29/17 01:32 A portion of this note was documented by scribe services under my direction. I have reviewed the details of the note, within reason, and agree with the documentation with the following case summary and management plan written by me. Patient treated in the ED. Nursing notes are reviewed and incorporated into the medical decision-making. Vital signs reviewed. Peripheral IV access obtained by the nurse, laboratory studies are drawn and sent, reviewed and interpreted by myself. Vital Signs Temp Pulse Resp BP Pulse Ox 98.3 F 67 20 110/69 94 L 05/28/17 23:33 05/28/17 23:33 05/28/17 23:33 05/28/17 23:33 05/28/17 23:33 52 year old female with past medical history of asthma, COPD, hepatitis C with liver cirrhosis, bipolar disorder, anxiety, schizophrenia, seizure disorder and history of pseudoseizures presents to the emergency department with left upper quadrant epigastric pain with nausea and vomiting for the last 2 days. The patient states that she was having some discomfort. Unclear if it's related to food. Stated pain was persistent and she's been feeling lightheaded and vertiginous. She reports that every time she eats she's been having vomiting. Has some left upper quadrant discomfort. I suspect that the symptoms are gastritis. Has LUQ pain and vomiting with food. However, given the circumstances, troponin was sent. CBC, BMP 05/28/17 23:50 05/28/17 23:50 CMP Sodium 142 mmol/L (136-145) 05/28/17 23:50 Potassium 4.0 mmol/L (3.5-5.1) 05/28/17 23:50 Chloride 105 mmol/L (98-107) 05/28/17 23:50 Carbon Dioxide 29 mmol/L (21-32) 05/28/17 23:50 Anion Gap 8 (8-16) 05/28/17 23:50 BUN 18 mg/dL (7-18) 05/28/17 23:50 Creatinine 0.7 mg/dL (0.55-1.02) D 05/28/17 23:50 Creat Clearance w eGFR > 60 (>60) 05/28/17 23:50 Random Glucose 94 mg/dL (74-106) D 05/28/17 23:50 Calcium 8.3 mg/dL (8.5-10.1) L 05/28/17 23:50 Magnesium 2.4 mg/dL (1.8-2.4) 05/28/17 23:50 Total Bilirubin 0.5 mg/dL (0.2-1.0) D 05/28/17 23:50 AST 22 U/L (15-37) D 05/28/17 23:50 ALT 16 U/L (12-78) D 05/28/17 23:50 Alkaline Phosphatase 41 U/L (45-117) L 05/28/17 23:50 Creatine Kinase 462 IU/L (26-192) H 05/28/17 23:50 Creatine Kinase Index 0.6 % (0.0-5.0) 05/28/17 23:50 CK-MB (CK-2) 3.031 ng/mL (0.5-3.6) 05/28/17 23:50 Troponin I 0.07 ng/ml (0.00-0.05) H 05/28/17 23:50 Total Protein 6.0 g/dl (6.4-8.2) L 05/28/17 23:50 Albumin 3.3 g/dl (3.4-5.0) L 05/28/17 23:50 Lipase 98 U/L (73-393) 05/28/17 23:50 Given substernal and LUQ pain with troponin 0.07, will need to trend troponin and EVERARDO. Aspirin ordered. Will need to admit the patient for telemetry observation. Case discussed with [place] hospitalist. Will admit for telemetry observation. <Cyrus Reeves - Last Filed: 05/29/17 01:25> - Medical Decision Making 05/29/17 01:50 <Melvin England - Last Filed: 05/29/17 01:59> *DC/Admit/Observation/Transfer - Discharge Dispostion Admit: Yes <Cyrus Reeves - Last Filed: 05/29/17 01:25> <Melvin England - Last Filed: 05/29/17 01:59> Diagnosis at time of Disposition: Elevated troponin I level Abdominal pain Qualifiers: Abdominal location: left upper quadrant Qualified Code(s): R10.12 - Left upper quadrant pain - Referrals Referrals: Joan Hernandez [Primary Care Provider] -
[2017-05-29 01:58] LABS: URINE APPEARANCE CLOUDY; URINE BILIRUBIN NEGATIVE (NEGATIVE); URINE BLOOD NEGATIVE (NEGATIVE); URINE COLOR AMBER; URINE GLUCOSE (UA) NEGATIVE (NEGATIVE); URINE KETONE 1+ (NEGATIVE); URINE NITRITE NEGATIVE (NEGATIVE)
[2017-05-29 02:09] LABS: URINE LEUK ESTERASE 1+ (NEGATIVE); URINE PROTEIN 1+ (NEGATIVE)
[2017-05-29 02:13] LABS: URINE MUCUS MANY; URINE RBC 3 /hpf (0-3); URINE WBC 16 /hpf (3-5)
[2017-05-29] MEDS ORDERED: ALBUTEROL SO4 0.083% IH SOL 2.5 MG/3 ML VIAL.NEB. NEB PRN (03:31)
[2017-05-29] MEDS ORDERED: BISACODYL 5 MG TABLET.DR (FP) PO PRN (03:39)
--- NOTE | 2017-05-29 03:41 | HP ---
CHIEF COMPLAINT: abdominal pain PCP: HISTORY OF PRESENT ILLNESS: 52 yo F with significant PMHx of asthma, COPD, Hep C with liver cirrhosis, bipolar, anxiety, schizophrenia, seizure disorder, and history of pseudoseizures [place] [facility] to [facility] Department with complaints of abdominal pains in LUQ and epigastric pain that she describes as intermittent 10/10 sharp pain.No alleviating factors and aggravated by certain positions and eating. She states she has had several episodes of NB/NB vomiting. She also endorses chills, and productive cough with brown sputum but denies subjective fevers. Denies CP,GUTIÉRREZ, SOB, palpitations. The patient denies dysuria, hematuria, urgency and frequency. ER course was notable for: (1)Elevated troponin (2)EKG shows NSR with no st or t wave abnormalities. (3)CXR shows no acute pathology. Recent Travel: PAST MEDICAL HISTORY:asthma, COPD, Hep C with liver cirrhosis, bipolar, anxiety , schizophrenia, seizure disorder, and history of pseudoseizures PAST SURGICAL HISTORY: CCY , tubal ligation and x3 Social History: Smoking:smokes 5 cigs/day Alcohol:socially Drugs: denies Family History: Allergies Penicillins Allergy (Severe, Verified 01/23/17 09:34) Rash Sulfa (Sulfonamide Antibiotics) Allergy (Severe, Verified 01/23/17 09:34) Rash azithromycin [From Zithromax] Allergy (Verified 01/23/17 09:34) codeine Allergy (Verified 01/23/17 09:34) Hives erythromycin base Allergy (Verified 01/23/17 09:34) haloperidol [From Haldol] Allergy (Verified 01/23/17 09:34) Swelling iodine Allergy (Verified 01/23/17 09:34) iron Allergy (Verified 01/23/17 09:34) lactase [From Dairy Aid] Allergy (Verified 01/23/17 09:34) latex Allergy (Verified 01/23/17 09:34) Hives ondansetron HCl [From Zofran (as hydrochloride)] Allergy (Verified 01/23/17 09: 34) phenobarbital Allergy (Verified 01/23/17 09:34) Pork/Porcine Containing Products Allergy (Verified 01/23/17 09:34) shellfish derived Allergy (Verified 01/23/17 09:34) Difficulty Breathing tetracycline Allergy (Verified 01/23/17 09:34) HOME MEDICATIONS: Home Medications Medication Instructions Recorded Albuterol Sulfate Inhaler - 2 inh PO Q6H 12/25/16 [Ventolin HFA Inhaler -] Aspirin [Aspirin EC] 81 mg PO DAILY 12/25/16 Bisacodyl [Bisacodyl -] 5 mg PO DAILY PRN 12/25/16 Pantoprazole Sodium [Protonix] 40 mg PO DAILY 12/25/16 Topiramate [Topamax -] 100 mg PO DAILY 12/25/16 Albuterol Sulfate [Proair 90 mcg IH DAILY 12/29/16 Respiclick] Budesonide/Formeterol Fumarate 1 inh PO BID 12/29/16 [SYMBICORT 80/4.5mcg -] Citalopram Hydrobromide [Celexa -] 20 mg PO DAILY 12/29/16 Lacosamide [Vimpat -] 100 mg PO BID 12/29/16 Tiotropium [place] [Spiriva] 1 inh PO DAILY 12/29/16 Divalproex Sodium [Depakote] 1,000 mg PO BID 01/25/17 Meclizine HCl 25 mg PO TID #30 tablet 03/18/17 REVIEW OF SYSTEMS CONSTITUTIONAL: Absent: fever, chills, diaphoresis, generalized weakness, malaise, loss of appetite, weight change HEENT: Absent: rhinorrhea, nasal congestion, throat pain, throat swelling, difficulty swallowing, mouth swelling, ear pain, eye pain, visual changes CARDIOVASCULAR: Absent: chest pain, syncope, palpitations, irregular heart rate, lightheadedness , peripheral edema RESPIRATORY: Absent: cough, shortness of breath, dyspnea with exertion, orthopnea, wheezing, stridor, hemoptysis GASTROINTESTINAL: abdominal pain, abdominal distension, nausea, vomiting Absent:, diarrhea, constipation, melena, hematochezia GENITOURINARY: Absent: dysuria, frequency, urgency, hesitancy, hematuria, flank pain, genital pain MUSCULOSKELETAL: Absent: myalgia, arthralgia, joint swelling, back pain, neck pain SKIN: Absent: rash, itching, pallor HEMATOLOGIC/IMMUNOLOGIC: Absent: easy bleeding, easy bruising, lymphadenopathy, frequent infections ENDOCRINE: Absent: unexplained weight gain, unexplained weight loss, heat intolerance, cold intolerance NEUROLOGIC: Absent: headache, focal weakness or paresthesias, dizziness, unsteady gait, seizure, mental status changes, bladder or bowel incontinence PSYCHIATRIC: Absent: anxiety, depression, suicidal or homicidal ideation, hallucinations. PHYSICAL EXAMINATION GENERAL:AAOx3 , NAD HEAD: NC/AT EYES: PERRLA,EOMI sclera anicteric, conjunctiva clear. No lid lag. EARS, NOSE, THROAT: Moist mucous membranes. NECK: Normal range of motion, supple without lymphadenopathy, JVD, or masses. LUNGS: Breath sounds equal, clear to auscultation bilaterally. No wheezes, and no crackles. No accessory muscle use. HEART: Regular rate and rhythm, normal S1 and S2 without murmur, rub or gallop. ABDOMEN: Soft, nontender, not distended, normoactive bowel sounds, no guarding, no rebound, no masses. No hepatomegaly or splenomegaly. MUSCULOSKELETAL: Normal range of motion at all joints. No bony deformities or tenderness. No CVA tenderness. UPPER EXTREMITIES: 2+ pulses, warm, well-perfused. No cyanosis. No clubbing. No peripheral edema. LOWER EXTREMITIES: 2+ pulses, warm, well-perfused. No calf tenderness. No peripheral edema. NEUROLOGICAL: Cranial nerves II-XII intact. Normal speech. Normal gait. PSYCHIATRIC: Cooperative. Good eye contact. Appropriate mood and affect. SKIN: Warm, dry, normal turgor, no rashes or lesions noted, normal capillary refill. ASSESSMENT/PLAN: 52 yo F with significant PMHx of asthma, COPD, Hep C with liver cirrhosis, bipolar, anxiety, schizophrenia, seizure disorder, and history of pseudoseizures placed on observation for acute elevation of trops. Problem List - Problem (1) Elevated troponin I level Assessment/Plan: * Placed on telemetry observation * Most likely not cardiac * Will trend Q6h * Echo pending * Cardio consult (2) Abdominal pain Assessment/Plan: * Protonix IV 40mg BID * NPO for now * Abdominal US pending. (3) Seizure disorder Assessment/Plan: * Continue home meds. * Divalproex Sodium 1,000 mg PO BID Visit type - Emergency Visit Emergency Visit: Yes ED Registration Date: 05/30/17 Care time: The patient presented to the Emergency Department on the above date and was hospitalized for further evaluation of their emergent condition. - New Patient This patient is new to me today: Yes Date on this admission: 06/01/17 - Critical Care Critical Care patient: No
[2017-05-29] MEDS ORDERED: SODIUM CHLORIDE 1,000 ML IV SCH (03:45)
[2017-05-29] MEDS: MECLIZINE HCL 25 MG TABLET (FP) PO SCH ×3 (06:03→21:24)
[2017-05-29 06:52] LABS: ALBUMIN 2.7 g/dl (3.4-5.0); AMYLASE 43 U/L (25-115); ANION GAP 5 (8-16); BILIRUBIN,TOTAL 0.3 mg/dL (0.2-1.0); CALCIUM 7.5 mg/dL (8.5-10.1); CO2 26 mmol/L (21-32); CREATININE 0.6 mg/dL (0.55-1.02); GLUCOSE,RANDOM 77 mg/dL (74-106); SGPT/ALT 12 U/L (12-78); TOT PROT 5.2 g/dl (6.4-8.2)
[2017-05-29 06:55] LABS: ALK PHOS 32 U/L (45-117)
[2017-05-29 07:02] LABS: SGOT/AST 17 U/L (15-37); TROPONIN I 0.08 ng/ml (0.00-0.05)
[2017-05-29 07:23] LABS: MCH 33.5 pg (25.7-33.7); MCHC 34.2 g/dl (32.0-36.0); MEAN CELL VOLUME 97.8 fl (80-96); MEAN PLT VOLUME 9.3 fl (7.5-11.1); RDW 12.9 % (11.6-15.6); WHITE BLOOD COUNT 5.7 K/mm3 (4.0-10.0)
[2017-05-29] MEDS ORDERED: PANTOPRAZOLE 40 MG TABLET (FP) PO SCH (10:00)
[2017-05-29] MEDS: ASPIRIN COATED 81 MG TABLET.EC PO SCH (10:46)
[2017-05-29] MEDS: CITALOPRAM HYDROBROMIDE 20 MG TABLET (FP) PO SCH (10:46)
[2017-05-29] MEDS: DIVALPROEX SODIUM 500 MG TABLET E.C. PO SCH ×2 (10:46→11:30)
[2017-05-29] MEDS: ACLIDINIUM BROMIDE 400 MCG/INH AERO.POWD IH SCH (10:47)
[2017-05-29] MEDS: PANTOPRAZOLE 40 MG TABLET (FP) PO SCH (10:47)
[2017-05-29] MEDS: TOPIRAMATE 100 MG TABLET PO SCH (10:47)
[2017-05-29] MEDS: BUDESONIDE/FORMETEROL FUMARATE 80/4.5 mcg INHALER IH SCH (10:47)
[2017-05-29] MEDS ORDERED: LACOSAMIDE 50 MG TABLET PO ONE (10:49)
[2017-05-29] MEDS: LACOSAMIDE 50 MG TABLET PO SCH ×2 (10:49→21:23)
[2017-05-29 12:48] LABS: TOTAL CELLS COUNTED 100
[2017-05-29 12:49] LABS: REACTIVE LYMPHOCYTES 11 % (0-80)
--- NOTE | 2017-05-29 16:06 | HOSP ---
Subjective - Review of Symptoms Subjective: Pt seen and examined. She says she feels dizzy. She endorses mal odorous urine and frequency. Physical Examination Vital Signs: Vital Signs Temperature 97.9 F 05/29/17 15:59 Pulse Rate 57 L 05/29/17 15:59 Respiratory Rate 18 05/29/17 16:04 Blood Pressure 129/78 05/29/17 15:59 O2 Sat by Pulse Oximetry (%) 98 05/29/17 16:04 Constitutional: Yes: No Distress Eyes: Yes: Conjunctiva Clear HENT: Yes: Atraumatic Neck: Yes: Supple Cardiovascular: Yes: Regular Rate and Rhythm, S1, S2 Respiratory: Yes: Regular, CTA Bilaterally Gastrointestinal: Yes: Normal Bowel Sounds, Soft Renal/: Yes: Polyuria Extremities: Yes: Other (R foot PIV) Edema: No Integumentary: Yes: WNL Neurological: Yes: Alert, Oriented, Cran Nerves II-XII Intact Labs: CBC, BMP 05/29/17 06:30 05/29/17 06:00 Hospitalist Encounter Assessment: Assessment: 52 year old female asthma, COPD, Hep C with liver cirrhosis, bipolar , anxiety, schizophrenia, seizure disorder, pseudoseizures admitted from [facility] admitted with gastritis. Plan: 1. Gastritis - Resolved - No further vomiting - Regular diet 2. UTI - Start Ceftriaxone - Urine cx pending - Start gentle fluids NS 83cc/hr 3. Elevated trop - Possible demand ischemia, less likely ACS - Repeat trop now 4. Bipolar/schizophrenia/seizure disorder - Continue home meds
[2017-05-29] MEDS ORDERED: CEFTRIAXONE 1 GM in DEXTROSE 5%-WATER - 50 ML IVPB SCH (16:15)
[2017-05-29] MEDS: LEVOFLOXACIN 500 MG IVPB 100 ML IVPB SCH (17:13)
[2017-05-29] MEDS: SODIUM CHLORIDE 1,000 ML IV SCH (17:13)
--- NOTE | 2017-05-29 18:38 | EKG ---
Test Reason : Blood Pressure : / mmHG Vent. Rate : 065 BPM Atrial Rate : 065 BPM P-R Int : 176 ms QRS Dur : 076 ms QT Int : 440 ms P-R-T Axes : 051 058 033 degrees QTc Int : 457 ms NORMAL SINUS RHYTHM NORMAL ECG WHEN COMPARED WITH ECG OF 21-MAY-2017 15:27, NO SIGNIFICANT CHANGE WAS FOUND Confirmed by SHELLEY JARA MD ([id number]) on 05/29/2017 6:38:34 PM Referred By: Confirmed By:SHELLEY JARA MD
[2017-05-29 19:12] LABS: TOTAL CELLS COUNTED 100
[2017-05-29] MEDS: ACETAMINOPHEN 325 MG TABLET (FP) PO PRN (21:24)
[2017-05-30] MEDS: MECLIZINE HCL 25 MG TABLET (FP) PO SCH ×3 (06:32→22:27)
[2017-05-30] MEDS: ACLIDINIUM BROMIDE 400 MCG/INH AERO.POWD IH SCH ×2 (06:34→12:25)
[2017-05-30] MEDS: BUDESONIDE/FORMETEROL FUMARATE 80/4.5 mcg INHALER IH SCH ×2 (06:34→12:25)
[2017-05-30] MEDS ORDERED: PT OWN MED DRAWER 7, Y5N ONE (09:11)
[2017-05-30] MEDS: LACOSAMIDE 50 MG TABLET PO SCH ×2 (09:20→22:27)
[2017-05-30] MEDS: TOPIRAMATE 100 MG TABLET PO SCH (09:20)
[2017-05-30] MEDS: PANTOPRAZOLE 40 MG TABLET (FP) PO SCH (09:21)
[2017-05-30] MEDS: DIVALPROEX SODIUM 500 MG TABLET E.C. PO SCH ×2 (09:21→22:26)
[2017-05-30] MEDS: ACETAMINOPHEN 325 MG TABLET (FP) PO PRN (09:21)
[2017-05-30] MEDS: LEVOFLOXACIN 500 MG IVPB 100 ML IVPB SCH (09:21)
[2017-05-30] MEDS: CITALOPRAM HYDROBROMIDE 20 MG TABLET (FP) PO SCH (09:21)
[2017-05-30] MEDS: ASPIRIN COATED 81 MG TABLET.EC PO SCH (09:21)
[2017-05-30 13:09] LABS: TROPONIN I 0.07 ng/ml (0.00-0.05)
[2017-05-30 13:52] LABS: ALK PHOS 33 U/L (45-117); ANION GAP 9 (8-16); BILIRUBIN,TOTAL 0.3 mg/dL (0.2-1.0); CALCIUM 8.5 mg/dL (8.5-10.1); CO2 26 mmol/L (21-32); CREATININE 0.6 mg/dL (0.55-1.02); GLUCOSE,RANDOM 77 mg/dL (74-106); SGOT/AST 15 U/L (15-37); SGPT/ALT 14 U/L (12-78); TOT PROT 5.7 g/dl (6.4-8.2)
[2017-05-30 15:52] LABS: MCHC 33.7 g/dl (32.0-36.0); MEAN PLT VOLUME 10.1 fl (7.5-11.1); PLATELET COUNT 107 K/MM3 (134-434); RDW 12.7 % (11.6-15.6); WHITE BLOOD COUNT 5.2 K/mm3 (4.0-10.0)
--- NOTE | 2017-05-30 16:29 | PN ---
Physical Exam: SUBJECTIVE: Patient seen and examined. She complains of dizziness and her R flank hurting as well as burning upon urination OBJECTIVE: PE Neuro: alert, awake, cn 2-12intact Pulm: CTAB CV: s1 s2 rrr Abd: s nt nd + bs : r flank tenderness Ext: warm. no le edema CBCD WBC 5.2 K/mm3 (4.0-10.0) 05/30/17 15:30 RBC 3.85 M/mm3 (3.60-5.2) 05/30/17 15:30 Hgb 12.7 GM/dL (10.7-15.3) 05/30/17 15:30 Hct 37.7 % (32.4-45.2) 05/30/17 15:30 MCV 98.0 fl (80-96) H 05/30/17 15:30 MCHC 33.7 g/dl (32.0-36.0) 05/30/17 15:30 RDW 12.7 % (11.6-15.6) 05/30/17 15:30 Plt Count 107 K/MM3 (134-434) L D 05/30/17 15:30 MPV 10.1 fl (7.5-11.1) 05/30/17 15:30 CMP Sodium 142 mmol/L (136-145) 05/30/17 12:00 Potassium 4.3 mmol/L (3.5-5.1) 05/30/17 12:00 Chloride 107 mmol/L (98-107) 05/30/17 12:00 Carbon Dioxide 26 mmol/L (21-32) 05/30/17 12:00 Anion Gap 9 (8-16) 05/30/17 12:00 BUN 9 mg/dL (7-18) D 05/30/17 12:00 Creatinine 0.6 mg/dL (0.55-1.02) 05/30/17 12:00 Creat Clearance w eGFR > 60 (>60) 05/30/17 12:00 Calcium 8.5 mg/dL (8.5-10.1) 05/30/17 12:00 Total Bilirubin 0.3 mg/dL (0.2-1.0) 05/30/17 12:00 AST 15 U/L (15-37) 05/30/17 12:00 ALT 14 U/L (12-78) 05/30/17 12:00 Alkaline Phosphatase 33 U/L (45-117) L 05/30/17 12:00 Total Protein 5.7 g/dl (6.4-8.2) L 05/30/17 12:00 Albumin 3.0 g/dl (3.4-5.0) L 05/30/17 12:00 05/30/17 12:00 Troponin I 0.07 H Active Medications Generic Name Dose Route Start Last Admin Trade Name Freq PRN Reason Stop Dose Admin Acetaminophen 650 mg 05/29/17 03:31 05/30/17 09:21 Tylenol - PO 650 mg Q4H PRN Administration FEVER OR PAIN Aclidinium [place] 1 puff 05/29/17 10:00 05/30/17 12:25 Tudorza - IH Not Given BID LEONIE Albuterol Sulfate 1 amp 05/29/17 03:31 Ventolin 0.083% Nebulizer Soln - NEB Q4H PRN SHORT OF BREATH/WHEEZING Aspirin 81 mg 05/29/17 10:00 05/30/17 09:21 Ecotrin - PO 81 mg DAILY LEONIE Administration Bisacodyl 5 mg 05/29/17 03:39 05/30/17 09:21 Dulcolax - PO 5 mg DAILY PRN Administration CONSTIPATION Budesonide/Formoterol Fumarate 1 puff 05/29/17 10:00 05/30/17 12:25 Symbicort 80/4.5mcg - IH Not Given BID LEONIE Citalopram Hydrobromide 20 mg 05/29/17 10:00 05/30/17 09:21 Celexa - PO 20 mg DAILY LEONIE Administration Divalproex Sodium 1,000 mg 05/29/17 10:00 05/30/17 09:21 Depakote - PO 1,000 mg BID LEONIE Administration Sodium Chloride 1,000 mls @ 83 mls/hr 05/29/17 16:15 05/29/17 17:13 Normal Saline - IV 83 mls/hr ASDIR LEONIE Administration Levofloxacin 100 mls @ 100 mls/hr 05/29/17 16:37 05/30/17 09:21 Levaquin 500 Mg Premixed Ivpb - IVPB 100 mls/hr DAILY LEONIE Administration Lacosamide 100 mg 05/29/17 10:00 05/30/17 09:20 Vimpat - PO 100 mg BID LEONIE Administration Meclizine HCl 25 mg 05/29/17 06:00 05/30/17 15:39 Antivert - PO 25 mg TID LEONIE Administration Pantoprazole Sodium 40 mg 05/29/17 10:00 05/30/17 09:21 Protonix - PO 40 mg DAILY LEONIE Administration Topiramate 100 mg 05/29/17 10:00 05/30/17 09:20 Topamax - PO 100 mg DAILY LEONIE Administration Microbiology 05/29/17 01:30 Urine Culture - Final Urine - Urine Clean Catch Assessment: 52 year old female asthma, COPD, Hep C with liver cirrhosis, bipolar , anxiety, schizophrenia, seizure disorder, pseudoseizures admitted from [facility] (Former[facility]) admitted with gastritis. Plan: 1. Gastritis - Resolved - No further vomiting - Regular diet 2. UTI - Levaquin (day 2) - Urine cx <10k - Complaints of burning on urination and flank pain - Obtain renal us r/o stones 3. Elevated trop - Possible demand ischemia, less likely ACS - Trop down trending - Repeat in AM 4. Bipolar/schizophrenia/seizure disorder - Continue home meds Visit type - Emergency Visit Emergency Visit: Yes ED Registration Date: 05/30/17 Care time: The patient presented to the Emergency Department on the above date and was hospitalized for further evaluation of their emergent condition. - New Patient This patient is new to me today: No - Critical Care Critical Care patient: No
[2017-05-30 17:57] LABS: TOTAL CELLS COUNTED 100
[2017-05-30 17:58] LABS: PLATELET ESTIMATE SLT DECREASE; REACTIVE LYMPHOCYTES 6 % (0-80)
[2017-05-30 17:59] LABS: TOTAL CELLS COUNTED 100
[2017-05-31] MEDS: MECLIZINE HCL 25 MG TABLET (FP) PO SCH ×3 (05:39→21:47)
[2017-05-31] MEDS: BUDESONIDE/FORMETEROL FUMARATE 80/4.5 mcg INHALER IH SCH ×4 (05:40→21:55)
[2017-05-31] MEDS: ACLIDINIUM BROMIDE 400 MCG/INH AERO.POWD IH SCH ×4 (05:40→21:56)
[2017-05-31] MEDS ORDERED: PT OWN MED DRAWER 7, Y5N ONE (09:22)
[2017-05-31] MEDS: LEVOFLOXACIN 500 MG IVPB 100 ML IVPB SCH (09:35)
[2017-05-31] MEDS: LACOSAMIDE 50 MG TABLET PO SCH ×2 (09:39→21:47)
[2017-05-31] MEDS: TOPIRAMATE 100 MG TABLET PO SCH (09:39)
[2017-05-31] MEDS: CITALOPRAM HYDROBROMIDE 20 MG TABLET (FP) PO SCH (09:39)
[2017-05-31] MEDS: ASPIRIN COATED 81 MG TABLET.EC PO SCH (09:40)
[2017-05-31] MEDS: DIVALPROEX SODIUM 500 MG TABLET E.C. PO SCH ×2 (09:40→21:47)
[2017-05-31] MEDS: PANTOPRAZOLE 40 MG TABLET (FP) PO SCH (09:41)
[2017-05-31] MEDS: SODIUM CHLORIDE 1,000 ML IV SCH (09:42)
--- NOTE | 2017-05-31 15:20 | DS ---
Physical Exam: SUBJECTIVE: Patient seen and examined. She has dizziness, but its always there. She ambulated with PT with walker. OBJECTIVE: Vital Signs Period Temp Pulse Resp BP Sys/Horn Pulse Ox Last 24 Hr 97.7 F-98.4 F 56-98 18-20 107-122/57-70 98-98 PE Neuro: alert, awake, cn 2-12intact Pulm: CTAB CV: s1 s2 rrr Abd: s nt nd + bs Ext: warm, no le edema Laboratory Results - last 24 hr 05/30/17 05/31/17 15:30 05:48 WBC 5.2 RBC 3.85 Hgb 12.7 Hct 37.7 MCV 98.0 H MCH 33.0 MCHC 33.7 RDW 12.7 Plt Count 107 L D MPV 10.1 Neutrophils % Y Neutrophils % (Manual) 20 L D Lymphocytes % Y Lymphocytes % (Manual) 62 H Monocytes % (Manual) 5 Eosinophils % (Manual) 7 H D Platelet Estimate Slt decrease Troponin I 0.07 H HOSPITAL COURSE: Date of Admission:05/30/17 Date of Discharge: 05/31/17 Minutes to complete discharge: 36 Discharge Summary Reason For Visit: ELEVATED TROPONIN LEVEL,ABDOMINAL PAIN Current Active Problems Abdominal pain (Acute) DVT prophylaxis (Acute) Elevated troponin I level (Acute) Hx of myocardial infarction (Acute) Seizure disorder (Acute) Viral gastroenteritis (Acute) Hospital Course: Initial Hospital Course: Briefly, this 52 year old female with significant PMHx of asthma, COPD, Hep C with liver cirrhosis, bipolar, anxiety, schizophrenia, seizure disorder, and history of pseudoseizures from [facility] presented to the ED with abdominal pains in LUQ and epigastric pain that she describes as intermittent 10 /10 sharp pain.No alleviating factors and aggravated by certain positions and eating. She had several episodes of NB/NB vomiting with chills, and productive cough with brown sputum but denies subjective fevers. Subsequent Hospital Course/Progress Note/Discharge Summary by a/p: Assessment: 52 year old female asthma, COPD, Hep C with liver cirrhosis, bipolar , anxiety, schizophrenia, seizure disorder, pseudoseizures admitted from [facility] admitted with gastritis. Plan: 1. Gastritis - Hydrated with fluids - Resolved 2. UTI - Dysuria and frequency improved - IV Levaquin x3 days - Urine cx negative - No stones noted on kidney US 3. Elevated trop - Suspect demand ischemia from above, less likely ACS, no chest pain or pleuritic symptoms - Trop flat -> 0.07 - ECHO 05/31/17 with normal lvsf, RV, trace MR 4. Bipolar/schizophrenia/seizure disorder - Continue home meds 5. Asthma - Continue home meds 6. Dizziness - Chronic - On meclizine - Continue ambulation with walker Dispo: - Return to snf - Ambulate with walker and continue Pt daily Condition: Stable - Instructions Diet, Activity, Other Instructions: Please return to the ED for any new, persistent, or worsening symptoms. Follow up with your PCP in 1 week Resume home medications as directed Complete antibiotic as directed Referrals: Joan Hernandez [Primary Care Provider] - Disposition: HOME - Home Medications Comprehensive Discharge Medication List: Ambulatory Orders Albuterol Sulfate Inhaler - [Ventolin HFA Inhaler -] 2 inh PO Q6H 12/25/16 Aspirin [Aspirin EC] 81 mg PO DAILY 12/25/16 Bisacodyl [Bisacodyl -] 5 mg PO DAILY PRN 12/25/16 Pantoprazole Sodium [Protonix] 40 mg PO DAILY 12/25/16 Topiramate [Topamax -] 100 mg PO DAILY 12/25/16 Albuterol Sulfate [Proair Respiclick] 90 mcg IH DAILY 12/29/16 Budesonide/Formeterol Fumarate [SYMBICORT 80/4.5mcg -] 1 inh PO BID 12/29/16 Citalopram Hydrobromide [Celexa -] 20 mg PO DAILY 12/29/16 Lacosamide [Vimpat -] 100 mg PO BID 12/29/16 Tiotropium [place] [Spiriva] 1 inh PO DAILY 12/29/16 Divalproex Sodium [Depakote] 1,000 mg PO BID 01/25/17 Meclizine HCl 25 mg PO TID #30 tablet 03/18/17 This patient is new to me today: No Emergency Visit: Yes ED Registration Date: 05/30/17 Care time: The patient presented to the Emergency Department on the above date and was hospitalized for further evaluation of their emergent condition. Critical Care patient: No - Discharge Referral Referred to [facility] No
[2017-05-31] MEDS: ACETAMINOPHEN 325 MG TABLET (FP) PO PRN (21:48)
[2017-06-01] MEDS: MECLIZINE HCL 25 MG TABLET (FP) PO SCH (06:09)
[2017-06-01 08:20] VITALS: BP 122/67; PULSE 58; TEMP 98
[2017-06-01] MEDS: ASPIRIN COATED 81 MG TABLET.EC PO SCH (09:01)
[2017-06-01] MEDS: CITALOPRAM HYDROBROMIDE 20 MG TABLET (FP) PO SCH (09:01)
[2017-06-01] MEDS: LACOSAMIDE 50 MG TABLET PO SCH (09:01)
[2017-06-01] MEDS: DIVALPROEX SODIUM 500 MG TABLET E.C. PO SCH (09:01)
[2017-06-01] MEDS: PANTOPRAZOLE 40 MG TABLET (FP) PO SCH (09:01)
[2017-06-01] MEDS: ACLIDINIUM BROMIDE 400 MCG/INH AERO.POWD IH SCH (09:04)
[2017-06-01] MEDS: TOPIRAMATE 100 MG TABLET PO SCH (09:04)
[2017-06-01] MEDS: BUDESONIDE/FORMETEROL FUMARATE 80/4.5 mcg INHALER IH SCH (09:04)
== END 2017-06-01 09:19 | DRG 241 ==
LOC: JER 23:08 → JERBED 05-29 01:40 → J4W 05-29 15:00 → OBSVTOIN 05-30 14:30
PROVIDERS: ADMIT Internal Medicine; ATTEND Nurse Practitioner Acute Care
DX: K29.60 Other gastritis without bleeding (principal); J44.9 Chronic obstructive pulmonary disease, unspecified; K74.69 Other cirrhosis of liver; B19.20 Unspecified viral hepatitis C without hepatic coma; F20.89 Other schizophrenia; F31.89 Other bipolar disorder; F41.8 Other specified anxiety disorders; G40.802 Other epilepsy, not intractable, without status epilepticus; K21.9 Gastro-esophageal reflux disease without esophagitis; F14.10 Cocaine abuse, uncomplicated; F11.10 Opioid abuse, uncomplicated; F17.210 Nicotine dependence, cigarettes, uncomplicated; N39.0 Urinary tract infection, site not specified; I25.2 Old myocardial infarction; R42 Dizziness and giddiness
CPT/HCPCS: 36415; 71010-TC; 76775-TC; 80053; 81003; 81015; 82150; 82553; 83690; 83735; 84484; 85025; 87086; 93005; 93010; 93306-TC; 97116-GP; 97161-GP; 99285-25; G0378

== ENCOUNTER 2017-06-01 19:02 | Emergency (ER) | payer OTHER ==
[2017-06-01 20:05] VITALS: BMI 31.7
--- NOTE | 2017-06-01 20:37 | PDOC ---
History of Present Illness - History of Present Illness Initial Comments: 06/01/17 23:08 The patient is a 52 year old female, with a significant past medical history of asthma, COPD, Hep C with liver cirrhosis, bipolar, anxiety, schizophrenia, seizure disorder, and history of pseudoseizures, who presents to the emergency department with persistent epigastric and suprapubic pain, chills, dysuria, nausea, and vomiting today s/p recent admission. She reports being told to return to the ED if her symptoms did not subside after discharge home. She reports 5 episodes of nonbilious/nonbloody emesis today, twice after eating lunch and three times after eating dinner today. She also complains of burning on urination despite taking levaquin. She denies chest pain, shortness of breath, headache and dizziness. She denies fever, diarrhea and constipation. She denies frequency, urgency and hematuria. Allergies: NKDA PCP - Dr. Garrido <Emily Singh - Last Filed: 06/01/17 23:37> <Haris Velasquez - Last Filed: 06/02/17 18:18> - General Chief Complaint: Nausea/Vomiting Stated Complaint: PAIN Past History <Emily Singh - Last Filed: 06/01/17 23:37> - Past Medical History Anemia: No Asthma: Yes Cancer: No Cardiac Disorders: No CVA: No COPD: Yes CHF: No Dementia: No Diabetes: No GI Disorders: Yes (ACID REFLUX,HEP C) Disorders: No HTN: No Hypercholesterolemia: No Kidney Stones: No Liver Disease: Yes (cirrhosis, Hep C) Psychiatric Problems: Yes (bipolar, anxiety) Suicide Attempt (Hx): Yes (PT DO,'T WANT TO ANSWER THIS QUESTION.) Seizures: Yes Thyroid Disease: No - Surgical History Abdominal Surgery: No Appendectomy: No Cardiac Surgery: No Cholecystectomy: Yes Lung Surgery: No Neurologic Surgery: No Orthopedic Surgery: No - Reproductive History PID: No - Immunization History Immunization Up to Date: Yes - Psycho/Social/Smoking Cessation Hx Anxiety: No Suicidal Ideation: No Smoking History: Never smoked Have you smoked in the past 12 months: No Number of Cigarettes Smoked Daily: 3 Information on smoking cessation initiated: No 'Breaking Loose' booklet given: 10/26/16 Hx Alcohol Use: No Drug/Substance Use Hx: No Substance Use Type: Cocaine, Opiates Hx Substance Use Treatment: Yes (completed this program in 2005.) <Haris Velasquez - Last Filed: 06/02/17 18:18> - Past Medical History Allergies/Adverse Reactions: Allergies Allergy/AdvReac Type Severity Reaction Status Date / Time Penicillins Allergy Severe Rash Verified 01/23/17 09:34 Sulfa (Sulfonamide Allergy Severe Rash Verified 01/23/17 09:34 Antibiotics) azithromycin [From Zithromax] Allergy Verified 01/23/17 09:34 codeine Allergy Hives Verified 01/23/17 09:34 erythromycin base Allergy Verified 01/23/17 09:34 haloperidol [From Haldol] Allergy Swelling Verified 01/23/17 09:34 iodine Allergy Verified 01/23/17 09:34 iron Allergy Verified 01/23/17 09:34 lactase [From Dairy Aid] Allergy Verified 01/23/17 09:34 latex Allergy Hives Verified 01/23/17 09:34 ondansetron HCl Allergy Verified 01/23/17 09:34 [From Zofran (as hydrochloride)] phenobarbital Allergy Verified 01/23/17 09:34 Pork/Porcine Containing Allergy Verified 01/23/17 09:34 Products shellfish derived Allergy Difficulty Verified 01/23/17 09:34 Breathing tetracycline Allergy Verified 01/23/17 09:34 Home Medications: Ambulatory Orders Albuterol Sulfate Inhaler - [Ventolin HFA Inhaler -] 2 inh PO Q6H 12/25/16 Aspirin [Aspirin EC] 81 mg PO DAILY 12/25/16 Bisacodyl [Bisacodyl -] 5 mg PO DAILY PRN 12/25/16 Pantoprazole Sodium [Protonix] 40 mg PO DAILY 12/25/16 Topiramate [Topamax -] 100 mg PO DAILY 12/25/16 Albuterol Sulfate [Proair Respiclick] 90 mcg IH DAILY 12/29/16 Budesonide/Formeterol Fumarate [SYMBICORT 80/4.5mcg -] 1 inh PO BID 12/29/16 Citalopram Hydrobromide [Celexa -] 20 mg PO DAILY 12/29/16 Lacosamide [Vimpat -] 100 mg PO BID 12/29/16 Tiotropium [place] [Spiriva] 1 inh PO DAILY 12/29/16 Divalproex Sodium [Depakote] 1,000 mg PO BID 01/25/17 Meclizine HCl 25 mg PO TID #30 tablet 03/18/17 Review of Systems - Review of Systems Able to Perform ROS?: Yes Comments:: 06/01/17 23:09 GENERAL/CONSTITUTIONAL:(+) chills. No fever No weakness. HEAD, EYES, EARS, NOSE AND THROAT: No change in vision. No ear pain or discharge. No sore throat. CARDIOVASCULAR: No chest pain or shortness of breath. RESPIRATORY: No cough, wheezing, or hemoptysis. GASTROINTESTINAL: (+) nausea, vomiting, epigastric and suprapubis pain. No diarrhea or constipation. GENITOURINARY:(+) dysuria, Nofrequency, or change in urination. MUSCULOSKELETAL: No joint or muscle swelling or pain. No neck or back pain. SKIN: No rash NEUROLOGIC: No headache, vertigo, loss of consciousness, or change in strength/ sensation. ENDOCRINE: No increased thirst. No abnormal weight change. HEMATOLOGIC/LYMPHATIC: No anemia, easy bleeding, or history of blood clots. ALLERGIC/IMMUNOLOGIC: No hives or skin allergy. <Emily Singh - Last Filed: 06/01/17 23:37> *Physical Exam - Vital Signs Last Vital Signs Temp Pulse Resp BP Pulse Ox 98.1 F 74 14 105/57 96 06/01/17 20:00 06/01/17 20:00 06/01/17 20:00 06/01/17 20:00 06/01/17 20:00 - Physical Exam Comments: 06/01/17 23:09 GENERAL: Awake, alert, and fully oriented, in no acute distress HEAD: No signs of trauma EYES: PERRLA, EOMI, sclera anicteric, conjunctiva clear ENT: Auricles normal inspection, hearing grossly normal, nares patent, oropharynx clear without exudates. Moist mucosa NECK: Normal ROM, supple, no lymphadenopathy, JVD, or masses LUNGS: Breath sounds equal, clear to auscultation bilaterally. No wheezes, and no crackles HEART: Regular rate and rhythm, normal S1 and S2, no murmurs, rubs or gallops ABDOMEN: (+) epigastric and LUQ tenderness to palpation. Soft, normoactive bowel sounds. No guarding, no rebound. No masses EXTREMITIES: Normal range of motion, no edema. No clubbing or cyanosis. No cords, erythema, or tenderness NEUROLOGICAL: Normal speech, cranial nerves intact, negative pronator drift, 5/ 5 strength in all 4 extremities, normal sensation to light touch in all 4 extremities, normal cerebellar exam, normal gait, normal reflexes and tone SKIN: Warm, Dry, normal turgor, no rashes or lesions noted <Emily Singh - Last Filed: 06/01/17 23:37> - Vital Signs Last Vital Signs Temp Pulse Resp BP Pulse Ox 98.1 F 74 14 105/57 96 06/01/17 20:00 06/01/17 20:00 06/01/17 20:00 06/01/17 20:00 06/01/17 20:00 <Haris Velasquez - Last Filed: 06/02/17 18:18> Heart Score/ECG Review - ECG Intrepretation Comment:: 06/01/17 23:07 EKG was read by Dr. Ware at 22:06 Impression: Normal sinus rhythm with a rate of 60. Normal axis and intervals. No ST elevations. No T wave inversions <Emily Singh - Last Filed: 06/01/17 23:37> ED Treatment Course - LABORATORY CBC & Chemistry Diagram: 06/01/17 21:27 06/01/17 21:27 - ADDITIONAL ORDERS Additional order review: Laboratory Results 06/01/17 06/01/17 21:49 21:27 Sodium 140 Potassium 3.9 Chloride 103 Carbon Dioxide 28 Anion Gap 9 BUN 16 D Creatinine 0.6 Creat Clearance w eGFR > 60 Random Glucose 79 Calcium 9.3 Total Bilirubin 0.5 D AST 8 L D ALT 14 Alkaline Phosphatase 42 L D Troponin I 0.07 H Total Protein 6.9 D Albumin 3.7 D Lipase 85 Urine Color Yellow Urine Appearance Slcloudy Urine pH 7.0 D Urine Protein Negative Urine Glucose (UA) Negative Urine Ketones Trace H Urine Blood Negative Urine Nitrite Negative Urine Bilirubin Negative Urine Urobilinogen Negative Ur Leukocyte Esterase 1+ H Urine RBC 4 Urine WBC 39 Ur Epithelial Cells Moderate Urine Mucus Rare 06/01/17 21:27 RBC 4.57 MCV 97.3 H MCHC 33.1 RDW 13.0 MPV 8.2 D Neutrophils % 33.6 L D Lymphocytes % 54.4 H D Monocytes % 8.2 Eosinophils % 3.3 D Basophils % 0.5 - Medications Given in the ED: ED Medications Discontinued Medications Generic Name Dose Route Start Last Admin Trade Name Abi PRN Reason Stop Dose Admin Pantoprazole Sodium 40 mg/ 100 mls @ 200 mls/hr 06/01/17 21:02 06/01/17 21:39 Sodium Chloride IVPB 06/01/17 21:31 200 mls/hr ONCE ONE Administration Metoclopramide HCl 10 mg 06/01/17 21:02 06/01/17 21:39 Reglan Injection - IVPUSH 06/01/17 21:03 10 mg ONCE ONE Administration <Emily Singh - Last Filed: 06/01/17 23:37> - LABORATORY CBC & Chemistry Diagram: 06/01/17 21:27 06/01/17 21:27 <Haris Velasquez - Last Filed: 06/02/17 18:18> Medical Decision Making - Medical Decision Making 06/01/17 23:37 52 year old female, with a significant past medical history of asthma, COPD, Hep C with liver cirrhosis, bipolar, anxiety, schizophrenia, seizure disorder, and history of pseudoseizures, who presents to the emergency department with persistent epigastric and suprapubic pain, chills, dysuria, nausea, and vomiting today. Exam with epigastric, LUQ and suprapubic tenderness to palpation.Differential includes gastritis vs pancreatitis vs UTI - although UTI unlikely given pt on levaquin. -labs -UA -pain control -PO challenge -reassess <Haris Velasquez - Last Filed: 06/02/17 18:18> *DC/Admit/Observation/Transfer - Attestations Scribe Attestion: 06/01/17 23:10 Documentation prepared by Emily Singh, acting as medical education manager for Haris Velasquez MD <Emily Singh - Last Filed: 06/01/17 23:37> <Haris Velasquez - Last Filed: 06/02/17 18:18> Diagnosis at time of Disposition: Abdominal pain Qualifiers: Abdominal location: unspecified location Qualified Code(s): R10.9 - Unspecified abdominal pain - Referrals Referrals: Joan Harper [Non Staff, Medical] - Tanvir Titus MD [Staff Physician] - Michell Garrido MD [Primary Care Provider] - - Patient Instructions Printed Discharge Instructions: Gastritis (Alternative Therapy) Additional Instructions: you need to quit smoking. you should also follow up with a waste disposal plant operator. Dr Joaquin who visits your facility should evaluate you for potential outpatient stress test on your heart on next visit. you should also follow up with DR HARPER this week. continue taking aspirin daily. return for any problems or concerns. you can follow up with DR Titus ( waste disposal plant operator ) call [phone] to schedule.
[2017-06-01] MEDS ORDERED: PANTOPRAZOLE SODIUM 40 MG in SODIUM CHLORIDE 100 ML IVPB ONE (21:02)
[2017-06-01] MEDS ORDERED: METOCLOPRAMIDE HCL INJECTION 10 MG/2 ML VIAL IVPUSH ONE (21:02)
[2017-06-01] MEDS ORDERED: METOCLOPRAMIDE HCL INJECTION 10 MG/2 ML VIAL ONE (21:29)
[2017-06-01] MEDS ORDERED: PANTOPRAZOLE SODIUM 100 ML IVPB ONE (21:29)
[2017-06-01 21:49] LABS: BASOPHIL 0.5 % (0-2.0); EOSINOPHIL 3.3 % (0-4.5); MCH 32.2 pg (25.7-33.7); MCHC 33.1 g/dl (32.0-36.0); MEAN CELL VOLUME 97.3 fl (80-96); MEAN PLT VOLUME 8.2 fl (7.5-11.1); NEUTROPHILS 33.6 % (42.8-82.8); PLATELET COUNT 151 K/MM3 (134-434); WHITE BLOOD COUNT 8.1 K/mm3 (4.0-10.0)
[2017-06-01 21:59] LABS: URINE APPEARANCE SLCLOUDY; URINE BILIRUBIN NEGATIVE (NEGATIVE); URINE BLOOD NEGATIVE (NEGATIVE); URINE COLOR YELLOW; URINE GLUCOSE (UA) NEGATIVE (NEGATIVE); URINE KETONE TRACE (NEGATIVE); URINE NITRITE NEGATIVE (NEGATIVE); URINE PROTEIN NEGATIVE (NEGATIVE); URINE UROBILINOGEN NEGATIVE mg/dL (0.2-1.0)
[2017-06-01 22:04] LABS: URINE LEUK ESTERASE 1+ (NEGATIVE)
[2017-06-01 22:09] LABS: URINE MUCUS RARE; URINE RBC 4 /hpf (0-3); URINE WBC 39 /hpf (3-5)
[2017-06-01 22:22] LABS: ALBUMIN 3.7 g/dl (3.4-5.0); ANION GAP 9 (8-16); CALCIUM 9.3 mg/dL (8.5-10.1); CO2 28 mmol/L (21-32); CREATININE 0.6 mg/dL (0.55-1.02); GLUCOSE,RANDOM 79 mg/dL (74-106); SGOT/AST 8 U/L (15-37); SGPT/ALT 14 U/L (12-78)
[2017-06-01 22:26] LABS: ALK PHOS 42 U/L (45-117); BILIRUBIN,TOTAL 0.5 mg/dL (0.2-1.0); TOT PROT 6.9 g/dl (6.4-8.2); TROPONIN I 0.07 ng/ml (0.00-0.05)
[2017-06-02 08:10] VITALS: TEMP 98.2
--- NOTE | 2017-06-02 08:15 | PDOC ---
*Physical Exam - Vital Signs Last Vital Signs Temp Pulse Resp BP Pulse Ox 98.1 F 74 14 105/57 96 06/01/17 20:00 06/01/17 20:00 06/01/17 20:00 06/01/17 20:00 06/01/17 20:00 - Physical Exam General Appearance: Yes: Appropriately Dressed HEENT: positive: Normal ENT Inspection Neck: positive: Trachea midline Respiratory/Chest: positive: Lungs Clear, Normal Breath Sounds. negative: Chest Tender Cardiovascular: positive: Regular Rhythm, Regular Rate, S1, S2 Gastrointestinal/Abdominal: positive: Normal Bowel Sounds, Flat, Soft, Other ( obese). negative: Tender Musculoskeletal: positive: Normal Inspection. negative: CVA Tenderness Extremity: positive: Normal Capillary Refill Integumentary: positive: Normal Color, Dry, Warm Heart Score/ECG Review #1 General ECG Interpretation: Sinus Rhythm, Normal Rate (66), Normal Intervals, No acute ischemic changes Compared to previous ECG there are: No significant change (no change comparison 05/29 and 06/01) ED Treatment Course - LABORATORY CBC & Chemistry Diagram: 06/01/17 21:27 06/01/17 21:27 - ADDITIONAL ORDERS Additional order review: Laboratory Results 06/01/17 06/01/17 21:49 21:27 Sodium 140 Potassium 3.9 Chloride 103 Carbon Dioxide 28 Anion Gap 9 BUN 16 D Creatinine 0.6 Creat Clearance w eGFR > 60 Random Glucose 79 Calcium 9.3 Total Bilirubin 0.5 D AST 8 L D ALT 14 Alkaline Phosphatase 42 L D Troponin I 0.07 H Total Protein 6.9 D Albumin 3.7 D Lipase 85 Urine Color Yellow Urine Appearance Slcloudy Urine pH 7.0 D Urine Protein Negative Urine Glucose (UA) Negative Urine Ketones Trace H Urine Blood Negative Urine Nitrite Negative Urine Bilirubin Negative Urine Urobilinogen Negative Ur Leukocyte Esterase 1+ H Urine RBC 4 Urine WBC 39 Ur Epithelial Cells Moderate Urine Mucus Rare 06/01/17 21:27 RBC 4.57 MCV 97.3 H MCHC 33.1 RDW 13.0 MPV 8.2 D Neutrophils % 33.6 L D Lymphocytes % 54.4 H D Monocytes % 8.2 Eosinophils % 3.3 D Basophils % 0.5 - Medications Given in the ED: ED Medications Discontinued Medications Generic Name Dose Route Start Last Admin Trade Name Freq PRN Reason Stop Dose Admin Pantoprazole Sodium 40 mg/ 100 mls @ 200 mls/hr 06/01/17 21:02 06/01/17 21:39 Sodium Chloride IVPB 06/01/17 21:31 200 mls/hr ONCE ONE Administration Metoclopramide HCl 10 mg 06/01/17 21:02 06/01/17 21:39 Reglan Injection - IVPUSH 06/01/17 21:03 10 mg ONCE ONE Administration Medical Decision Making - Medical Decision Making 06/02/17 08:09 52 yo F wtih h/o copd, bipolar hep C tobacco use, currently living in a [facility] assisted living, here today c/o epigastric pain luq pain. states she always has chest pain and had a heart attack 30 yrs ago. states no prior cardiac workup. however, review of records indicate pt was just dc from hospital for same complaints yesterday. during stay had an echo which was normal. in ed this visit trop were positive at .07, repeat was . 067. review previous blood work shows pt rosendo potter has trop 0.7. d.w mikel head nurse geovanna [phone] who states they have a visiting trucker Dr Joaquin who the patient can followup with. pt states she is a smoker and has family h/ o [place]. pt educated she should continue asa, and stop smoking. had previously d/ w dr gonzales, as pt was awaiting admission on my arrival and assuming care of pt at [address] gonzales states pt just dc from hospital and does not meet admission criteria. ekg reviewed NSR 60 bpm, no st elevation or depression. 06/02/17 08:35 repeat ekg unchanged. pt requesting to go home. d/w nurse will dc to [place]. *DC/Admit/Observation/Transfer Diagnosis at time of Disposition: Abdominal pain - Discharge Dispostion Admit: No - Referrals Referrals: Michell Garrido MD [Primary Care Provider] - Joan Harper [Non Staff, Medical] - Tanvir Titus MD [Staff Physician] - - Patient Instructions Printed Discharge Instructions: Gastritis (Alternative Therapy) Additional Instructions: you need to quit smoking. you should also follow up with a trucker. Dr Joaquin who visits your facility should evaluate you for potential outpatient stress test on your heart on next visit. you should also follow up with DR HARPER this week. continue taking aspirin daily. return for any problems or concerns. you can follow up with DR Titus ( trucker ) call [phone] to schedule. - Post Discharge Activity
--- NOTE | 2017-06-02 08:45 | HOSP ---
Subjective - Review of Symptoms Subjective: was told pt was possible pending admission for elevated troponin Upon review of the chart, pt was presenting with the same symptoms she presented to the hospital 3 days earlier (05/29) and was admitted and treated for UTI and was discharged yesterday with levaquin to complete 3 day course. at that time her troponin was trended and persisted at 0.07, same as it is today on presentation. During previous admission echo was done with no wall motion abnormalities. pt has had a low tropinin leak since january 2017. recommend that pt follow up with cardiology for cardiac workup and do not believe it is necessary for inpatient workup at this time. Physical Examination Vital Signs: Vital Signs Temperature 98.2 F 06/02/17 07:45 Pulse Rate 65 06/02/17 07:45 Respiratory Rate 18 06/02/17 07:45 Blood Pressure 102/53 06/02/17 07:45 O2 Sat by Pulse Oximetry (%) 97 06/02/17 07:45 Labs: CBC, BMP 06/01/17 21:27 06/01/17 21:27
[2017-06-02 08:49] VITALS: BP 111/53; PULSE 62
[2017-06-02 08:56] LABS: TROPONIN I 0.06 ng/ml (0.00-0.05)
--- NOTE | 2017-06-02 11:30 | EKG ---
Test Reason : Blood Pressure : / mmHG Vent. Rate : 060 BPM Atrial Rate : 060 BPM P-R Int : 176 ms QRS Dur : 074 ms QT Int : 464 ms P-R-T Axes : 057 059 049 degrees QTc Int : 464 ms NORMAL SINUS RHYTHM LOW VOLTAGE QRS BORDERLINE ECG WHEN COMPARED WITH ECG OF 28-MAY-2017 23:49, NO SIGNIFICANT CHANGE WAS FOUND Confirmed by SARITA ZEE MD ([id number]) on 06/02/2017 11:29:48 AM Referred By: Confirmed By:SARITA ZEE MD
--- NOTE | 2017-06-02 11:30 | EKG ---
Test Reason : Blood Pressure : / mmHG Vent. Rate : 066 BPM Atrial Rate : 066 BPM P-R Int : 166 ms QRS Dur : 072 ms QT Int : 440 ms P-R-T Axes : 055 063 039 degrees QTc Int : 461 ms NORMAL SINUS RHYTHM NONSPECIFIC T WAVE ABNORMALITY PROLONGED QT ABNORMAL ECG WHEN COMPARED WITH ECG OF 01-JUN-2017 22:06, NO SIGNIFICANT CHANGE WAS FOUND Confirmed by SAADIA BLACKMAN, SARITA ([id number]) on 06/02/2017 11:29:43 AM Referred By: Confirmed By:SARITA ZEE MD
== END 2017-06-02 08:45 | disposition home or self-care (01) ==
LOC: JER 19:02
PROC: 3E033GC Introduction of Other Therapeutic Substance into Peripheral Vein, Percutaneous Approach (ICD-10-PCS; principal; 2017-06-01)
PROC: 3E033GC Introduction of Other Therapeutic Substance into Peripheral Vein, Percutaneous Approach (ICD-10-PCS; 2017-06-01)
DX: R10.84 Generalized abdominal pain (principal); R30.0 Dysuria; J45.909 Unspecified asthma, uncomplicated; J44.9 Chronic obstructive pulmonary disease, unspecified; F31.9 Bipolar disorder, unspecified; F41.9 Anxiety disorder, unspecified; F20.9 Schizophrenia, unspecified; K74.60 Unspecified cirrhosis of liver; Z86.69 Personal history of other diseases of the nervous system and sense organs
CPT/HCPCS: 36415; 71020-TC; 80053; 81003; 81015; 83690; 84484; 85025; 87086; 93005; 93010; 99285-25

== ENCOUNTER 2017-07-11 19:29 | Emergency (ER) | payer OTHER ==
[2017-07-11 19:59] VITALS: TEMP 98.7; BMI 32.5
--- NOTE | 2017-07-11 20:49 | PDOC ---
History of Present Illness - History of Present Illness Initial Comments: 07/12/17 20:55 The patient is a 52 year old female, with a significant past medical history of asthma, COPD, Hep C with liver cirrhosis, bipolar, anxiety, schizophrenia, seizure disorder, and history of pseudoseizures, who presents to the emergency department with productive cough,dyspnea, and diarrhea today.The patient states she woke up feeling short of breath and noticed she had a cough productive of green sputum.She reports her dyspnea is exacerbated with lying flat. She reports chest pain when she coughs, but denies chest pain when she is resting. There is no worsening of her chest pain on exertion. The patient reports using symbicort and steroids without relief of symptoms. She also reports taking Tylenol without relief. Secondarily, the patient reports pain to her left calf. She states she has been taking prednisone for 2 weeks s/p COPD exacerbation. The patient reports one episode of nonbloody emesis after dinner which she attributes to excessive coughing yesterday, non today and she has been tolerating oral intake.. The patient states she has had diarrhea for about 4 days which is loose and green. She denies hematochezia. She denies exertional chest pain, palpitations headache and dizziness. She denies fever, chills, nausea and constipation. She denies frequency, urgency and hematuria. Allergies: NKDA PCP - Dr. Garrido <Emily Singh - Last Filed: 07/12/17 01:11> <Semaj Hollis - Last Filed: 07/13/17 09:17> - General Chief Complaint: Respiratory Stated Complaint: CHEST PAIN Time Seen by Provider: 07/11/17 20:08 Past History <Emily Singh - Last Filed: 07/12/17 01:11> - Past Medical History Anemia: No Asthma: Yes Cancer: No Cardiac Disorders: No CVA: No COPD: Yes CHF: No Dementia: No Diabetes: No GI Disorders: Yes (ACID REFLUX,HEP C) Disorders: No HTN: No Hypercholesterolemia: No Kidney Stones: No Liver Disease: Yes (cirrhosis, Hep C) Psychiatric Problems: Yes (bipolar, anxiety) Seizures: Yes Thyroid Disease: No - Surgical History Abdominal Surgery: No Appendectomy: No Cardiac Surgery: No Cholecystectomy: Yes Lung Surgery: No Neurologic Surgery: No Orthopedic Surgery: No - Reproductive History PID: No - Immunization History Immunization Up to Date: Yes - Suicide/Smoking/Psychosocial Hx Smoking History: Current every day smoker Have you smoked in the past 12 months: No Number of Cigarettes Smoked Daily: 3 Information on smoking cessation initiated: No 'Breaking Loose' booklet given: 10/26/16 Hx Alcohol Use: No Drug/Substance Use Hx: No Substance Use Type: Cocaine, Opiates Hx Substance Use Treatment: Yes (completed this program in 2005.) <Semaj Hollis - Last Filed: 07/13/17 09:17> - Past Medical History Allergies/Adverse Reactions: Allergies Allergy/AdvReac Type Severity Reaction Status Date / Time Penicillins Allergy Severe Rash Verified 07/11/17 19:46 Sulfa (Sulfonamide Allergy Severe Rash Verified 07/11/17 19:46 Antibiotics) azithromycin [From Zithromax] Allergy Verified 07/11/17 19:46 codeine Allergy Hives Verified 07/11/17 19:46 erythromycin base Allergy Verified 07/11/17 19:46 haloperidol [From Haldol] Allergy Swelling Verified 07/11/17 19:46 iodine Allergy Verified 07/11/17 19:46 iron Allergy Verified 07/11/17 19:46 lactase [From Dairy Aid] Allergy Verified 07/11/17 19:46 latex Allergy Hives Verified 07/11/17 19:46 ondansetron HCl Allergy Verified 07/11/17 19:46 [From Zofran (as hydrochloride)] phenobarbital Allergy Verified 07/11/17 19:46 Pork/Porcine Containing Allergy Verified 07/11/17 19:46 Products shellfish derived Allergy Difficulty Verified 07/11/17 19:46 Breathing tetracycline Allergy Verified 07/11/17 19:46 Home Medications: Ambulatory Orders Albuterol Sulfate Inhaler - [Ventolin HFA Inhaler -] 2 inh PO Q6H 12/25/16 Aspirin [Aspirin EC] 81 mg PO DAILY 12/25/16 Bisacodyl [Bisacodyl -] 5 mg PO DAILY PRN 12/25/16 Pantoprazole Sodium [Protonix] 40 mg PO DAILY 12/25/16 Topiramate [Topamax -] 100 mg PO DAILY 12/25/16 Albuterol Sulfate [Proair Respiclick] 90 mcg IH DAILY 12/29/16 Budesonide/Formeterol Fumarate [SYMBICORT 80/4.5mcg -] 1 inh PO BID 12/29/16 Citalopram Hydrobromide [Celexa -] 20 mg PO DAILY 12/29/16 Lacosamide [Vimpat -] 100 mg PO BID 12/29/16 Tiotropium Ovid [Spiriva] 1 inh PO DAILY 12/29/16 Divalproex Sodium [Depakote] 1,000 mg PO BID 01/25/17 Guaifenesin [Robitussin] 10 ml PO TID PRN #1 bottle 07/11/17 Levofloxacin [Levaquin -] 500 mg PO DAILY #4 tablet 07/11/17 Respiratory Specific PMHX - Complaint Specific PMHX TB (Tuberculosis): No <Semaj Hollis - Last Filed: 07/13/17 09:17> Review of Systems - Review of Systems Able to Perform ROS?: Yes Comments:: 07/12/17 20:56 CONSTITUTIONAL: No reported: Fever, Chills, Diaphoresis, Generalized Weakness, Malaise, Loss of Appetite HEENT: No reported: Rhinorrhea, Nasal Congestion, Throat Pain, Throat Swelling, Difficulty Swallowing, Mouth Swelling, Ear Pain, Eye Pain, Visual Changes CARDIOVASCULAR: +cp with coughing No reported: Syncope, Palpitations, Irregular Heart Rate, Lightheadedness, Peripheral Edema RESPIRATORY: (+) Cough, Shortness of Breath, No reported:SOB with Exertion, Wheezing, Stridor, Hemoptysis GASTROINTESTINAL: +post tussive vomiting x 1 No reported: Abdominal pain, Abdominal Distension, Nausea, Diarrhea, Constipation, Melena, Hematochezia GENITOURINARY: No reported: Dysuria, Frequency, Urgency, Hesitancy, Flank Pain, Genital Pain MUSCULOSKELETAL: No reported: Myalgia, Arthralgia, Joint Swelling, Back pain, Neck Pain SKIN: No reported: Rash, Itching, Pallor HEMEATOLOGIC/IMMUNOLOGIC: No reported: Easy Bleeding, Easy Bruising, Lymphadenopathy, Frequent infections ENDOCRINE: No reported: Unexplained Weight Gain, Unexplained Weight Loss, Heat Intolerance , Cold Intolerance NEUROLOGIC: No reported: Headache, Focal Weakness, Paresthesias, Vertigo, Lightheadedness, Unsteady Gait, Seizure, Mental Status Changes, Incontinence PSYCHIATRIC: No reported: Anxiety, Depression <Emily Singh - Last Filed: 07/12/17 01:11> *Physical Exam - Vital Signs Last Vital Signs Temp Pulse Resp BP Pulse Ox 98.7 F 77 16 97/58 98 07/11/17 19:47 07/11/17 19:47 07/11/17 19:47 07/11/17 19:47 07/11/17 19:47 - Physical Exam Comments: 07/12/17 01:11 GENERAL: The patient is awake, alert, and fully oriented, Nontoxic - in no acute distress. HEAD: Normocephalic, atraumatic. EYES: extraocular movements intact, sclera anicteric, conjunctiva clear. ENT: Normal voice, Moist mucous membranes. NECK: Normal range of motion, supple LUNGS: Breath sounds equal, clear to auscultation bilaterally. HEART: Regular rate and rhythm, without murmur, rub or gallop. ABDOMEN: Soft, nontender, normoactive bowel sounds. No guarding, no rebound.No CVA tenderness EXTREMITIES: mild tenderness to L calf, no significant swelling appreciated NEUROLOGICAL: No facial assymetry, Normal speech, PSYCH: Normal mood, normal affect. SKIN: Warm, Dry, normal turgor, <Emily Singh - Last Filed: 07/12/17 01:11> - Vital Signs Last Vital Signs Temp Pulse Resp BP Pulse Ox 98.7 F 77 16 97/58 98 07/11/17 19:47 07/11/17 19:47 07/11/17 19:47 07/11/17 19:47 07/11/17 19:47 <Semaj Hollis - Last Filed: 07/13/17 09:17> Heart Score/ECG Review - ECG Impressions Comment:: 07/11/17 21:27 Twelve-lead EKG was performed and reviewed by me. There is normal sinus rhythm with a normal rate. Rate of 75 The axis is normal. The intervals are normal. There is normal R wave progression There are no ST or T wave abnormalities. Impression: Normal twelve-lead EKG <Semaj Hollis - Last Filed: 07/13/17 09:17> ED Treatment Course - LABORATORY CBC & Chemistry Diagram: 07/11/17 21:33 07/11/17 21:33 - ADDITIONAL ORDERS Additional order review: Laboratory Results 07/11/17 21:33 Sodium 140 Potassium 3.5 Chloride 108 H Carbon Dioxide 23 Anion Gap 9 BUN 15 Creatinine 0.8 D Creat Clearance w eGFR > 60 Random Glucose 103 D Calcium 7.9 L Total Bilirubin 0.2 D AST 10 L D ALT 15 Alkaline Phosphatase 45 Total Protein 6.1 L Albumin 3.1 L 07/11/17 21:33 RBC 3.46 L D MCV 97.4 H MCHC 33.5 RDW 14.0 MPV 8.3 Neutrophils % No Result Required. Lymphocytes % No Result Required. - RADIOLOGY Radiograph Interpretation: DATE OF SERVICE: 2017-07-11 21:57:07 IMAGES: 21 EXAM: VENOUS DUPLEX UNILATERAL No evidence for DVT left lower extremity. Katie Vail M.D. 07/11/2017 22:51 EST - Medications Given in the ED: ED Medications Discontinued Medications Generic Name Dose Route Start Last Admin Trade Name Freq PRN Reason Stop Dose Admin Albuterol/Ipratropium 1 amp 07/11/17 20:50 07/11/17 20:45 Duoneb - NEB 07/11/17 20:51 2 amp ONCE ONE Administration Metoclopramide HCl 10 mg 07/11/17 23:09 07/11/17 23:09 Reglan - PO 07/11/17 23:10 10 mg NOW ONE Administration Oxycodone/Acetaminophen 1 combo 07/11/17 23:13 07/11/17 23:32 Percocet 5/325 - PO 07/11/17 23:14 1 combo ONCE ONE Administration <Emily Singh - Last Filed: 07/12/17 01:11> - LABORATORY CBC & Chemistry Diagram: 07/11/17 21:33 07/11/17 21:33 <Semaj Hollis - Last Filed: 07/13/17 09:17> Medical Decision Making - Medical Decision Making 07/11/17 21:21 52y F hx of sezirues, copd, asthma, bipolar disorder presents [facility] for evaluation of chest pain, cough, sob x 1 day w/o fever/chills, cough productive of greenish sputum. pt using her nebs without improvement. pt denies any hemptysis. pt also notes some slight swelling of her LE. exam as documented but pt in generally is well appearing in no disterss will ck cxr, bsaic labs ekg to screen for acs, although based on her clinical presentation do no thtink acs is likely will ck duplex to r/o dvt due to perceived L leg edema 07/11/17 23:12 pt 07/11/17 23:20 lbas reviewed cxr neg for infiltrates dvt study pending will dc pt with albuterol antitussive 07/11/17 23:39 dvt negative will dc with abx for bronchitis as pt has had increased sputum production and hx of copd Pt feeling improved an requesting discharge I discussed the physical exam findings, ancillary test results and final diagnoses with the patient. I answered all of the patient's questions. The patient was satisfied with the care received and felt comfortable with the discharge plan and treatment plan. The patient will call their primary care physician within 24 hours to arrange follow-up and will return to the Emergency Department with any new, persistent or worsening symptoms. <Semaj Hollis - Last Filed: 07/13/17 09:17> *DC/Admit/Observation/Transfer - Attestations Scribe Attestion: 07/12/17 00:01 Documentation prepared by Emily Singh, acting as medical technologist hematology for Semaj Hollis MD, <Emily Singh - Last Filed: 07/12/17 01:11> - Discharge Dispostion Admit: No <Semaj Hollis - Last Filed: 07/13/17 09:17> Diagnosis at time of Disposition: Bronchitis - Discharge Dispostion Disposition: HOME Condition at time of disposition: Improved - Prescriptions Prescriptions: Levofloxacin [Levaquin -] 500 mg PO DAILY #4 tablet Guaifenesin [Robitussin] 10 ml PO TID PRN #1 bottle PRN Reason: Cough - Referrals Referrals: Michell Garrido MD [Primary Care Provider] - - Patient Instructions Printed Discharge Instructions: DI for Acute Bronchitis Additional Instructions: Return to the emergency department immediately with ANY new, persistent or worsening symptoms. You MUST call and follow up with your doctor tomorrow for further evaluation of your symptoms. Results were discussed with you. Please make sure your doctor reviews the results of your emergency evaluation. If you had any xrays during your visit, it was read preliminarily by myself, a Radiologist will review it and if there are any additional findings we will call you. Print Language: HONG KONGER
[2017-07-11] MEDS ORDERED: ALBUTEROL SO4 2.5/IPRATROPIUM 0.5 INH SOL 3 ML VIAL.NEB. NEB ONE (20:50)
[2017-07-11 21:53] LABS: MCH 32.6 pg (25.7-33.7); MCHC 33.5 g/dl (32.0-36.0); MEAN CELL VOLUME 97.4 fl (80-96); MEAN PLT VOLUME 8.3 fl (7.5-11.1); PLATELET COUNT 203 K/MM3 (134-434); WHITE BLOOD COUNT 6.2 K/mm3 (4.0-10.0)
[2017-07-11 22:17] LABS: ALBUMIN 3.1 g/dl (3.4-5.0); ALK PHOS 45 U/L (45-117); ANION GAP 9 (8-16); BILIRUBIN,TOTAL 0.2 mg/dL (0.2-1.0); CALCIUM 7.9 mg/dL (8.5-10.1); CO2 23 mmol/L (21-32); CREATININE 0.8 mg/dL (0.55-1.02); GLUCOSE,RANDOM 103 mg/dL (74-106); SGOT/AST 10 U/L (15-37); SGPT/ALT 15 U/L (12-78); TOT PROT 6.1 g/dl (6.4-8.2)
[2017-07-11 22:42] LABS: PLATELET ESTIMATE ADEQUATE (NORMAL); REACTIVE LYMPHOCYTES 2 % (0-80); TOTAL CELLS COUNTED 100
[2017-07-11] MEDS ORDERED: ONDANSETRON *ODT* 4 MG TABLET ONE (23:03)
[2017-07-11] MEDS ORDERED: METOCLOPRAMIDE HCL 10 MG TABLET (FP) PO ONE ×2 (23:07→23:09)
[2017-07-12 07:02] VITALS: BP 95/62; PULSE 70
--- NOTE | 2017-07-12 11:05 | EKG ---
Test Reason : Blood Pressure : / mmHG Vent. Rate : 075 BPM Atrial Rate : 075 BPM P-R Int : 164 ms QRS Dur : 074 ms QT Int : 412 ms P-R-T Axes : 040 060 035 degrees QTc Int : 460 ms NORMAL SINUS RHYTHM NORMAL ECG WHEN COMPARED WITH ECG OF 02-JUN-2017 08:27, T WAVE VARIATION Confirmed by IVET RÍOS MD ([id number]) on 07/12/2017 11:04:40 AM Referred By: Confirmed By:IVET RÍOS MD
== END 2017-07-12 11:45 | disposition home or self-care (01) ==
LOC: JER 19:29
PROC: 3E0F7GC Introduction of Other Therapeutic Substance into Respiratory Tract, Via Natural or Artificial Opening (ICD-10-PCS; principal; 2017-07-11)
DX: J40 Bronchitis, not specified as acute or chronic (principal); J45.909 Unspecified asthma, uncomplicated; J44.9 Chronic obstructive pulmonary disease, unspecified; K21.9 Gastro-esophageal reflux disease without esophagitis; B18.2 Chronic viral hepatitis C; F31.9 Bipolar disorder, unspecified; F41.9 Anxiety disorder, unspecified; F20.9 Schizophrenia, unspecified; G40.909 Epilepsy, unspecified, not intractable, without status epilepticus; F17.210 Nicotine dependence, cigarettes, uncomplicated
CPT/HCPCS: 36415; 71020-TC; 80053; 85025; 93005; 93010; 93971-TC; 94640; 99282-25

== ENCOUNTER 2023-11-02 14:51 | Inpatient (IN) | payer OTHER ==
[2023-11-02 15:12] VITALS: BMI 30.1
[2023-11-02] MEDS ORDERED: POLYETHYLENE GLYCOL (HEALTHYLAX) 3350 17 GM PACKET PO PRN (16:18)
[2023-11-02] MEDS ORDERED: MAGNESIUM HYDROX 2400MG/30ML ORAL SUSPENSION 30 ML CUP PO PRN (16:18)
[2023-11-02] MEDS ORDERED: BENZOCAINE/MENTHOL (CHLORASEPTIC ) LOZENGE MM PRN (16:18)
[2023-11-02] MEDS ORDERED: LOPERAMIDE HCL 2 MG CAPSULE PO PRN (16:18)
[2023-11-02] MEDS ORDERED: BENZONATATE 200 MG CAPSULE PO PRN (16:18)
[2023-11-02] MEDS ORDERED: MAG HYDROX/AL HYDROX/SIMETH 30 ML UNIT-DOSE CUP PO PRN (16:18)
[2023-11-02] MEDS ORDERED: P-EPHED 60MG/TRIPROLIDI 2.5MG TABLET PO PRN (16:18)
[2023-11-02] MEDS ORDERED: ACETAMINOPHEN 325 MG TABLET (FP) PO PRN (16:18)
[2023-11-02] MEDS ORDERED: NICOTINE POLACRILEX 2 MG GUM BUC PRN (16:18)
[2023-11-02] MEDS ORDERED: IBUPROFEN 400 MG TABLET (FP) PO PRN (16:18)
[2023-11-02] MEDS ORDERED: guaiFENesin 600 MG TABLET.ER (FP) PO PRN (16:18)
[2023-11-02] MEDS ORDERED: IBUPROFEN 600 MG TABLET (FP) PO ONE (17:28)
[2023-11-02] MEDS: IBUPROFEN 600 MG TABLET (FP) PO PRN (17:35)
[2023-11-02 18:56] LABS: EPI CELLS >36 /uL (0-25.1); HYALINE CASTS 15 /uL (0-3.1); PH,URINE 5.5 (5.0-8.0); URINE APPEARANCE CLOUDY; URINE BACTERIA 141 /uL (0-1359); URINE BILIRUBIN NEGATIVE (NEGATIVE); URINE COLOR YELLOW; URINE GLUCOSE (UA) NEGATIVE (NEGATIVE); URINE KETONE TRACE (NEGATIVE); URINE LEUK ESTERASE 2+ (NEGATIVE); URINE NITRITE NEGATIVE (NEGATIVE); URINE PROTEIN TRACE (NEGATIVE); URINE WBC 905 /uL (0-25.8)
[2023-11-02 20:49] LABS: URINE RBC 18.7 /uL (0-23.9)
[2023-11-02] MEDS: MELATONIN 5 MG TABLETS PO SCH (21:06)
[2023-11-02] MEDS: DIVALPROEX SODIUM 500 MG TABLET E.C. PO SCH (21:06)
[2023-11-02] MEDS: LACOSAMIDE 50 MG TABLET PO SCH (21:06)
[2023-11-02] MEDS: THIAMINE HCL 100 MG TABLET (FP) PO SCH (21:06)
[2023-11-02] MEDS: GABAPENTIN 100 MG CAPSULE PO SCH (21:06)
[2023-11-02] MEDS: NITROFURANTOIN MONOHYD/M-CRYST 100 MG CAPSULE PO SCH (22:01)
[2023-11-03] MEDS: ALBUTEROL SO4 HFA INHALER IH PRN (14:23)
[2023-11-03] MEDS: hydrOXYzine PAMOATE 25 MG CAPSULE (FP) PO ONE (16:15)
[2023-11-04] MEDS ORDERED: LORazepam 4 MG/1 ML VIAL IM ONE (12:00)
[2023-11-04 14:33] VITALS: BP 123/84; PULSE 67; RESP 22; TEMP 98.1
== END 2023-11-05 00:46 | disposition short-term general hospital (02) | DRG 772 ==
LOC: YASAS 14:51 → Y5N 17:09
PROVIDERS: ADMIT Allergy & Immunology; ATTEND Psychiatry & Neurology Pain Medicine
PROC: HZ42ZZZ Group Counseling for Substance Abuse Treatment, Cognitive-Behavioral (ICD-10-PCS; principal; 2023-11-02)
DX: F10.20 Alcohol dependence, uncomplicated (principal); F14.20 Cocaine dependence, uncomplicated; F17.210 Nicotine dependence, cigarettes, uncomplicated; F31.9 Bipolar disorder, unspecified; G40.909 Epilepsy, unspecified, not intractable, without status epilepticus; J44.9 Chronic obstructive pulmonary disease, unspecified; R82.998 Other abnormal findings in urine; Z56.0 Unemployment, unspecified; Z59.00 Homelessness unspecified; Z88.0 Allergy status to penicillin; Z88.1 Allergy status to other antibiotic agents; Z88.2 Allergy status to sulfonamides; Z88.8 Allergy status to other drugs, medicaments and biological substances
CPT/HCPCS: 81003; 82962; 87635; 99285-25

== ENCOUNTER 2023-11-07 15:44 | Inpatient (IN) | payer OTHER ==
[2023-11-07 16:34] VITALS: BMI 30.1
[2023-11-07] MEDS ORDERED: POLYETHYLENE GLYCOL (HEALTHYLAX) 3350 17 GM PACKET PO PRN (16:47)
[2023-11-07] MEDS ORDERED: MAGNESIUM HYDROX 2400MG/30ML ORAL SUSPENSION 30 ML CUP PO PRN (16:47)
[2023-11-07] MEDS ORDERED: BENZOCAINE/MENTHOL (CHLORASEPTIC ) LOZENGE MM PRN (16:47)
[2023-11-07] MEDS ORDERED: P-EPHED 60MG/TRIPROLIDI 2.5MG TABLET PO PRN (16:47)
[2023-11-07] MEDS ORDERED: BISACODYL 5 MG TABLET.DR (FP) PO PRN (16:47)
[2023-11-07] MEDS ORDERED: IBUPROFEN 400 MG TABLET (FP) PO PRN ×2 (16:47→16:50)
[2023-11-07] MEDS ORDERED: guaiFENesin 600 MG TABLET.ER (FP) PO PRN (16:47)
[2023-11-07] MEDS ORDERED: BENZONATATE 200 MG CAPSULE PO PRN (16:47)
[2023-11-07] MEDS ORDERED: IBUPROFEN 600 MG TABLET (FP) PO PRN (16:47)
[2023-11-07] MEDS ORDERED: LOPERAMIDE HCL 2 MG CAPSULE PO PRN (16:47)
[2023-11-07] MEDS ORDERED: MAG HYDROX/AL HYDROX/SIMETH 30 ML UNIT-DOSE CUP PO PRN (16:47)
[2023-11-07] MEDS: LIDOCAINE 4% PATCH TP SCH (20:00)
[2023-11-07] MEDS: METHOCARBAMOL 500 MG TABLET PO PRN (20:05)
[2023-11-07] MEDS: SENNOSIDES 8.6MG TABLET (FP) PO PRN (20:05)
[2023-11-07] MEDS: DIVALPROEX SODIUM 500 MG TABLET E.C. PO SCH (21:30)
[2023-11-07] MEDS: GABAPENTIN 100 MG CAPSULE PO SCH (21:30)
[2023-11-07] MEDS: LACOSAMIDE 50 MG TABLET PO SCH (21:32)
[2023-11-07] MEDS: MELATONIN 5 MG TABLETS PO SCH (21:32)
[2023-11-07] MEDS: LIDOCAINE PATCH REMOVAL MC SCH (21:32)
[2023-11-07] MEDS: NITROFURANTOIN MONOHYD/M-CRYST 100 MG CAPSULE PO SCH (21:32)
[2023-11-08] MEDS: FOLIC ACID 1 MG TABLET (FP) PO SCH (09:50)
[2023-11-08] MEDS: MECLIZINE HCL 12.5 MG TABLET PO PRN (09:51)
[2023-11-08] MEDS: THIAMINE HCL 100 MG TABLET (FP) PO SCH (09:54)
[2023-11-08] MEDS: DULoxetine HCL 20 MG CAPSULE.DR PO ONE (15:28)
[2023-11-09] MEDS: DOCUSATE SODIUM 100 MG CAPSULE (FP) PO PRN (09:56)
[2023-11-09] MEDS: DULoxetine HCL 20 MG CAPSULE.DR PO SCH (09:57)
[2023-11-09] MEDS: ARIPiprazole 15 MG TABLET PO SCH (10:42)
[2023-11-09] MEDS: ACETAMINOPHEN 325 MG TABLET (FP) PO PRN (13:38)
[2023-11-10] MEDS: hydrOXYzine PAMOATE 25 MG CAPSULE (FP) PO PRN (12:34)
[2023-11-10] MEDS ORDERED: ASPIRIN 81 MG CHEWABLE TABLETS ONE (13:44)
[2023-11-10] MEDS: ASPIRIN COATED 81 MG TABLET.EC PO SCH (13:45)
[2023-11-12] MEDS: RIFAXIMIN 550 MG TABLET PO SCH (21:19)
[2023-11-14] MEDS: NICOTINE POLACRILEX 2 MG GUM BUC PRN (13:12)
[2023-11-14 15:58] VITALS: RESP 18
[2023-11-15] MEDS: PHENAZOPYRIDINE HCL 100 MG TABLET (FP) PO ONE (12:49)
[2023-11-15 15:25] LABS: EPI CELLS 30 /uL (0-25.1); HYALINE CASTS 0 /uL (0-3.1); PH,URINE 6.5 (5.0-8.0); URINE APPEARANCE CLEAR; URINE BACTERIA 39 /uL (0-1359); URINE BILIRUBIN NEGATIVE (NEGATIVE); URINE COLOR YELLOW; URINE GLUCOSE (UA) NEGATIVE (NEGATIVE); URINE KETONE TRACE (NEGATIVE); URINE LEUK ESTERASE 3+ (NEGATIVE); URINE NITRITE NEGATIVE (NEGATIVE); URINE PROTEIN NEGATIVE (NEGATIVE); URINE RBC 12 /uL (0-23.9); URINE UROBILINOGEN 0.2 mg/dL (0.2-1.0); URINE WBC 45 /uL (0-25.8)
[2023-11-16] MEDS: METHYL SALICYLATE/MENTHOL OINT 30 GM TUBE TP SCH (21:13)
[2023-11-17 17:42] VITALS: BP 158/68; PULSE 65; TEMP 98.1
== END 2023-11-18 10:28 | DRG 772 ==
LOC: YASAS 15:44 → Y5N 17:04
PROVIDERS: ADMIT Allergy & Immunology; ATTEND Psychiatry & Neurology Pain Medicine
PROC: HZ42ZZZ Group Counseling for Substance Abuse Treatment, Cognitive-Behavioral (ICD-10-PCS; principal; 2023-11-07)
DX: F10.20 Alcohol dependence, uncomplicated (principal); F14.20 Cocaine dependence, uncomplicated; F17.210 Nicotine dependence, cigarettes, uncomplicated; F25.9 Schizoaffective disorder, unspecified; E72.20 Disorder of urea cycle metabolism, unspecified; G40.909 Epilepsy, unspecified, not intractable, without status epilepticus; I10 Essential (primary) hypertension; J44.9 Chronic obstructive pulmonary disease, unspecified; I25.2 Old myocardial infarction; R07.9 Chest pain, unspecified; R45.851 Suicidal ideations; R79.89 Other specified abnormal findings of blood chemistry; N39.0 Urinary tract infection, site not specified; N20.0 Calculus of kidney; Z20.822 Contact with and (suspected) exposure to COVID-19; Z87.442 Personal history of urinary calculi; Z99.89 Dependence on other enabling machines and devices; Z88.0 Allergy status to penicillin; Z88.2 Allergy status to sulfonamides; Z88.1 Allergy status to other antibiotic agents; Z88.8 Allergy status to other drugs, medicaments and biological substances
CPT/HCPCS: 0241U-QW; 36415; 70450-TC; 71045-TC-FY; 72125-TC; 76775-TC; 80048; 80053; 80164; 80307; 81003; 82140; 82550; 82962; 83735; 84100; 84484; 85025; 85027; 87086; 93005; 93010; 99282-25; G0378; J0131

== ENCOUNTER 2025-05-23 09:44 | Inpatient (IN) | payer OTHER ==
[2025-05-23 10:15] VITALS: BMI 28.1
[2025-05-23] MEDS ORDERED: LOPERAMIDE HCL 2 MG CAPSULE PO PRN (10:39)
[2025-05-23] MEDS ORDERED: BISMUTH SUBSALICYLATE 524 MG/30 ML PO PRN (10:39)
[2025-05-23] MEDS ORDERED: IBUPROFEN 400 MG TABLET (FP) PO PRN (10:39)
[2025-05-23] MEDS ORDERED: POLYETHYLENE GLYCOL (HEALTHYLAX) 3350 17 GM PACKET PO PRN (10:39)
[2025-05-23] MEDS ORDERED: NICOTINE POLACRILEX 4 MG GUM BUC PRN (10:39)
[2025-05-23] MEDS ORDERED: MAGNESIUM HYDROX 2400MG/30ML ORAL SUSPENSION 30 ML CUP PO PRN (10:39)
[2025-05-23] MEDS ORDERED: ACETAMINOPHEN 325 MG TABLET (FP) PO PRN (10:39)
[2025-05-23] MEDS ORDERED: DICYCLOMINE HCL 10 MG CAPSULE PO PRN (10:39)
[2025-05-23] MEDS ORDERED: guaiFENesin 600 MG TABLET.ER (FP) PO PRN (10:39)
[2025-05-23] MEDS ORDERED: ONDANSETRON *ODT* 4 MG TABLET SL PRN (10:39)
[2025-05-23] MEDS ORDERED: BENZONATATE 200 MG CAPSULE PO PRN (10:39)
[2025-05-23] MEDS ORDERED: NALOXONE (NARCAN) HCL 4 MG/0.1 ML SPRAY NS PRN (10:39)
[2025-05-23] MEDS ORDERED: BENZOCAINE/MENTHOL (CHLORASEPTIC ) LOZENGE MM PRN (10:39)
[2025-05-23] MEDS ORDERED: ALBUTEROL SO4 HFA INHALER IH PRN (10:41)
[2025-05-23] MEDS ORDERED: IBUPROFEN 600 MG TABLET (FP) PO ONE (12:52)
[2025-05-23] MEDS ORDERED: PRENATAL VITAMINS W/ FOLIC ACID TABLET (FP) PO ONE (12:52)
[2025-05-23] MEDS: IBUPROFEN 600 MG TABLET (FP) PO PRN (12:53)
[2025-05-23] MEDS: PRENATAL VITAMINS W/ FOLIC ACID TABLET (FP) PO SCH (12:53)
[2025-05-23] MEDS: NALTREXONE HCL 50 MG TABLET PO ONE (13:53)
[2025-05-23] MEDS: MAG HYDROX/AL HYDROX/SIMETH 30 ML UNIT-DOSE CUP PO PRN (17:19)
[2025-05-23] MEDS ORDERED: levETIRAcetam 500 MG TABLET (FP) PO SCH (22:00)
[2025-05-23] MEDS: DIVALPROEX SODIUM 500 MG TABLET E.C. PO SCH (22:21)
[2025-05-23] MEDS: levETIRAcetam 500 MG TABLET (FP) PO SCH (22:21)
[2025-05-23] MEDS: THIAMINE 100 MG TABLET PO SCH (22:22)
[2025-05-23] MEDS: MELATONIN 5 MG TABLETS PO SCH (22:22)
[2025-05-23] MEDS: METHOCARBAMOL 500 MG TABLET PO PRN (22:22)
[2025-05-24] MEDS: ASPIRIN 81 MG CHEWABLE TABLETS PO SCH (09:37)
[2025-05-24] MEDS: NALTREXONE HCL 50 MG TABLET PO SCH (09:37)
[2025-05-24] MEDS: PANTOPRAZOLE 40 MG TABLET PO SCH (09:37)
[2025-05-24] MEDS: BUDESONIDE/FORMETEROL FUMARATE 160/4.5 mcg INHALER IH SCH (09:38)
[2025-05-24] MEDS: hydrOXYzine PAMOATE 25 MG CAPSULE (FP) PO PRN (11:49)
[2025-05-24] MEDS ORDERED: BISACODYL 5 MG TABLET.DR (FP) PO PRN (12:27)
[2025-05-24] MEDS: KETOROLAC TROMETHAMINE 15 MG/ML VIAL IM ONE (15:21)
[2025-05-24] MEDS: POLYETHYLENE GLYCOL (HEALTHYLAX) 3350 17 GM PACKET PO SCH (22:09)
[2025-05-25 10:06] LABS: MCHC 32.6 g/dl (32.2-35.5); MEAN CELL VOLUME 93.6 fl (79.4-94.8); MEAN PLT VOLUME 10.3 fl (9.4-12.3); RDW 13.8 % (12.4-16.4)
[2025-05-25 11:14] LABS: GLUCOSE,RANDOM 87.0 mg/dL (74-106); TOT PROT 6.3 g/dl (6.4-8.2)
[2025-05-25 11:16] LABS: CO2 27.0 mmol/L (21-32)
[2025-05-25 11:17] LABS: ALK PHOS 51.0 U/L (40-150)
[2025-05-25 11:20] LABS: CREATININE 0.46 mg/dL (0.55-1.3); SGOT/AST 16.0 U/L (5-34); SGPT/ALT 11.0 U/L (0-55)
[2025-05-25 14:36] LABS: SYPHILIS W/ RPR CONF REACTIVE (NONREACTIVE)
[2025-05-26 12:59] LABS: RPR REFLEX REACTIVE 1:1 (NONREACTIVE)
[2025-05-26 15:53] LABS: EPI CELLS 13 /uL (0-25.1); HYALINE CASTS 0 /uL (0-3.1); URINE APPEARANCE CLEAR; URINE BACTERIA 125 /uL (0-1359); URINE BILIRUBIN NEGATIVE (NEGATIVE); URINE COLOR YELLOW; URINE GLUCOSE (UA) NEGATIVE (NEGATIVE); URINE KETONE NEGATIVE (NEGATIVE); URINE LEUK ESTERASE 2+ (NEGATIVE); URINE NITRITE NEGATIVE (NEGATIVE); URINE PROTEIN NEGATIVE (NEGATIVE); URINE RBC 6 /uL (0-23.9); URINE UROBILINOGEN 0.2 mg/dL (0.2-1.0)
[2025-05-26] MEDS: CLINDAMYCIN HCL 150 MG CAPSULE (FP) PO SCH (18:53)
[2025-05-27 10:10] VITALS: BP 120/67; PULSE 81; RESP 16; TEMP 97.7
== END 2025-05-27 09:23 | disposition home or self-care (01) | DRG 774 ==
LOC: YASAS 09:44 → Y6N 12:58 → UNDOADMIN 12:58 → Y6N 05-26 18:06 → UNDODISIN 05-27 09:23
PROVIDERS: ADMIT Allergy & Immunology; ATTEND Allergy & Immunology
PROC: HZ2ZZZZ Detoxification Services for Substance Abuse Treatment (ICD-10-PCS; principal; 2025-05-23)
DX: F10.230 Alcohol dependence with withdrawal, uncomplicated (principal); F14.20 Cocaine dependence, uncomplicated; F17.210 Nicotine dependence, cigarettes, uncomplicated; F19.282 Other psychoactive substance dependence with psychoactive substance-induced sleep disorder; F19.24 Other psychoactive substance dependence with psychoactive substance-induced mood disorder; F31.9 Bipolar disorder, unspecified; E78.5 Hyperlipidemia, unspecified; G40.909 Epilepsy, unspecified, not intractable, without status epilepticus; I10 Essential (primary) hypertension; L03.116 Cellulitis of left lower limb; K21.9 Gastro-esophageal reflux disease without esophagitis; Z59.01 Sheltered homelessness; Z88.0 Allergy status to penicillin; Z88.2 Allergy status to sulfonamides
CPT/HCPCS: 36415; 74019-TC-FY; 80053; 80307; 81003; 85027; 86593; 86780; 87086; 93005; 93010